=== PATIENT | female | born 1945 | race Caucasian/White ===

== ENCOUNTER 2017-03-25 07:02 | Day surgery (SDC) | payer MEDICARE, OTHER ==
[~2017-03-25 07:02] MED LIST: Lactated Ringers 1,000 ML IV SCH; Lidocaine 1%/Sod Bicarbonate in NS 8.4% 1 ML Syringe PRN; Sodium Chloride 0.9% 10 ML Syringe FLUSH PRN
[2017-03-25] MEDS ORDERED: Propofol 200 MG/20 ML SDV ONE ×3 (07:22→09:13)
[2017-03-25] MEDS ORDERED: fentaNYL 100 MCG/2 ML SDV ONE (07:22)
[2017-03-25] MEDS ORDERED: Lidocaine 1% 4 ML ONE (07:24)
[2017-03-25] MEDS ORDERED: Levalbuterol HCl 0.63 MG/3 ML Neb NEB ONE (07:34)
--- NOTE | 2017-03-25 07:44 | PCM.PREANE ---
Preanesthetic Assessment - Procedure Proposed Procedure: Diagnostic EGD/ Colonoscopy - Anesthesia/Transfusion/Family Hx Anesthesia History: Prior Anesthesia Without Reaction Family History of Anesthesia Reaction: No Transfusion History: No Prior Transfusion(s) - Review of Systems General: No Symptoms Pulmonary: Shortness of Breath (COPD) Cardiovascular: Other (HTN, HLD) Neurological: No Symptoms Other: Reports: None, Anxiety - Physical Assessment NPO Status Date: 03/24/17 NPO Status Time: 20:30 Pulse: 98 O2 Sat by Pulse Oximetry: 94 Respiratory Rate: 20 Blood Pressure: 173/78 Temperature: 36.4 C Height: 1.6 m Weight: 67 kg ASA Class: 3 Mental Status: Alert & Oriented x3 Airway Class: Mallampati = 2 Dentition: Reports: Dentures (upper and lower ) Thyro-Mental Finger Breadths: 3 Mouth Opening Finger Breadths: 3 ROM/Head Extension: Full Lungs: Clear to Auscultation, Normal Respiratory Effort Cardiovascular: Regular Rate, Regular Rhythm - Allergies Allergies/Adverse Reactions: Allergies Allergy/AdvReac Type Severity Reaction Status Date / Time cefaclor Allergy Cannot Verified 03/24/17 16:51 Remember - Blood Blood Available: No Product(s) Available: None - Anesthesia Plan Pre-Op Medication Ordered: Other (albuterol neb) - Acknowledgements Anesthesia Type Planned: MAC Pt an Appropriate Candidate for the Planned Anesthesia: Yes Alternatives and Risks of Anesthesia Discussed w Pt/Guardian: Yes Pt/Guardian Understands and Agrees with Anesthesia Plan: Yes PreAnesthesia Questionnaire Cardiovascular History: Reports: Heart Murmur, High Cholesterol, Hypertension, Other (See Below) Other Cardiovascular History: tachycardia Respiratory History: Reports: COPD Gastrointestinal History: Reports: None Genitourinary History: Reports: None 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 Musculoskeletal History: Reports: Osteoporosis Neurological History: Reports: None Psychiatric History: Reports: None Endocrine/Metabolic History: Reports: None Hematologic History: Reports: Anemia Immunologic History: Reports: None Oncologic (Cancer) History: Reports: None Dermatologic History: Reports: None - Past Surgical History HEENT Surgical History: Reports: Adenoidectomy, Tonsillectomy GI Surgical History: Reports: None Female Surgical History: Reports: Tubal Ligation Endocrine Surgical History: Reports: None Neurological Surgical History: Reports: None - SUBSTANCE USE Smoking Status *Q: Current Every Day Smoker (0.5ppd for 40+ years) Second Hand Smoke Exposure: No Recreational Drug Use History: No - HOME MEDS Home Medications: Home Meds Furosemide [Lasix] 20 mg PO DAILY 03/24/17 [History] Levalbuterol Tartrate [Xopenex Hfa] 1 puff INH TID 03/24/17 [History] Losartan/Hydrochlorothiazide [Losartan-HCTZ 100-12.5 MG] 1 tab PO DAILY [History] Multivitamin [Flintstones] 1 tab PO DAILY 03/24/17 [History] Triamcinolone Acetonide [Kenalog 0.1% Crm] 1 applic TOP DAILY PRN 03/24/17 [ History] atorvaSTATin [Lipitor] 10 mg PO DAILY 03/24/17 [History] - CURRENT (IN HOUSE) MEDS Current Meds: Current Medications Lactated Ringer's (Ringers, Lactated) 1,000 mls @ 125 mls/hr IV ASDIRECTED MATT Stop: 03/25/17 23:00 Levalbuterol HCl (Xopenex) 0.63 mg NEB ONETIME ONE Stop: 03/25/17 07:35 Lidocaine/Sodium Bicarbonate (Buffered Lidocaine 1% In Ns 8.4%) 0.25 ml .XX ONETIME PRN PRN Reason: Prior to IV Start Stop: 03/25/17 18:00 Sodium Chloride (Saline Flush) 10 ml FLUSH ASDIRECTED PRN PRN Reason: Keep Vein Open Stop: 03/25/17 18:00 Discontinued Medications Fentanyl (Sublimaze) Confirm Administered Dose 100 mcg .ROUTE .STK-MED ONE Stop: 03/25/17 07:23 Lidocaine HCl (Xylocaine-Mpf 1%) Confirm Administered Dose 4 mls @ as directed .ROUTE .STK-MED ONE Stop: 03/25/17 07:25 Propofol (Diprivan 20 Ml) Confirm Administered Dose 200 mg .ROUTE .STK-MED ONE Stop: 03/25/17 07:23
[2017-03-25] MEDS ORDERED: Albuterol 0.083% 2.5 MG/3 ML Neb Soln INH ONE (07:45)
--- NOTE | 2017-03-25 08:03 | PCM.HP ---
H&P History of Present Illness - General Date of Service: 03/25/17 Admit Problem/Dx: Heme Positive Stool Anemia Source of Information: Patient History Limitations: Reports: No Limitations - History of Present Illness Initial Comments - Free Text/Narative: 71 year old female here today on referral from Dr. Carter for Heme positive stool and unspecified anemia. She has not seen any blood in her stool. No abdominal pain. She has a history of diverticulosis with diverticulitis. There have been no recent episodes of abdominal pain or change in bowel habits. She denies any family history of colon cancer. She has never had a colonoscopy. She has moderate COPD and is treated with inhalers. SHe does not use oxygen. She has no chest pain with exertion or exercise. She notes chronic dyspnea on exertion that is unchanged. - Related Data Allergies/Adverse Reactions: Allergies Allergy/AdvReac Type Severity Reaction Status Date / Time cefaclor Allergy Cannot Verified 03/24/17 16:51 Remember Home Medications: Home Meds Furosemide [Lasix] 20 mg PO DAILY 03/24/17 [History] Levalbuterol Tartrate [Xopenex Hfa] 1 puff INH TID 03/24/17 [History] Losartan/Hydrochlorothiazide [Losartan-HCTZ 100-12.5 MG] 1 tab PO DAILY [History] Multivitamin [Flintstones] 1 tab PO DAILY 03/24/17 [History] Triamcinolone Acetonide [Kenalog 0.1% Crm] 1 applic TOP DAILY PRN 03/24/17 [ History] atorvaSTATin [Lipitor] 10 mg PO DAILY 03/24/17 [History] Past Medical History Cardiovascular History: Reports: Heart Murmur, High Cholesterol, Hypertension, Other (See Below) Other Cardiovascular History: tachycardia Respiratory History: Reports: COPD Gastrointestinal History: Reports: None Genitourinary History: Reports: None 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 Musculoskeletal History: Reports: Osteoporosis Neurological History: Reports: None Psychiatric History: Reports: None Endocrine/Metabolic History: Reports: None Hematologic History: Reports: Anemia Immunologic History: Reports: None Oncologic (Cancer) History: Reports: None Dermatologic History: Reports: None - Past Surgical History HEENT Surgical History: Reports: Adenoidectomy, Tonsillectomy GI Surgical History: Reports: None Female Surgical History: Reports: Tubal Ligation Endocrine Surgical History: Reports: None Neurological Surgical History: Reports: None Social & Family History - Tobacco Use Smoking Status *Q: Current Every Day Smoker (0.5ppd for 40+ years) Years of Tobacco use: 55 Packs/Tins Daily: 1 Second Hand Smoke Exposure: No - Caffeine Use Caffeine Use: Reports: None - Recreational Drug Use Recreational Drug Use: No Drug Use in Last 12 Months: No H&P Review of Systems - Review of Systems: Review Of Systems: See Below General: Reports: No Symptoms Pulmonary: Reports: Shortness of Breath, Cough Cardiovascular: Reports: No Symptoms Gastrointestinal: Reports: No Symptoms Genitourinary: Reports: No Symptoms Hematologic/Lymphatic: Reports: Anemia Exam - Exam Exam: See Below - Vital Signs Vital Signs: Last Vital Signs Temp 36.4 C 03/25/17 07:51 Pulse 98 03/25/17 07:51 Resp 20 03/25/17 07:51 BP 173/78 H 03/25/17 07:51 Pulse Ox 94 L 03/25/17 07:51 Weight: 67 kg - Exam General: Alert, Oriented Lungs: Normal Respiratory Effort, Decreased Breath Sounds Cardiovascular: Regular Rate, Regular Rhythm GI/Abdominal Exam: Normal Bowel Sounds, Soft, Non-Tender, No Mass Psychiatric: Anxious *Q Meaningful Use (ADM) - VTE *Q VTE Criteria *Q: - Stroke *Q Stroke Criteria *Q: - AMI *Q AMI Criteria *Q: - Problem List (1) Anemia SNOMED Code(s): 776812447 ICD Code: D64.9 - ANEMIA, UNSPECIFIED Status: Acute Current Visit: Yes Qualifiers: Anemia type: unspecified type Qualified Code(s): D64.9 - Anemia, unspecified (2) Diverticulosis of colon SNOMED Code(s): 319416795 ICD Code: K57.30 - DVRTCLOS OF LG INT W/O PERFORATION OR ABSCESS W/O BLEEDING Status: Acute Current Visit: Yes (3) Heme positive stool SNOMED Code(s): 38585192, 608248655 ICD Code: R19.5 - OTHER FECAL ABNORMALITIES Status: Acute Current Visit: Yes Problem List Initiated/Reviewed/Updated: Yes Orders Last 24hrs: Active Orders 24 hr Category Date Time Status Peripheral IV Care [RC] . DIRECTED Care 03/25/17 00:01 Active RT Aerosol Therapy [RC] ASDIRECTED Care 03/25/17 07:35 Active Verify Patient Consent Obtain [RC] ASDIRECTED Care 03/25/17 00:01 Active Lactated Ringers [Ringers, Lactated] 1,000 ml Med 03/25/17 00:01 Active IV ASDIRECTED Lidocaine 1%/Sod Bicarbonate [Buffered Lidocaine 1% in Med 03/25/17 00:01 Active NS 8.4%] 0.25 ml .XX ONETIME PRN Sodium Chloride 0.9% [Saline Flush] Med 03/25/17 00:01 Active 10 ml FLUSH ASDIRECTED PRN Medication Administration Instruction [OM.PC] Routine Oth 03/25/17 00:01 Ordered Peripheral IV Insertion Adult [OM.PC] Routine Oth 03/25/17 00:01 Ordered Medication Orders Lactated Ringer's (Ringers, Lactated) 1,000 mls @ 125 mls/hr IV ASDIRECTED MATT Stop: 03/25/17 23:00 Lidocaine/Sodium Bicarbonate (Buffered Lidocaine 1% In Ns 8.4%) 0.25 ml .XX ONETIME PRN PRN Reason: Prior to IV Start Stop: 03/25/17 18:00 Sodium Chloride (Saline Flush) 10 ml FLUSH ASDIRECTED PRN PRN Reason: Keep Vein Open Stop: 03/25/17 18:00 Assessment/Plan Comment:: Proceed with EGD and colonoscopy for evaluation. DIscussed benefits/risks with patient including perforation, bleeding, anesthesia complications, etc.
[2017-03-25] MEDS ORDERED: Glucagon,Human Recombinant 1 MG Vial ONE (08:59)
--- NOTE | 2017-03-25 09:16 | PCM48HPAN ---
Post Anesthesia Note - EVALUATION WITHIN 48HRS OF ANESTHETIC Vital Signs in Normal Range: Yes Patient Participated in Evaluation: Yes Respiratory Function Stable: Yes Airway Patent: Yes Cardiovascular Function Stable: Yes Hydration Status Stable: Yes Pain Control Satisfactory: Yes Nausea and Vomiting Control Satisfactory: Yes Mental Status Recovered: Yes
--- NOTE | 2017-03-25 09:20 | PCM.OPNOTE ---
- General Post-Op/Procedure Note Date of Surgery/Procedure: 03/25/17 Operative Procedure(s): EGD with cold forceps biopsy. Colonoscopy with cold forceps biopsy Findings: Esophagitis, Gastritis, Duodenitits, Colon polyps x 2, Moderate Diverticulosis Pre Op Diagnosis: Heme Positive Stool, Anemia, Diverticulosis Post-Op Diagnosis: Esophagitis, Gastritis, Duodenitis, Colon Polyps x 2, Moderate Diverticulosis Anesthesia Technique: MAC Primary Surgeon: Jack Kohler EBL in mLs: 5 Complications: None Condition: Good Free Text/Narrative:: After patient gave verbal and written consent she was placed on BP and pulse ox monitoring. She was given IV sedation which she tolerated well. The olympus gastroscope was passed down into the second portion of the duodenum. There was noted duodenitis in the 1st segment of the duodenum. Cold biopsy x 4 was performed with hemostasis noted. The scope was brought back into the stomach and gastritis with some bleeding was noted. Erythema was noted throughout the stomach. The antrum, stomach body were biopsied with cold forceps biopsy with hemostasis noted. The scope was retroflexed, then straightened out and brought back to the GE Junction. This was normal, distal esophagitis was noted. Cold forceps biopsy of the GE junction x 4 was performed with hemostasis noted. The stomach was decompressed of air and removed. The patient was then prepped for colonoscopy. The olympus colonoscope was inserted per rectum and advanced to the cecum with moderate amount of difficulty. Patient had a tortuous colon with small diameter colon. 1 ampule glucagon was given to facilitate passage. The appendiceal orfice and ileocecal valve were imaged documenting cecal intubation. THe prep was moderate. Some residual liquid stool had to be aspirated to achieve mucosal views. Diverticulosis of the ascending and sigmoid colon was moderate. 2 small 4 mm polyps were removed in the sigmoid, hemostasis was noted. The scope was then brought down into rectum, imaged and and scope was removed. No complications. Patient in stable and good condition.
[2017-03-25 09:25] VITALS: BP 125/44
== END 2017-03-25 10:40 | disposition home or self-care (01) ==
LOC: JD.SDS 07:02
PROVIDERS: ATTEND Family Medicine
DX: D12.5 Benign neoplasm of sigmoid colon (principal); K29.80 Duodenitis without bleeding; K20.9 Esophagitis, unspecified; K57.30 Diverticulosis of large intestine without perforation or abscess without bleeding; K25.9 Gastric ulcer, unspecified as acute or chronic, without hemorrhage or perforation; B33.20 Viral carditis, unspecified; I10 Essential (primary) hypertension; E78.00 Pure hypercholesterolemia, unspecified; J44.9 Chronic obstructive pulmonary disease, unspecified; Z79.899 Other long term (current) drug therapy; Z98.890 Other specified postprocedural states; Z98.51 Tubal ligation status; F17.210 Nicotine dependence, cigarettes, uncomplicated
CPT/HCPCS: 43239; 45380; 94664; J1610; J3010; J7120; 00810; 88305; 88342; J2704

== ENCOUNTER 2017-06-16 01:03 | Emergency (ER) | payer MEDICARE, OTHER ==
[2017-06-16] MEDS ORDERED: Sodium Chloride 0.9% 10 ML Syringe FLUSH PRN (01:15)
--- NOTE | 2017-06-16 01:17 | EDM.PDOC ---
ED HPI GENERAL MEDICAL PROBLEM - General Chief Complaint: Neuro Symptoms/Deficits Stated Complaint: [facility] Time Seen by Provider: 06/16/17 01:15 Source of Information: Reports: Patient, EMS, Family History Limitations: Reports: No Limitations - History of Present Illness INITIAL COMMENTS - FREE TEXT/NARRATIVE: The patient presents with possible stroke. The patient's last time know well was 9:30pm [place]. Her said she went to bed at that time. The patient says she went to bed feeling fine. She sleeps in a separate bedroom then her because he snores. She called for him about 12:45 to 1am needing help. She could not move the left side of her body. She also had a hard time getting her words. She tells me that her left arm was not affected. 911 was called. When EMS arrived, the patient was having trouble speaking and she could not move her left leg. That got better and she was able to walk to the cot. When she arrived to us, she said something does not feel right to her left leg. She has some weakness in it and it does not feel right. She also had some numbness to the left leg. She denies a headache, fever, chills, cough , congestion, runny nose, chest pain, shortness of breath, abdominal pain, nausea, or diarrhea. She has no history of a stroke. She does have hypertension that is controlled on medications. She does smoke and shew as recently diagnosed with COPD. Onset: Sudden Duration: Minutes: (45 but last time know well was 9:30pm) Location: Reports: Lower Extremity, Left Quality: Reports: Other (Does not feel right) Improves with: Reports: None Worsens with: Reports: None Context: Reports: Activity (Sleeping) Associated Symptoms: Denies: Chest Pain, Cough, Fever/Chills, Headaches, Nausea/ Vomiting, Shortness of Breath - Related Data Allergies Allergy/AdvReac Type Severity Reaction Status Date / Time cefaclor Allergy Cannot Verified 03/24/17 16:51 Remember Home Meds: Home Meds Furosemide [Lasix] 20 mg PO DAILY 03/24/17 [History] Levalbuterol Tartrate [Xopenex Hfa] 1 puff INH TID 03/24/17 [History] Losartan/Hydrochlorothiazide [Losartan-HCTZ 100-12.5 MG] 1 tab PO DAILY [History] Multivitamin [Flintstones] 1 tab PO DAILY 03/24/17 [History] Triamcinolone Acetonide [Kenalog 0.1% Crm] 1 applic TOP DAILY PRN 03/24/17 [ History] atorvaSTATin [Lipitor] 10 mg PO DAILY 03/24/17 [History] Pantoprazole Sodium [Protonix] 40 mg PO DAILY #90 tablet. 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 Musculoskeletal History: Reports: Osteoporosis Neurological History: Reports: None Psychiatric History: Reports: None Endocrine/Metabolic History: Reports: None Hematologic History: Reports: Anemia Immunologic History: Reports: None Oncologic (Cancer) History: Reports: None Dermatologic History: Reports: None - Past Surgical History HEENT Surgical History: Reports: Adenoidectomy, Tonsillectomy GI Surgical History: Reports: None Female Surgical History: Reports: Tubal Ligation Endocrine Surgical History: Reports: None Neurological Surgical History: Reports: None Social & Family History - Tobacco Use Smoking Status *Q: Current Every Day Smoker (0.5ppd for 40+ years) Years of Tobacco use: 55 Packs/Tins Daily: 1 Second Hand Smoke Exposure: No - Caffeine Use Caffeine Use: Reports: None - Recreational Drug Use Recreational Drug Use: No Drug Use in Last 12 Months: No ED ROS GENERAL - Review of Systems Review Of Systems: See Below Constitutional: Reports: No Symptoms HEENT: Reports: No Symptoms Respiratory: Reports: No Symptoms Cardiovascular: Reports: No Symptoms Endocrine: Reports: No Symptoms GI/Abdominal: Reports: No Symptoms : Reports: No Symptoms Musculoskeletal: Reports: No Symptoms Skin: Reports: No Symptoms Neurological: Reports: Numbness (Left leg), Weakness (Left leg). Denies: Confusion, Headache ED EXAM, NEURO - Physical Exam Exam: See Below Exam Limited By: No Limitations General Appearance: Alert, No Apparent Distress Ears: Normal External Exam Nose: Normal Inspection Head Exam: Atraumatic, Normocephalic Neck: Normal Inspection Respiratory/Chest: No Respiratory Distress, Lungs Clear, Normal Breath Sounds Cardiovascular: Regular Rate, Rhythm, No Edema, No Murmur GI/Abdominal: Soft, Non-Tender, No Organomegaly, No Mass Neurological: Alert, Oriented x 3, Other (Left leg has numbness grossly as compared to the right. She has mild to moderate weakness to her left leg. Her arm) Course - Vital Signs Last Recorded V/S: Last Vital Signs Temp 97.6 F 06/16/17 01:11 Pulse 100 06/16/17 01:11 Resp 25 H 06/16/17 01:11 BP 172/53 H 06/16/17 01:11 Pulse Ox 92 L 06/16/17 01:11 - Orders/Labs/Meds Orders: Active Orders 24 hr Category Date Time Status Cardiac Monitoring [RC] . DIRECTED Care 06/16/17 01:15 Active EKG Documentation Completion [RC] STAT Care 06/16/17 01:15 Active Oxygen Therapy [RC] PRN Care 06/16/17 01:15 Active Peripheral IV Care [RC] . DIRECTED Care 06/16/17 01:15 Active Head wo Cont [CT] Stat Exams 06/16/17 01:16 Taken Tibia Fibula Lt [CR] Stat Exams 06/16/17 01:17 Ordered COMPREHENSIVE METABOLIC PN,CMP [CHEM] Stat Lab 06/16/17 01:33 Received INR,PT,PROTHROMBIN TIME [COAG] Stat Lab 06/16/17 01:33 Received PTT,PARTIAL THROMBOPLSTIN TIME [COAG] Stat Lab 06/16/17 01:33 Received TROPONIN I [CHEM] Stat Lab 06/16/17 01:33 Received Sodium Chloride 0.9% [Saline Flush] Med 06/16/17 01:15 Active 10 ml FLUSH ASDIRECTED PRN Peripheral IV Insertion Adult [OM.PC] Stat Oth 06/16/17 01:15 Ordered Medication Orders Sodium Chloride (Saline Flush) 10 ml FLUSH ASDIRECTED PRN PRN Reason: Keep Vein Open Labs: Laboratory Tests 06/16/17 06/16/17 Range/Units 01:16 01:33 WBC 12.94 H (3.98-10.04) K/mm3 RBC 4.20 (3.98-5.22) M/mm3 Hgb 11.9 (11.2-15.7) gm/L Hct 36.3 (34.1-44.9) % MCV 86.4 (79.4-94.8) fl MCH 28.3 (25.6-32.2) pg MCHC 32.8 (32.2-35.5) g/dl RDW Std Deviation 45.2 (36.4-46.3) fL Plt Count 374 H (182-369) K/mm3 MPV 8.1 L (9.4-12.3) fl Neut % (Auto) 71.9 H (34.0-71.1) % Lymph % (Auto) 14.7 L (19.3-51.7) % [place] % (Auto) 10.0 (4.7-12.5) % Eos % (Auto) 2.8 (0.7-5.8) Baso % (Auto) 0.2 (0.1-1.2) % Neut # (Auto) 9.30 H (1.56-6.13) K/mm3 Lymph # (Auto) 1.90 (1.18-3.74) K/mm3 [place] # (Auto) 1.30 H (0.24-0.36) K/mm3 Eos # (Auto) 0.36 (0.04-0.36) K/mm3 Baso # (Auto) 0.03 (0.01-0.08) K/mm3 POC Glucose 139 H (83-110) mg/dL Meds: Medications Generic Name Dose Route Start Last Admin Trade Name Freq PRN Reason Stop Dose Admin Sodium Chloride 10 ml 06/16/17 01:15 Saline Flush FLUSH ASDIRECTED PRN Keep Vein Open Discontinued Medications Generic Name Dose Route Start Last Admin Trade Name Freq PRN Reason Stop Dose Admin Alteplase, Recombinant Confirm 06/16/17 01:42 Activase Administered 06/16/17 01:43 Dose 100 mg .ROUTE .STK-MED ONE - Re-Assessments/Exams Free Text/Narrative Re-Assessment/Exam: 06/16/17 01:50 A stroke alert was called. I came into the room right away. The patient was alert and orientated X 3. She said her left leg did not feel right. She had mild to moderate weakness to the left leg and numbness. I did a stat CT and there did not appear to be any bleed. I called [facility] in [place] and talked with Dr Nina the neurologist [employer] consultant and he looked at the CT and he did not feel that was a bleed. We discussed her case and how she is still a candidate for TPA. She is about 4 hours out. She was last know well at 9:30pm. He advised me to go ahead and give it. I talked it over with the patient and discussed the risks and benefits. They were in agreement. The patient got the TPA within the 4.5hours. 06/16/17 01:54 [facility] radiologist called and said her CT shows a small patch of abnormal hypodensity involving the right posterior parietal lobe concerning for possible acute infarct. No acute intracranial hemorrhage or mass effect. Her CBC came back and she has a WBC of 12.94 and normal Hgb and platelets. Her blood glucose was 139. The rest of her labs were pending. She will be fling to [place] by [employer]. Departure - Departure Time of Disposition: 02:05 Disposition: DC/Tfer to Acute Hospital 02 Condition: Serious Clinical Impression: Cerebrovascular accident (CVA) Qualifiers: CVA mechanism: unspecified Qualified Code(s): I63.9 - Cerebral infarction, unspecified - Discharge Information Forms: ED Department Discharge - My Orders Last 24 Hours: My Active Orders 06/16/17 01:15 Cardiac Monitoring [RC] . DIRECTED EKG Documentation Completion [RC] STAT Oxygen Therapy [RC] PRN Peripheral IV Care [RC] . DIRECTED Sodium Chloride 0.9% [Saline Flush] 10 ml FLUSH ASDIRECTED PRN Peripheral IV Insertion Adult [OM.PC] Stat 06/16/17 01:16 Head wo Cont [CT] Stat 06/16/17 01:17 Tibia Fibula Lt [CR] Stat 06/16/17 01:33 COMPREHENSIVE METABOLIC PN,CMP [CHEM] Stat INR,PT,PROTHROMBIN TIME [COAG] Stat PTT,PARTIAL THROMBOPLSTIN TIME [COAG] Stat TROPONIN I [CHEM] Stat - Assessment/Plan Last 24 Hours: My Active Orders 06/16/17 01:15 Cardiac Monitoring [RC] . DIRECTED EKG Documentation Completion [RC] STAT Oxygen Therapy [RC] PRN Peripheral IV Care [RC] . DIRECTED Sodium Chloride 0.9% [Saline Flush] 10 ml FLUSH ASDIRECTED PRN Peripheral IV Insertion Adult [OM.PC] Stat 06/16/17 01:16 Head wo Cont [CT] Stat 06/16/17 01:17 Tibia Fibula Lt [CR] Stat 06/16/17 01:33 COMPREHENSIVE METABOLIC PN,CMP [CHEM] Stat INR,PT,PROTHROMBIN TIME [COAG] Stat PTT,PARTIAL THROMBOPLSTIN TIME [COAG] Stat TROPONIN I [CHEM] Stat
[2017-06-16 01:37] VITALS: BP 172/53
--- NOTE | 2017-06-16 06:46 | CT ---
Head CT Technique: Multiple axial sections through the brain were obtained. Intravenous contrast was not utilized. Comparison: No previous intracranial imaging is available. Findings: Ventricles along with basal cisterns and sulci over the convexities are mildly prominent. Diffuse diminished density noted within the periventricular and subcortical white matter compatible with small vessel ischemic demyelination change. Low-density area noted within the posterior right parietal region extending into the cortex possibly due to small infarct, uncertain as to age. No other abnormal parenchymal densities are seen. No evidence of intracranial hemorrhage. No midline shift or mass effect is seen. Bone window settings were reviewed which show no acute calvarial abnormality. Visualized sinuses are clear. Impression: 1. Senescent change as described above. 2. Small infarct within the posterior right parietal region, age is indeterminate. MRI would be needed to further age this finding if clinically needed. 3. No acute intracranial hemorrhage is seen. Diagnostic code #3 Agree with preliminary report issued by [place] [facility] ([facility] preliminary report dictated on 06/16/17, 2:40 AM Central Time)
== END 2017-06-16 02:19 ==
LOC: JD.ED 01:03
DX: I63.9 Cerebral infarction, unspecified (principal); I10 Essential (primary) hypertension; E78.00 Pure hypercholesterolemia, unspecified; J44.9 Chronic obstructive pulmonary disease, unspecified; F17.210 Nicotine dependence, cigarettes, uncomplicated; Z88.1 Allergy status to other antibiotic agents
CPT/HCPCS: 36415; 70450; 80053; 82962; 84484; 85025; 85610; 85730; 93005; 96365; 96376; 99285; J2997; J7050; 93010

== ENCOUNTER 2017-07-04 09:26 | Inpatient (IN) | payer MEDICARE, OTHER ==
--- NOTE | 2017-07-04 09:49 | EDM.PDOC ---
ED HPI GENERAL MEDICAL PROBLEM - General Chief Complaint: Respiratory Problem Stated Complaint: [facility] Time Seen by Provider: 07/04/17 09:49 Source of Information: Reports: Patient, Family (son) History Limitations: Reports: No Limitations - History of Present Illness INITIAL COMMENTS - FREE TEXT/NARRATIVE: 71-year-old female brought to the ED from local [facility] where she entered 3 days ago. Patient suffered a dense stroke with complete left hemiparesis approximate 18 days ago. 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 She underwent bilateral endarterectomy. Her kidneys failed and she required bedside dialysis on at least 3 occasions. Off dialysis for 3 days. She had a central line placed in her left subclavian she had dialysis lines placed in her right femoral artery and vein. She did have a Yates catheter up until leaving the hospital. Subsequently she's become more dyspneic over the last 48 hours particularly noted yesterday. Noted increased edema of the lower extremities and difficulty breathing this morning. O2 sats were in the mid 80s. Denies cough. Patient is not speaking. She was intubated twice and has some concerns about vocal cord damage. Also of course the speech deficit from the stroke. She was speaking to her sons prior however. Patient is been for the most part been bedridden. She is not able to walk due to left- sided paresis. She does have some spontaneous movement in her left hand and arm but it's extremely weak I graded 1 out of 5. She was receiving physiotherapy occupational therapy and speech therapy while in the hospital. Part of the issue seems to be a reluctance on behalf of the patient to eat or drink. She is taking boost possibly because of the taste or the texture. One considers whether or not she has given up on living.? Onset: Gradual Onset Date: 07/02/17 Duration: Hour(s): Location: Reports: Chest, Generalized (Increasing edema and shortness of breath. ) Quality: Reports: Other (Dyspnea) Severity: Moderate Improves with: Reports: None Worsens with: Reports: Movement Context: Reports: Other (Multiple medical illnesses). Denies: Activity, Exercise, Lifting, Sick Contact, Trauma Associated Symptoms: Reports: Loss of Appetite, Malaise, Shortness of Breath, Weakness (Especially the left side.). Denies: Confusion, Chest Pain, Cough, cough w sputum, Diaphoresis, Fever/Chills, Headaches, Nausea/Vomiting, Rash, Seizure, Syncope Treatments [employer]IST: Reports: IV/IO, Other (see below) Other Treatments [employer] SPECIALIST: Lasix - Related Data Allergies Allergy/AdvReac Type Severity Reaction Status Date / Time cefaclor Allergy Cannot Verified 07/04/17 09:38 Remember Home Meds: Home Meds ALPRAZolam [Xanax] 0.25 mg PO TID 07/04/17 [History] Acetaminophen [Acetaminophen Extra Strength] 2 tab PO Q6H PRN 07/04/17 [History] Aspirin 81 mg PO DAILY 07/04/17 [History] Bisacodyl [Dulcolax] 10 mg RECTAL DAILY PRN 07/04/17 [History] Docusate Sodium/Sennosides [Senna Plus] 1 tab PO BID 07/04/17 [History] Docusate Sodium/Sennosides [Senna Plus] 1 tab PO DAILY PRN 07/04/17 [History] Fluticasone/Vilanterol [Breo Ellipta 100-25 MCG Inhalation Kit] 1 puff IH DAILY 07/04/17 [History] Furosemide [Lasix] 20 mg PO DAILY 07/04/17 [History] Ipratropium/Albuterol Sulfate [Iprat-Albut 0.5-3(2.5) mg/3 ml] 3 ml IH QID 07/04 [History] Levalbuterol Tartrate [Xopenex Hfa] 2 puff IH QID 07/04/17 [History] Losartan/Hydrochlorothiazide [Hyzaar 100-12.5 Tablet] 1 tab PO DAILY 07/04/17 [ History] Multivitamin with Minerals [Multiple Vitamin] 1 tab PO DAILY 07/04/17 [History] Nicotine [Nicotine Patch] 1 patch TD DAILY 07/04/17 [History] Pantoprazole [ProTONIX] 40 mg PO DAILY 07/04/17 [History] Ticagrelor [Brilinta] 90 mg PO BID 07/04/17 [History] Triamcinolone Acetonide [Triamcinolone Acetonide 0.1% Crm] 1 applic TRDERM DAILY PRN 07/04/17 [History] atorvaSTATin [Lipitor] 40 mg PO DAILY 07/04/17 [History] Past Medical History Cardiovascular History: Reports: Heart Murmur, High Cholesterol, Hypertension, Other (See Below) Other Cardiovascular History: tachycardia Respiratory History: Reports: COPD Gastrointestinal History: Reports: None Genitourinary History: Reports: Retention, Urinary CREELER History: Reports: None Musculoskeletal History: Reports: Osteoporosis Neurological History: Reports: CVA Psychiatric History: Reports: None Endocrine/Metabolic History: Reports: None Hematologic History: Reports: Anemia Immunologic History: Reports: None Oncologic (Cancer) History: Reports: None Dermatologic History: Reports: None - Past Surgical History HEENT Surgical History: Reports: Adenoidectomy, Tonsillectomy GI Surgical History: Reports: None Female Surgical History: Reports: Tubal Ligation Endocrine Surgical History: Reports: None Neurological Surgical History: Reports: None Social & Family History - Tobacco Use Smoking Status *Q: Former Smoker Tobacco Use Within Last Twelve Months: Cigarettes (Usually smoked at least a pack or more cigarettes per day for the last 55 years. She currently is on a nicotine patch left deltoid 21 mg strength.) Years of Tobacco use: 55 Packs/Tins Daily: 1 Used Tobacco, but Quit: Yes Month Tobacco Last Used: 06/2017 Second Hand Smoke Exposure: No - Caffeine Use Caffeine Use: Reports: None - Recreational Drug Use Recreational Drug Use: No Drug Use in Last 12 Months: No - Living Situation & Occupation Living situation: Reports: , [facility] ([facility]tered [facility] on July 01.) Occupation: Retired ED ROS GENERAL - Review of Systems Review Of Systems: Unable To Obtain (Unable to obtain from the patient as she is nonverbal. History was provided by her 2 sons.) ED EXAM, GENERAL - Physical Exam Exam: See Below Exam Limited By: Physical Impairment (Unable to speak at this time. Left sided hemiparesis.) General Appearance: Moderate Distress (Pallid and warm to palpation.), Other Eye Exam: Bilateral Eye: Normal Inspection (Mild pallor.) Throat/Mouth: Other Head: Atraumatic, Normocephalic (Tongue is extremely dry coated and shriveled up.) Neck: Normal Inspection, Supple, Non-Tender, Full Range of Motion. No: Lymphadenopathy (L), Lymphadenopathy (R) Respiratory/Chest: Respiratory Distress (Mild tachypnea but-hypoxic on room air. ), Decreased Breath Sounds (Decreased breath sounds to the lower 40% of lung renae. Some dullness to percussion in the right lung field suggesting a pleural effusion.). No: Normal Breath Sounds, Rales, Rhonchi, Wheezing Cardiovascular: No Murmur (108/m on my assessment.), No Rub, Tachycardia, Irregularly Irregular (A Ectopic beats periodically appreciated.). No: Normal Peripheral Pulses, No Edema Peripheral Pulses: 1+: Posterior Tibial (L), Posterior Tibial (R), Dorsalis Pedis (L), Dorsalis Pedis (R) GI/Abdominal: Normal Bowel Sounds, Soft, Non-Tender, No Organomegaly, Other ( Urinary bladder is not palpable.) (Female) Exam: Other (Has a Yates catheter in place that was placed this morning at the [facility].) Back Exam: Normal Inspection. No: Full Range of Motion, CVA Tenderness (L), CVA Tenderness (R), Decreased Range of Motion, Muscle Spasm Extremities: Pedal Edema (3+ pitting up edema up to the knees bilaterally. Left leg has a good deal of ecchymotic areas in various degrees of healing from ankle to knee.), Other (There is bandages over her right femoral artery and vein where the dialysis catheters were removed. There is surrounding ecchymoses. Family reports that this area was contaminated by stool as the patient was bedridden and they identified this to have occurred on a couple of occasions.) Neurological: Alert, CN II-XII Intact, Normal Cognition, Other (she does speak in one or 2 word sentences.). No: Normal Gait (She does not walk.), No Motor/ Sensory Deficits Psychiatric: Flat Affect Skin Exam: Warm, Dry, Intact, Pallor (Moderate pallor.) EKG INTERPRETATION EKG Date: 07/04/17 Time: 10:30 Rhythm: Other (Sinus tachycardia at 10 2/m.) Rate (Beats/Min): 102 [place]: Normal P-Wave: Enlarged (Suspect left atrial hypertrophy pattern.) QRS: Other (Left ventricular hypertrophy pattern.) ST-T: Other (Mildly decreased voltage in the limb leads.) QT: Normal EKG Interpretation Comments: Borderline ECG Course - Vital Signs Last Recorded V/S: Last Vital Signs Temp 37.2 C 07/04/17 09:45 Pulse 103 H 07/04/17 09:33 Resp 18 07/04/17 09:33 BP 161/58 H 07/04/17 09:33 Pulse Ox 97 07/04/17 12:54 - Orders/Labs/Meds Orders: Active Orders 24 hr Category Date Time Status EKG Documentation Completion [RC] STAT Care 07/04/17 10:04 Active Yates Catheter Insertion [Insert Urinary Catheter] [OM. Care 07/04/17 10:15 Ordered PC] Q24H Oxygen Therapy [RC] ASDIRECTED Care 07/04/17 10:04 Active Peripheral IV Care [RC] . DIRECTED Care 07/04/17 10:05 Active RT Aerosol Therapy [RC] ASDIRECTED Care 07/04/17 10:19 Active RT Aerosol Therapy [RC] ASDIRECTED Care 07/04/17 12:39 Active Urinary Catheter Assessment [RC] ASDIRECTED Care 07/04/17 10:10 Active CULTURE ANAEROBIC + SMEAR [RM] Stat Lab 07/04/17 12:35 Received CULTURE BLOOD [BC] Stat Lab 07/04/17 10:05 Ordered CULTURE BLOOD [BC] Stat Lab 07/04/17 10:05 Ordered Sodium Chloride 0.9% [Normal Saline] 1,000 ml Med 07/04/17 10:15 Active IV ASDIRECTED Sodium Chloride 0.9% [Saline Flush] Med 07/04/17 10:04 Active 10 ml FLUSH ASDIRECTED PRN Vancomycin [Vancocin] 1 gm Med 07/04/17 13:35 Active Sodium Chloride 0.9% [Normal Saline] 250 ml IV ONETIME Blood Culture x2 Reflex Set [OM.PC] Stat Oth 07/04/17 10:05 Ordered Peripheral IV Insertion Adult [OM.PC] Stat Oth 07/04/17 10:04 Ordered Medication Orders Sodium Chloride (Normal Saline) 1,000 mls @ 100 mls/hr IV ASDIRECTED MATT Last Admin: 07/04/17 10:45 Dose: 100 mls/hr Vancomycin HCl 1 gm/ Sodium (Chloride) 250 mls @ 250 mls/hr IV ONETIME ONE Stop: 07/04/17 14:34 Last Admin: 07/04/17 14:04 Dose: 250 mls/hr Sodium Chloride (Saline Flush) 10 ml FLUSH ASDIRECTED PRN PRN Reason: Keep Vein Open Last Admin: 07/04/17 10:45 Dose: 10 ml Labs: Laboratory Tests 07/04/17 07/04/17 07/04/17 Range/Units 10:35 10:35 10:35 WBC 12.43 H (3.98-10.04) K/mm3 RBC 3.16 L (3.98-5.22) M/mm3 Hgb 9.2 L (11.2-15.7) gm/L Hct 29.3 L (34.1-44.9) % MCV 92.7 (79.4-94.8) fl MCH 29.1 (25.6-32.2) pg MCHC 31.4 L (32.2-35.5) g/dl RDW Std Deviation 55.7 H (36.4-46.3) fL Plt Count 633 H (182-369) K/mm3 MPV 8.4 L (9.4-12.3) fl Neutrophils % (Manual) 73 H (40-60) % Band Neutrophils % 5 (0-10) % Lymphocytes % (Manual) 16 L (20-40) % Atypical Lymphs % 0 % Monocytes % (Manual) 4 (2-10) % Eosinophils % (Manual) 2 (0.7-5.8) % Basophils % (Manual) 0 L (0.1-1.2) Platelet Estimate See note Polychromasia 1+ slight Anisocytosis 1+ slight RBC Morph Comment Not Reportable PT 11.2 (8.0-13.0) SECONDS INR 1.03 Sodium 137 (136-145) mEq/L Potassium 3.7 (3.5-5.1) mEq/L Chloride 100 (98-107) mEq/L Carbon Dioxide 26 (21-32) mEq/L Anion Gap 14.7 (5-15) BUN 21 H (7-18) mg/dL Creatinine 1.3 H (0.55-1.02) mg/dL Est Cr Clr Drug Dosing TNP Estimated GFR (MDRD) 40 (>60) mL/min BUN/Creatinine Ratio 16.2 (14-18) Glucose 130 H (83-115) mg/dL Lactic Acid (0.4-2.0) mmol/L Calcium 9.7 (8.5-10.1) mg/dL Magnesium 1.3 L (1.8-2.4) mg/dl Total Bilirubin 0.7 (0.2-1.0) mg/dL AST 31 (15-37) U/L ALT 48 (14-59) U/L Alkaline Phosphatase 100 (46-116) U/L CK-MB (CK-2) 2.1 (0-3.6) ng/ml Troponin I < 0.017 (0.00-0.056) ng/mL C-Reactive Protein 7.0 H* (<1.0) mg/dL NT-Pro-B Natriuret Pep 928 H (0-125) pg/mL Total Protein 7.3 (6.4-8.2) g/dl Albumin 2.7 L (3.4-5.0) g/dl Globulin 4.6 gm/dL Albumin/Globulin Ratio 0.6 L (1-2) Urine Color (Yellow) Urine Appearance (Clear) Urine pH (5.0-8.0) Ur Specific [place] (1.005-1.030) Urine Protein (Negative) Urine Glucose (UA) (Negative) Urine Ketones (Negative) Urine Occult Blood (Negative) Urine Nitrite (Negative) Urine Bilirubin (Negative) Urine Urobilinogen (0.2-1.0) Ur Leukocyte Esterase (Negative) Urine RBC (0-5) /hpf Urine WBC (0-5) /hpf Ur Epithelial Cells (0-5) /hpf Urine Bacteria (FEW) /hpf Urine Mucus (FEW) /hpf 07/04/17 07/04/17 Range/Units 10:50 11:19 WBC (3.98-10.04) K/mm3 RBC (3.98-5.22) M/mm3 Hgb (11.2-15.7) gm/L Hct (34.1-44.9) % MCV (79.4-94.8) fl MCH (25.6-32.2) pg MCHC (32.2-35.5) g/dl RDW Std Deviation (36.4-46.3) fL Plt Count (182-369) K/mm3 MPV (9.4-12.3) fl Neutrophils % (Manual) (40-60) % Band Neutrophils % (0-10) % Lymphocytes % (Manual) (20-40) % Atypical Lymphs % % Monocytes % (Manual) (2-10) % Eosinophils % (Manual) (0.7-5.8) % Basophils % (Manual) (0.1-1.2) Platelet Estimate Polychromasia Anisocytosis RBC Morph Comment PT (8.0-13.0) SECONDS INR Sodium (136-145) mEq/L Potassium (3.5-5.1) mEq/L Chloride (98-107) mEq/L Carbon Dioxide (21-32) mEq/L Anion Gap (5-15) BUN (7-18) mg/dL Creatinine (0.55-1.02) mg/dL Est Cr Clr Drug Dosing Estimated GFR (MDRD) (>60) mL/min BUN/Creatinine Ratio (14-18) Glucose (83-115) mg/dL Lactic Acid 0.7 (0.4-2.0) mmol/L Calcium (8.5-10.1) mg/dL Magnesium (1.8-2.4) mg/dl Total Bilirubin (0.2-1.0) mg/dL AST (15-37) U/L ALT (14-59) U/L Alkaline Phosphatase (46-116) U/L CK-MB (CK-2) (0-3.6) ng/ml Troponin I (0.00-0.056) ng/mL C-Reactive Protein (<1.0) mg/dL NT-Pro-B Natriuret Pep (0-125) pg/mL Total Protein (6.4-8.2) g/dl Albumin (3.4-5.0) g/dl Globulin gm/dL Albumin/Globulin Ratio (1-2) Urine Color Straw (Yellow) Urine Appearance Clear (Clear) Urine pH 7.0 (5.0-8.0) Ur Specific [place] 1.020 (1.005-1.030) Urine Protein Negative (Negative) Urine Glucose (UA) Negative (Negative) Urine Ketones Negative (Negative) Urine Occult Blood Trace-intact H (Negative) Urine Nitrite Negative (Negative) Urine Bilirubin Negative (Negative) Urine Urobilinogen 0.2 (0.2-1.0) Ur Leukocyte Esterase Negative (Negative) Urine RBC 5-10 H (0-5) /hpf Urine WBC Not seen (0-5) /hpf Ur Epithelial Cells 0-5 (0-5) /hpf Urine Bacteria Not seen (FEW) /hpf Urine Mucus Not seen (FEW) /hpf Meds: Medications Generic Name Dose Route Start Last Admin Trade Name Freq PRN Reason Stop Dose Admin Sodium Chloride 1,000 mls @ 100 mls/hr 07/04/17 10:15 07/04/17 10:45 Normal Saline IV 100 mls/hr ASDIRECTED MATT Administration Vancomycin HCl 1 gm/ Sodium 250 mls @ 250 mls/hr 07/04/17 13:35 07/04/17 14: 04 Chloride IV 07/04/17 14:34 250 mls/hr ONETIME ONE Administration Sodium Chloride 10 ml 07/04/17 10:04 07/04/17 10:45 Saline Flush FLUSH 10 ml ASDIRECTED PRN Administration Keep Vein Open Discontinued Medications Generic Name Dose Route Start Last Admin Trade Name Freq PRN Reason Stop Dose Admin Albuterol/Ipratropium 3 ml 07/04/17 10:18 07/04/17 10:49 Duoneb 3.0-0.5 Mg/3 Ml NEB 07/04/17 10:19 3 ml ONETIME ONE Administration Albuterol/Ipratropium 3 ml 07/04/17 12:38 07/04/17 12:53 Duoneb 3.0-0.5 Mg/3 Ml NEB 07/04/17 12:39 3 ml ONETIME ONE Administration Furosemide 40 mg 07/04/17 10:19 07/04/17 10:45 Lasix IVPUSH 07/04/17 10:20 40 mg NOW ONE Administration Levofloxacin/Dextrose 750 mg/ 150 mls @ 100 mls/hr 07/04/17 12:01 07/04/17 12 :09 Premix IV 07/04/17 13:30 100 mls/hr ONETIME ONE Administration - Radiology Interpretation Free Text/Narrative:: 71-year-old female who spent 17 days in hospital in [facility] after suffering a dense left-sided hemiparesis. She did have bilateral endarterectomies well in hospital. She did go into renal failure and required dialysis at the bedside on at least 3 occasions. Last dialysis was 3 days before discharge which was July 28. She was [facility] on July [facility] to [facility] local [facility] [place]. Over the weekend she has retained a good deal of fluid particularly in her lower extremities are become much more dyspneic at rest. This suggests that she is developing worsening congestive failure. Renal failure may be part of this. She is refused to eat or drink much. Tongue is very dry and coated. Appears to have a low-grade fever. Temperature will be done. Plan complete septic workup will be carried out. We'll give her Lasix 40 mg IV. A Yates catheter was placed this morning at the [facility] and be collected connected to a urometer. - Re-Assessments/Exams Free Text/Narrative Re-Assessment/Exam: 07/04/17 11:03 rectal temperature was reported at 99. Chest x-ray done portably shows normal cardiac silhouette. There is diffuse vascular congestion congestion particularly affecting the lower lobes is slight blunting of both costovertebral angles worse on the right as compared to the left. There is no significant pleural effusion bilaterally. 07/04/17 12:00 Labs are back. White count was 12.43 with a left shift of 73% neutrophils and 5% band cells. Hemoglobin is low at 9.2 with a hematocrit of 29.3. MCV is normal at 92.7. 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 PT is 11.2 with an INR 1.03. Sodium 137. Potassium 3.7. Chloride 100. Bicarbonate 26. And a gap is normal at 14.7. BUNs 21 and creatinine is 1.3. EGFR is 40. Glucose is 1:30 magnesium is 1.3 which is low. Liver function normal CK-MB fraction 2.1 .Troponin I is less than 0.017 C- reactive protein is elevated at 7.0 suggesting underlying bacterial infection BNP is pending. Lactic acid was is 0.7. Urinalysis shows trace of occult blood 5 -10 RBCs negative leukocyte esterase and no wbc's identified. Therefore urine does not appear to be source of infection. She has had multiple lines in place with 2 central lines and catheters in both femoral artery and vein on the right side. We will start her on Levaquin 750 mg IV at this time with concern for possible graft negative sepsis from wound contamination right groin.. Of note considered Rocephin but she has a well-defined allergy to cefaclor. Will likely require other medication to cover for potential MRSA infection. I will discuss this with hospitalist. Awaiting the BNP at this time. 07/04/17 12:23 BNP came back at 928 with normal being up to 125 in our lab. This correlates with this x-ray of the chest. We had a good look at the wound in her right groin. There is no signs of active infection. There are several small Steri-Strips present at the site of femoral artery puncture. There is questionable whether there was any real purulent material in this area. Cultures were obtained but I suspect they are skin organisms only. Patient is asking for another DuoNeb treatment as it seemed to help quite a bit up or get up some secretions. She is very hoarse because of being intubated for so long. 07/04/17 13:34 patient meets criteria for inpatient admission. I did speak with Dr. Tobias, crowd controller hospitalist and he is accepted care. She will be admitted to [facility] surgery on telemetry. He suggest that we start her on vancomycin 1 g IV to cover for MRSA and I will start this medication in the department. Departure - Departure Time of Disposition: 13:35 Disposition: Admitted As Inpatient 64 Condition: Poor Clinical Impression: Febrile illness, acute, Hemiparesis affecting left side as late effect of cerebrovascular accident Congestive heart failure Qualifiers: Congestive heart failure type: unspecified congestive heart failure type Congestive heart failure chronicity: acute on chronic Qualified Code(s): I50.9 - Heart failure, unspecified - Discharge Information - My Orders Last 24 Hours: My Active Orders 07/04/17 10:04 EKG Documentation Completion [RC] STAT Oxygen Therapy [RC] ASDIRECTED Sodium Chloride 0.9% [Saline Flush] 10 ml FLUSH ASDIRECTED PRN Peripheral IV Insertion Adult [OM.PC] Stat 07/04/17 10:05 Peripheral IV Care [RC] . DIRECTED CULTURE BLOOD [BC] Stat CULTURE BLOOD [BC] Stat Blood Culture x2 Reflex Set [OM.PC] Stat 07/04/17 10:10 Urinary Catheter Assessment [RC] ASDIRECTED 07/04/17 10:15 Yates Catheter Insertion [Insert Urinary Catheter] [OM.PC] Q24H Sodium Chloride 0.9% [Normal Saline] 1,000 ml IV ASDIRECTED 07/04/17 10:19 RT Aerosol Therapy [RC] ASDIRECTED 07/04/17 12:35 CULTURE ANAEROBIC + SMEAR [RM] Stat 07/04/17 12:39 RT Aerosol Therapy [RC] ASDIRECTED 07/04/17 13:35 Vancomycin [Vancocin] 1 gm Sodium Chloride 0.9% [Normal Saline] 250 ml IV ONETIME - Assessment/Plan Last 24 Hours: My Active Orders 07/04/17 10:04 EKG Documentation Completion [RC] STAT Oxygen Therapy [RC] ASDIRECTED Sodium Chloride 0.9% [Saline Flush] 10 ml FLUSH ASDIRECTED PRN Peripheral IV Insertion Adult [OM.PC] Stat 07/04/17 10:05 Peripheral IV Care [RC] . DIRECTED CULTURE BLOOD [BC] Stat CULTURE BLOOD [BC] Stat Blood Culture x2 Reflex Set [OM.PC] Stat 07/04/17 10:10 Urinary Catheter Assessment [RC] ASDIRECTED 07/04/17 10:15 Yates Catheter Insertion [Insert Urinary Catheter] [OM.PC] Q24H Sodium Chloride 0.9% [Normal Saline] 1,000 ml IV ASDIRECTED 07/04/17 10:19 RT Aerosol Therapy [RC] ASDIRECTED 07/04/17 12:35 CULTURE ANAEROBIC + SMEAR [RM] Stat 07/04/17 12:39 RT Aerosol Therapy [RC] ASDIRECTED 07/04/17 13:35 Vancomycin [Vancocin] 1 gm Sodium Chloride 0.9% [Normal Saline] 250 ml IV ONETIME
[2017-07-04] MEDS ORDERED: Sodium Chloride 0.9% 10 ML Syringe FLUSH PRN (10:04)
[2017-07-04] MEDS ORDERED: Sodium Chloride 0.9% 1,000 ML IV SCH (10:15)
[2017-07-04] MEDS ORDERED: Albuterol/Ipratropium 3.0-0.5 MG/3 ML Neb Soln NEB ONE ×3 (10:18→17:21)
[2017-07-04] MEDS ORDERED: Furosemide 40 MG/4 ML VIAL IVPUSH ONE (10:19)
--- NOTE | 2017-07-04 11:09 | CR ---
Chest: Portable view of the chest is obtained. Comparison: No previous study. Heart size and mediastinum are within normal limits for portable technique. Lung markings are slightly increased which are most likely chronic but difficult to exclude mild pulmonary vascular congestion. Lungs are hyperinflated compatible with emphysematous change. Bony structures are osteopenic. Impression: 1. Probable emphysematous change. 2. Other findings which are likely incidental as described above. Diagnostic code #3
[2017-07-04] MEDS ORDERED: Levofloxacin/Dextrose 5%-Water 750 MG in Premix Bag 1 BAG IV ONE (12:01)
--- NOTE | 2017-07-04 15:50 | PCM.HP ---
H&P History of Present Illness - General Date of Service: 07/04/17 Admit Problem/Dx: Admission Diagnosis/Problem Admission Diagnosis/Problem CHF, Congestive heart failure Source of Information: Patient, Family, Old Records, Provider, RN, RN Notes Reviewed History Limitations: Reports: Other (She does have some mild dificulty with communication due to recent stroke and recent intubation. ) - History of Present Illness Initial Comments - Free Text/Narative: Sheila Dickerson is a 71 yo female who presented to our ED today from a local snf with shortness of breath via ambulance. She was in her ED approximately 18 days ago after suffering a dense stroke with complete left hemiparesis. 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 She underwent bilateral endarterectomy. While recovering her kidneys failed and she required bedside dialysis at least 3 separate occasions. She's now been off dialysis for 3 days. She had previously had a central line placed in her left subclavian and a dialysis line placed right from oral artery and vein. She also had a Chase catheter in place up until 3 days prior. In the meantime she has become more dyspneic over the past 48 hours, this was particularly bad yesterday. She noted increased edema of the lower extremities and difficulty breathing this morning. O2 sats are found to be in the mid 80s. Denies a cough. It is noted by the ED provider that she was intubated twice and there were some concerns over a cord damage. She also has a speech deficit due to the stroke. She's been for the most part bed ridden and is unable to walk due to left-sided paresis. She does have very minimal spontaneous movement of her left arm and hand. She did receive physical therapy, occupational therapy, and speech therapy while in the hospital. It is noted by the ED provider that there appears to be some reluctance on the patient's part to eat or drink. In the ED vital signs were obtained. Her temperature is 37.2 Celsius. Pulse is 103 and tachycardic. Respirations 18. Blood pressure is elevated at 161/ 58. Pulse ox 97%. EKG was obtained in the ED and interpreted by the ED provider as a sinus tachycardia rate of 102 bpm. Normal axis with enlarged P waves. Left ventricular hypertrophy is noted as well as mildly decreased voltage in limb leads. It is a borderline EKG. Labs are obtained: 30 mL elevated at 12.43. Hemoglobin low at 9.2. Hematocrit low at 29.3. She is normocytic. Fluids are very high at 633,000. Neutrophils are elevated at 73% there's 5% band neutrophils noted PT is normal at 11.2. INR 1.03. Sodium was good at 137. Potassium 3.7. Chloride 100. Carbon dioxide 26. Anion gap was good at 14.7. BUN is slightly high at 21. Creatinine is high at 1.3. EGFR is 40. Glucose is 1:30. Lactic acid 0.7. Calcium 9.7. Magnesium is low at 1.3. Total bilirubin 0.7. Liver enzymes looked good with AST at 31 ALT at 48 and alkaline phosphatase at 100. CK-MB is 2.1. Troponin less than 0.017. CRP is elevated at 7.0. BNP is elevated at 928. Protein is 7.3 albumin is low at 2.7. UA is negative, however trace occult blood is noted, likely from catheterization prior to arrival at the snf. It is reported she is refusing to eat or drink very much. Tongue is dry and coated. Rectal temperature was obtained and found to be 99F portal chest x-ray was obtained and is interpreted by Dr. Barron as "1. Probable emphysematous change. 2. Other findings which are likely incidental as described above." Bony structures are noted to be osteopenic. There was some concern from family that the area with a dialysis catheter was placed was contaminated with stool on multiple occasions. Levaquin 750 mg IV was given in the ED. She does have a noted allergy to cefaclor and thus Rocephin was not given. 1 g IV they Comycin was given to cover MRSA prior to her being brought to the medical floor. Blood cultures were obtained. Wound cultures from her right groin were also obtained in the ED however the provider notes that this did not appear to be infected. She was given multiple DuoNeb treatments which appear to help. She was also given 40 mg of Lasix. She subsequently admitted to the medical floor on telemetry. She carries a history of heart murmur, HLD, HTN, tachycardia, COPD, urinary retention, osteoporosis, CVA with left-sided hemiparesis, and anemia. She is a former pack or more cigarettes smoker for 55 years. She is currently on nicotine patch 21 mg strength. She did quit last month at the beginning of her CVA episode. Code status: Full Code. Her PCP is Dr. Carter at [facility] in [place]. - Related Data Allergies/Adverse Reactions: Allergies Allergy/AdvReac Type Severity Reaction Status Date / Time cefaclor Allergy Cannot Verified 07/04/17 09:38 Remember Home Medications: Home Meds ALPRAZolam [Xanax] 0.25 mg PO TID 07/04/17 [History] Acetaminophen [Acetaminophen Extra Strength] 2 tab PO Q6H PRN 07/04/17 [History] Aspirin 81 mg PO DAILY 07/04/17 [History] Bisacodyl [Dulcolax] 10 mg RECTAL DAILY PRN 07/04/17 [History] Docusate Sodium/Sennosides [Senna Plus] 1 tab PO BID 07/04/17 [History] Docusate Sodium/Sennosides [Senna Plus] 1 tab PO DAILY PRN 07/04/17 [History] Fluticasone/Vilanterol [Breo Ellipta 100-25 MCG Inhalation Kit] 1 puff IH DAILY 07/04/17 [History] Furosemide [Lasix] 20 mg PO DAILY 07/04/17 [History] Ipratropium/Albuterol Sulfate [Iprat-Albut 0.5-3(2.5) mg/3 ml] 3 ml IH QID 07/04 [History] Levalbuterol Tartrate [Xopenex Hfa] 2 puff INH QID PRN 07/04/17 [History] Losartan/Hydrochlorothiazide [Hyzaar 100-12.5 Tablet] 1 tab PO DAILY 07/04/17 [ History] Multivitamin with Minerals [Multiple Vitamin] 1 tab PO DAILY 07/04/17 [History] Nicotine [Nicotine Patch] 1 patch TD DAILY 07/04/17 [History] Pantoprazole [ProTONIX] 40 mg PO DAILY 07/04/17 [History] Ticagrelor [Brilinta] 90 mg PO BID 07/04/17 [History] Triamcinolone Acetonide [Triamcinolone Acetonide 0.1% Crm] 1 applic TRDERM DAILY PRN 07/04/17 [History] atorvaSTATin [Lipitor] 40 mg PO DAILY 07/04/17 [History] Past Medical History Cardiovascular History: Reports: Heart Murmur, High Cholesterol, Hypertension, Other (See Below) Other Cardiovascular History: tachycardia Respiratory History: Reports: COPD Gastrointestinal History: Reports: None Genitourinary History: Reports: Retention, Urinary 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 History: Reports: None Musculoskeletal History: Reports: Osteoporosis Neurological History: Reports: CVA Psychiatric History: Reports: None Endocrine/Metabolic History: Reports: None Hematologic History: Reports: Anemia Immunologic History: Reports: None Oncologic (Cancer) History: Reports: None Dermatologic History: Reports: None - Past Surgical History HEENT Surgical History: Reports: Adenoidectomy, Tonsillectomy GI Surgical History: Reports: None Female Surgical History: Reports: Tubal Ligation Endocrine Surgical History: Reports: None Neurological Surgical History: Reports: None Social & Family History - Tobacco Use Smoking Status *Q: Former Smoker Years of Tobacco use: 55 Packs/Tins Daily: 1 Used Tobacco, but Quit: Yes Month Tobacco Last Used: 06/2017 Second Hand Smoke Exposure: No - Caffeine Use Caffeine Use: Reports: None - Recreational Drug Use Recreational Drug Use: No Drug Use in Last 12 Months: No - Living Situation & Occupation Living situation: Reports: , Extended Care Facility (Entered snf on July 01.) Occupation: Retired H&P Review of Systems - Review of Systems: Review Of Systems: See Below General: Reports: Fever, Chills, Malaise, Weakness, Decreased Appetite HEENT: Reports: No Symptoms. Denies: Ear Pain, Eye Pain, Glasses, Headaches, Post Nasal Drip, Sore Throat, Vertigo Pulmonary: Reports: Cough, Sputum. Denies: Shortness of Breath, Wheezing, Pleuritic Chest Pain Cardiovascular: Reports: Edema. Denies: Chest Pain, Palpitations, Dyspnea on Exertion, Lightheadedness Gastrointestinal: Reports: No Symptoms. Denies: Abdominal Pain, Black Stool, Constipation, Diarrhea, Nausea, Vomiting Genitourinary: Reports: No Symptoms. Denies: Dysuria, Frequency, Burning, Pain , Urgency Musculoskeletal: Reports: No Symptoms, Other (Left sided weakness due to recent stroke ) Skin: Reports: No Symptoms Psychiatric: Reports: Depression, Anxiety. Denies: Confusion Neurological: Reports: Pre-Existing Deficit (left sided weakness due to recent stroke ), Trouble Speaking, Difficulty Walking, Weakness, Change in Speech, Gait Disturbance. Denies: Confusion, Dizziness, Headache, Numbness, Seizure, Tingling Hematologic/Lymphatic: Reports: Anemia (Hx/o). Denies: Easy Bleeding, Easy Bruising Immunologic: Reports: No Symptoms Exam - Exam Exam: See Below - Vital Signs Vital Signs: Last Vital Signs Temp 99.0 F 07/04/17 09:45 Pulse 103 H 07/04/17 09:33 Resp 18 07/04/17 09:33 BP 161/58 H 07/04/17 09:33 Pulse Ox 97 07/04/17 12:54 - Exam Quality Assessment: Supplemental Oxygen, Urinary Catheter, DVT Prophylaxis General: Alert, Cooperative, Other (repeating questions multiple times.). No: Mild Distress HEENT: Conjunctiva Clear, EACs Clear, EOMI, Hearing Intact, Mucosa Moist & White Water , Nares Patent, Normal Nasal Septum, Posterior Pharynx Clear, Other (tongue is dry ), PERRLA Neck: Supple, Trachea Midline. No: JVD, Thyromegaly Lungs: Decreased Breath Sounds, Stridor. No: Crackles, Rales, Rhonchi, Rub, Wheezing Cardiovascular: Irregular Rhythm, Tachycardia GI/Abdominal Exam: Normal Bowel Sounds, Soft, Non-Tender, No Organomegaly, No Distention, No Abnormal Bruit, No Mass, Pelvis Stable (Female) Exam: Other (Chase catheter in place with straw color output. ) Rectal (Female) Exam: Deferred Back Exam: Normal Inspection, Decreased Range of Motion. No: CVA Tenderness (L) , CVA Tenderness (R) Extremities: Non-Tender, Pedal Edema (3+ up to knees bilaterally. ), Other ( Left leg ecchymosis - states this is from fall prior to stroke. Bandage over left groin femoral artery/vein region due to prior dialysis catheter. No drainage, erythema, or warmth noted.) Peripheral Pulses: 1+: Radial (L), Radial (R), Posterior Tibial (L), Posterior Tibial (R), Dorsalis Pedis (L), Dorsalis Pedis (R) Skin: Warm, Dry, Intact Neurological: Cranial Nerves Intact (Grossly ), Abnormal Gait (she does not walk ). No: Strength Equal Bilateral (left sided weakness - baseline since stroke ) , Normal Speech (some difficulty with speach - reported since stroke. ) Neuro Extensive - Mental Status: Alert, Normal Mood/Affect, Normal Cognition Neuro Extensive - Motor, Sensory, Reflexes: CN II-XII Intact (grossly ), Abnormal Gait, Other (left sided weakness -at baseline ). No: Facial palsy (L) , Facial Palsy (R) Psychiatric: Alert, Anxious - Patient Data Result Diagrams: 07/04/17 10:35 07/04/17 10:35 *Q Meaningful Use (ADM) - VTE *Q VTE Criteria *Q: - Stroke *Q Stroke Criteria *Q: - AMI *Q AMI Criteria *Q: - Problem List (1) Congestive heart failure SNOMED Code(s): 98488349 ICD Code: I50.9 - HEART FAILURE, UNSPECIFIED Status: Acute Priority: High Current Visit: Yes Qualifiers: Congestive heart failure type: unspecified congestive heart failure type Congestive heart failure chronicity: acute on chronic Qualified Code(s): I50.9 - Heart failure, unspecified (2) Febrile illness, acute SNOMED Code(s): 939433829 ICD Code: R50.9 - FEVER, UNSPECIFIED Status: Acute Current Visit: Yes (3) Hemiparesis affecting left side as late effect of cerebrovascular accident SNOMED Code(s): 686766233 ICD Code: I69.354 - HEMIPLGA FOLLOWING CEREBRAL INFRC AFFECTING LEFT NONDOM SIDE Status: Chronic Priority: Low Current Visit: Yes (4) Anemia SNOMED Code(s): 326168778 ICD Code: D64.9 - ANEMIA, UNSPECIFIED Status: Chronic Priority: Low Current Visit: Yes Qualifiers: Anemia type: unspecified type Qualified Code(s): D64.9 - Anemia, unspecified (5) Anxiety SNOMED Code(s): 74312596 ICD Code: F41.9 - ANXIETY DISORDER, UNSPECIFIED Status: Chronic Priority : Medium Current Visit: Yes (6) Tachycardia SNOMED Code(s): 7197158 ICD Code: R00.0 - TACHYCARDIA, UNSPECIFIED Status: Chronic Priority: Low Current Visit: Yes (7) HLD (hyperlipidemia) SNOMED Code(s): 57481148 ICD Code: E78.5 - HYPERLIPIDEMIA, UNSPECIFIED Status: Chronic Priority: Low Current Visit: No Qualifiers: Hyperlipidemia type: unspecified Qualified Code(s): E78.5 - Hyperlipidemia , unspecified (8) HTN (hypertension) SNOMED Code(s): 39843697 ICD Code: I10 - ESSENTIAL (PRIMARY) HYPERTENSION Status: Chronic Priority : Low Current Visit: No Qualifiers: Hypertension type: unspecified Qualified Code(s): I10 - Essential (primary ) hypertension (9) COPD (chronic obstructive pulmonary disease) SNOMED Code(s): 74644182 ICD Code: J44.9 - CHRONIC OBSTRUCTIVE PULMONARY DISEASE, UNSPECIFIED Status : Chronic Priority: Low Current Visit: No (10) History of CVA with residual deficit SNOMED Code(s): 695369351 ICD Code: I69.30 - UNSPECIFIED SEQUELAE OF CEREBRAL INFARCTION Status: Chronic Priority: Low Current Visit: Yes (11) Hypomagnesemia SNOMED Code(s): 706577253 ICD Code: E83.42 - HYPOMAGNESEMIA Status: Acute Priority: High Current Visit: Yes (12) Failure to thrive in adult SNOMED Code(s): 198150618 ICD Code: R62.7 - ADULT FAILURE TO THRIVE Status: Acute Priority: High Current Visit: Yes (13) Thrombocytosis SNOMED Code(s): 9858352 ICD Code: D47.3 - ESSENTIAL (HEMORRHAGIC) THROMBOCYTHEMIA Status: Acute Priority: Low Current Visit: Yes Problem List Initiated/Reviewed/Updated: Yes Orders Last 24hrs: Medication Orders Sodium Chloride (Normal Saline) 1,000 mls @ 100 mls/hr IV ASDIRECTED MATT Last Admin: 07/04/17 10:45 Dose: 100 mls/hr Sodium Chloride (Saline Flush) 10 ml FLUSH ASDIRECTED PRN PRN Reason: Keep Vein Open Last Admin: 07/04/17 10:45 Dose: 10 ml Assessment/Plan Comment:: I/P: Acute: CHF exacerbation -Acute on chronic -Increased swelling in legs (3+) - Normally just feet but it has been getting progressively worse and is now up to knees -Was started on 20 mg Lasix daily after discharge for CVA -Family reports pt. was overloaded on fluid while in hospital and had to be aggressively diuresed -Echo was recently obtained at [facility] - attempt to obtain -BNP 928 -Took normal 20 mg of lasix today, was given 40 mg more in ambulance and 40 mg in ED. -Chase placed at snf today due to retention - good output now -Diuresis using caution as patient reportedly went into renal failure in [place] and was placed on bedside Dialysis. -Low sodium diet -Fluid restriction Acute febrile illness -Low grade fever in ED and on floor -UA negative (trace occult blood, RBC 5-10, likely from chase placement) -WBC 12.43 -Neutrophils 73% -Band neutrophils 5% -Lactic acid 0.7 -CRP 7.0 -CXR on 07/04/[address] Barron -1. Probable emphysematous change -2. Other findings which are likely incidental as described above -Pt. had some stridor, was recently intubated twice in ED; CT soft tissue neck obtained 07/04/17 - Incidental findings with nothing acute noted -Nebulizers as ordered -Influenza A&B ordered -Strep ordered -Mycoplasma pneumonia ordered - negative -Can consider respiratory panel -Tylenol as needed for fever -Continue to monitor Anxiety -On xanax 0.25 mg TID, started by PCP -Chemo consult ordered -Ativan PRN as ordered Hypomagnesemia -Mg 1.3 -2 gm IV supplementation ordered x2 -Continue to monitor Failure to thrive as an adult -Family reports pt. returned from [place] and was placed in [facility] on -Family reports pt. has been primarily sedentary prior to stroke and rapidly deteriorating -There are concerns over patients nutritional status from family and medical providers -Albumin 2.7 -Anion gap 14.7 -Pured diet per SNF notes -Nursing reports no difficulty in drinking liquids. Normal liquid thickness per SNF notes. -Swallow evaluation -Dietary consult Anemia -Hgb 9.2 -Hct 29.3 -Unknown baseline but has documented anemia prior -Consider workup, will await prior hospital notes Thrombocytosis -Platelets 633,000 -1+ polychromasia -1+ Anisocytosis -Consider further workup, will await prior hospital notes Renal insufficiency -Unsure of baseline - awaiting records from [facility] -Family reports pt. went into complete renal failure after CT contrast in [place] and was on Bedside dialysis -BUN 21 -Creatinine 1.3 -eGFR 40 -Fluids with caution as worsening CHF -Continue to monitor Chronic: Anemia - as above Hx/o CVA with left sided deficit - swallow study ordered, stable Tachycardia - stable HLD HTN - Home medications and PRN as ordered COPD - Home medications as ordered Osteoperosis Plan: Admit to medical floor on telemetry CM/SW for discharge planning PT/OT Other orders as indicated above Routine AM labs GI prophylaxis - Home protonix DVT/PE prophylaxis - SCDs
[2017-07-04] MEDS ORDERED: Albuterol/Ipratropium 3.0-0.5 MG/3 ML Neb Soln ONE (17:19)
[2017-07-04] MEDS ORDERED: Bisacodyl 10 MG Supp RECTAL PRN (17:29)
[2017-07-04] MEDS ORDERED: Triamcinolone Acetonide 0.1% Crm 15 GM Tube TOP PRN (17:29)
[2017-07-04] MEDS ORDERED: Ondansetron 4 MG Tab.DIS PO PRN (17:35)
[2017-07-04] MEDS ORDERED: Ondansetron 4 MG/2 ML SDV IV PRN (17:35)
[2017-07-04] MEDS ORDERED: Acetaminophen/HYDROcodone 325-5 MG Tab PO PRN (17:35)
[2017-07-04] MEDS ORDERED: Temazepam 7.5 MG Cap PO PRN (17:35)
[2017-07-04] MEDS ORDERED: LORazepam 2 MG/ML MDV IVPUSH PRN (17:45)
[2017-07-04] MEDS ORDERED: Non-Formulary Medication 1 Each (Levalbuterol Tartrate [Xopenex Hfa] 2 PUFF) INH PRN (18:38)
--- NOTE | 2017-07-04 19:12 | CT ---
CT neck Technique: Multiple axial sections through the neck were obtained. Intravenous contrast was not utilized. This limits details of the exam. Findings: Slight parenchymal density is noted within the right upper lung most likely due to scarring. Calcified granuloma is seen within the left upper lung. Parotid and submandibular salivary glands show no discrete abnormality. Atherosclerotic calcification is seen diffusely within the carotid arteries. Visualized sinuses are clear. Prevertebral soft tissues are normal. Epiglottis is normal. No subglottic abnormality is appreciated. No adenopathy or mass is seen within the neck. Bone window settings were reviewed which show mild degenerative change scattered within the cervical spine. Impression: 1. Findings which are felt to be incidental as noted above. Nothing acute is seen. Nothing is identified to explain the patient's stridor. Diagnostic code #2
[2017-07-04] MEDS: Magnesium Sulfate/Water 2 GM in Premix Bag 1 BAG IV SCH ×2 (19:50→22:26)
[2017-07-04] MEDS ORDERED: hydrALAZINE 10 MG Tab PO PRN (20:03)
[2017-07-04] MEDS ORDERED: Metoprolol Tartrate 5 MG/5 ML SDV IVPUSH PRN (20:03)
[2017-07-04] MEDS: Albuterol/Ipratropium 3.0-0.5 MG/3 ML Neb Soln NEB SCH (20:25)
[2017-07-04] MEDS: Non-Formulary Medication 1 Each (Ticagrelor 90 MG) PO SCH (20:29)
[2017-07-04] MEDS: ALPRAZolam 0.25 MG Tab PO SCH (20:32)
[2017-07-04] MEDS ORDERED: Albuterol/Ipratropium 3.0-0.5 MG/3 ML Neb Soln NEB SCH (21:00)
[2017-07-04] MEDS ORDERED: Non-Formulary Medication 1 Each (Levalbuterol Tartrate [Xopenex Hfa] 2 PUFF) IH SCH (21:00)
[2017-07-04] MEDS ORDERED: Phenol 1.4% Oral Spray 20 ML Bottle MUCMEM PRN (22:22)
[2017-07-05] MEDS: Sodium Chloride 0.9% 1,000 ML IV SCH (05:02)
[2017-07-05] MEDS: Albuterol/Ipratropium 3.0-0.5 MG/3 ML Neb Soln NEB SCH ×4 (05:24→20:41)
[2017-07-05] MEDS: Pantoprazole 40 MG Tab.CR PO SCH (07:42)
[2017-07-05] MEDS ORDERED: LEVALBUTEROL TARTRATE IH SCH (09:00)
[2017-07-05] MEDS ORDERED: Furosemide 40 MG/4 ML VIAL IVPUSH SCH (09:00)
[2017-07-05] MEDS ORDERED: Pantoprazole 40 MG Tab.CR PO SCH (09:00)
[2017-07-05] MEDS ORDERED: Non-Formulary Medication 1 Each (Fluticasone/Vilanterol 1 PUFF) IH SCH (09:00)
[2017-07-05] MEDS ORDERED: LEVALBUTEROL TARTRATE INH SCH (09:00)
[2017-07-05] MEDS ORDERED: LEVALBUTEROL TARTRATE INH PRN (09:15)
[2017-07-05] MEDS: FLUTICASONE INH SCH (09:16)
[2017-07-05] MEDS: VILANTEROL INH SCH (09:16)
[2017-07-05] MEDS: Rosuvastatin 10 MG Tab PO SCH (09:30)
[2017-07-05] MEDS: ALPRAZolam 0.25 MG Tab PO SCH ×3 (09:30→21:17)
[2017-07-05] MEDS: Aspirin 81 MG Tab.Chew PO SCH (09:30)
[2017-07-05] MEDS: Nicotine 7 MG/24 Hr Patch TRDERM SCH (09:31)
[2017-07-05] MEDS: Non-Formulary Medication 1 Each (Ticagrelor 90 MG) PO SCH ×2 (09:57→21:17)
--- NOTE | 2017-07-05 11:25 | PCM.PN ---
- General Info Date of Service: 07/05/17 Subjective Update: sob is getting better doesn't look anxious Functional Status: Reports: Pain Controlled - Patient Data Vitals - Most Recent: Last Vital Signs Temp 99.1 F 07/05/17 07:30 Pulse 98 07/05/17 07:31 Resp 22 H 07/05/17 07:30 BP 148/44 H 07/05/17 07:30 Pulse Ox 91 L 07/05/17 09:17 Weight - Most Recent: 156 lb 6.4 oz I&O - Last 24 Hours: Intake & Output 07/04/17 07/05/17 07/05/17 22:59 06:59 14:59 Intake Total 100 747 Output Total 120 1250 Balance -20 -503 Lab Results Last 24 Hours: Laboratory Results - last 24 hr 07/04/17 07/04/17 07/05/17 Range/Units 17:47 20:12 07:22 WBC 9.97 (3.98-10.04) K/mm3 RBC 3.04 L (3.98-5.22) M/mm3 Hgb 9.0 L (11.2-15.7) gm/L Hct 28.5 L (34.1-44.9) % MCV 93.8 (79.4-94.8) fl MCH 29.6 (25.6-32.2) pg MCHC 31.6 L (32.2-35.5) g/dl RDW Std Deviation 56.8 H (36.4-46.3) fL Plt Count 548 H (182-369) K/mm3 MPV 8.5 L (9.4-12.3) fl Neut % (Auto) 78.9 H (34.0-71.1) % Lymph % (Auto) 8.5 L (19.3-51.7) % [place] % (Auto) 8.1 (4.7-12.5) % Eos % (Auto) 2.6 (0.7-5.8) Baso % (Auto) 0.3 (0.1-1.2) % Neut # (Auto) 7.86 H (1.56-6.13) K/mm3 Lymph # (Auto) 0.85 L (1.18-3.74) K/mm3 [place] # (Auto) 0.81 H (0.24-0.36) K/mm3 Eos # (Auto) 0.26 (0.04-0.36) K/mm3 Baso # (Auto) 0.03 (0.01-0.08) K/mm3 Manual Slide Review Abnormal smear Sodium (136-145) mEq/L Potassium (3.5-5.1) mEq/L Chloride (98-107) mEq/L Carbon Dioxide (21-32) mEq/L Anion Gap (5-15) BUN (7-18) mg/dL Creatinine (0.55-1.02) mg/dL Est Cr Clr Drug Dosing mL/min Estimated GFR (MDRD) (>60) mL/min BUN/Creatinine Ratio (14-18) Glucose (83-115) mg/dL Calcium (8.5-10.1) mg/dL Magnesium (1.8-2.4) mg/dl C-Reactive Protein (<1.0) mg/dL NT-Pro-B Natriuret Pep (0-125) pg/mL Mycoplasma pneumon IgM Negative (NEGATIVE) MRSA (PCR) Negative 07/05/17 Range/Units 07:22 WBC (3.98-10.04) K/mm3 RBC (3.98-5.22) M/mm3 Hgb (11.2-15.7) gm/L Hct (34.1-44.9) % MCV (79.4-94.8) fl MCH (25.6-32.2) pg MCHC (32.2-35.5) g/dl RDW Std Deviation (36.4-46.3) fL Plt Count (182-369) K/mm3 MPV (9.4-12.3) fl Neut % (Auto) (34.0-71.1) % Lymph % (Auto) (19.3-51.7) % [place] % (Auto) (4.7-12.5) % Eos % (Auto) (0.7-5.8) Baso % (Auto) (0.1-1.2) % Neut # (Auto) (1.56-6.13) K/mm3 Lymph # (Auto) (1.18-3.74) K/mm3 [place] # (Auto) (0.24-0.36) K/mm3 Eos # (Auto) (0.04-0.36) K/mm3 Baso # (Auto) (0.01-0.08) K/mm3 Manual Slide Review Sodium 139 (136-145) mEq/L Potassium 3.8 (3.5-5.1) mEq/L Chloride 103 (98-107) mEq/L Carbon Dioxide 25 (21-32) mEq/L Anion Gap 14.8 (5-15) BUN 21 H (7-18) mg/dL Creatinine 1.6 H (0.55-1.02) mg/dL Est Cr Clr Drug Dosing 25.90 mL/min Estimated GFR (MDRD) 32 (>60) mL/min BUN/Creatinine Ratio 13.1 L (14-18) Glucose 124 H (83-115) mg/dL Calcium 9.2 (8.5-10.1) mg/dL Magnesium 2.4 (1.8-2.4) mg/dl C-Reactive Protein 6.9 H* (<1.0) mg/dL NT-Pro-B Natriuret Pep 475 H (0-125) pg/mL Mycoplasma pneumon IgM (NEGATIVE) MRSA (PCR) [place] Results Last 24 Hours: Microbiology 07/04/17 20:12 Influenza Type A Antigen Screen - Final Nasopharyngeal Swab - Nare, Unspecified NEGATIVE INFLUENZA A VIRUS AG Influenza Type B Antigen Screen - Final NEGATIVE INFLUENZA B VIRUS AG Med Orders - Current: Current Medications Acetaminophen (Tylenol) 650 mg PO Q4H PRN PRN Reason: Pain (Mild 1-3)/fever Hydrocodone Bitart/Acetaminophen ([place] 325-5 Mg) 1 tab PO Q4H PRN PRN Reason: Pain (moderate 4-6) Albuterol/Ipratropium (Duoneb 3.0-0.5 Mg/3 Ml) 3 ml NEB QIDRT [facility] Last Admin: 07/05/17 09:15 Dose: 3 ml Alprazolam (Xanax) 0.25 mg PO TID [facility] Last Admin: 07/05/17 09:30 Dose: 0.25 mg Aspirin (Aspirin) 81 mg PO DAILY [facility] Last Admin: 07/05/17 09:30 Dose: 81 mg Bisacodyl (Dulcolax) 10 mg RECTAL DAILY PRN PRN Reason: Constipation Furosemide (Lasix) 20 mg IVPUSH BID [facility] Hydralazine HCl (Apresoline) 10 mg PO Q6H PRN PRN Reason: Hypertension Vancomycin HCl 1 gm/ Sodium (Chloride) 250 mls @ 250 mls/hr IV Q24H [facility] Sodium Chloride (Normal Saline) 1,000 mls @ 50 mls/hr IV ASDIRECTED [facility] Last Admin: 07/05/17 05:02 Dose: 50 mls/hr Levalbuterol HCl (Xopenex) 1.25 mg NEB Q6HRRT PRN PRN Reason: Shortness of Breath Lorazepam (Ativan) 0.5 mg IVPUSH Q6H PRN PRN Reason: Anxiety Metoprolol Tartrate (Lopressor) 5 mg IVPUSH Q4H PRN PRN Reason: Tachycardia Miscellaneous Information (Remove Patch) 1 ea TRDERM DAILY [facility] Nicotine (Habitrol) 7 mg TRDERM DAILY [facility] Last Admin: 07/05/17 09:31 Dose: 7 mg Non-Formulary Medication (Ticagrelor) 90 mg PO BID [facility] Last Admin: 07/05/17 09:57 Dose: Not Given Ondansetron HCl (Zofran Odt) 4 mg PO Q6H PRN PRN Reason: nausea, able to take PO Ondansetron HCl (Zofran) 4 mg IV Q6H PRN PRN Reason: Nausea/Vomiting Pantoprazole Sodium (Protonix) 40 mg PO DAILY@0700 [facility] Last Admin: 07/05/17 07:42 Dose: 40 mg Fluticasone/Vilanterol [Breo Ellipta] 1 Puff 0 each INH DAILY [facility] Last Admin: 07/05/17 09:16 Dose: 1 each Levalbuterol Tartrate [Xopenex Hfa] 2 Puff 0 each INH QID PRN PRN Reason: shortness of breath Phenol/Menthol (Chloraseptic) 0 ml MUCMEM Q4HR PRN PRN Reason: Sore Throat Rosuvastatin Calcium (Crestor) 10 mg PO DAILY [facility] Last Admin: 07/05/17 09:30 Dose: 10 mg Senna/Docusate Sodium (Senna Plus) 1 tab PO BID [facility] Last Admin: 07/05/17 09:30 Dose: 1 tab Senna/Docusate Sodium (Senna Plus) 1 tab PO DAILY PRN PRN Reason: Constipation Sodium Chloride (Saline Flush) 10 ml FLUSH ASDIRECTED PRN PRN Reason: Keep Vein Open Last Admin: 07/04/17 10:45 Dose: 10 ml Temazepam (Restoril) 7.5 mg PO BEDTIME PRN PRN Reason: Sleep Triamcinolone Acetonide (Triamcinolone Acetonide 0.1% Crm) 0 gm TOP DAILY PRN PRN Reason: Rash Vancomycin HCl (Pharmacy To Dose - Vancomycin) 1 dose .XX ASDIRECTED [facility] Discontinued Medications Albuterol/Ipratropium (Duoneb 3.0-0.5 Mg/3 Ml) 3 ml NEB ONETIME ONE Stop: 07/04/17 10:19 Last Admin: 07/04/17 10:49 Dose: 3 ml Albuterol/Ipratropium (Duoneb 3.0-0.5 Mg/3 Ml) 3 ml NEB ONETIME ONE Stop: 07/04/17 12:39 Last Admin: 07/04/17 12:53 Dose: 3 ml Albuterol/Ipratropium (Duoneb 3.0-0.5 Mg/3 Ml) 3 ml NEB ONETIME ONE Stop: 07/04/17 17:22 Last Admin: 07/04/17 17:27 Dose: 3 ml Albuterol/Ipratropium (Duoneb 3.0-0.5 Mg/3 Ml) Confirm Administered Dose 3 ml .ROUTE .STK-MED ONE Stop: 07/04/17 17:20 Last Admin: 07/04/17 17:27 Dose: Not Given Albuterol/Ipratropium (Duoneb 3.0-0.5 Mg/3 Ml) 3 ml NEB QID [facility] Furosemide (Lasix) 40 mg IVPUSH NOW ONE Stop: 07/04/17 10:20 Last Admin: 07/04/17 10:45 Dose: 40 mg Furosemide (Lasix) 40 mg IVPUSH BID [facility] Last Admin: 07/05/17 09:32 Dose: 40 mg Sodium Chloride (Normal Saline) 1,000 mls @ 100 mls/hr IV ASDIRECTED [facility] Last Admin: 07/04/17 10:45 Dose: 100 mls/hr Levofloxacin/Dextrose 750 mg/ (Premix) 150 mls @ 100 mls/hr IV ONETIME ONE Stop: 07/04/17 13:30 Last Admin: 12/04/17 12:09 Dose: 100 mls/hr Vancomycin HCl 1 gm/ Sodium (Chloride) 250 mls @ 250 mls/hr IV ONETIME ONE Stop: 07/04/17 14:34 Last Admin: 07/04/17 14:04 Dose: 250 mls/hr Magnesium Sulfate 2 gm/ Premix 50 mls @ 25 mls/hr IV Q1H MATT Stop: 07/04/17 19:44 Last Admin: 07/04/17 22:26 Dose: 25 mls/hr Non-Formulary Medication (Levalbuterol Tartrate [Xopenex Hfa]) 2 puff IH QID MATT Non-Formulary Medication (Fluticasone/Vilanterol) 1 puff IH DAILY MATT Non-Formulary Medication (Levalbuterol Tartrate [Xopenex Hfa]) 2 puff INH QID PRN PRN Reason: sob Levalbuterol Tartrate [Xopenex Hfa] 2 Puff 0 puff IH QID MATT Pantoprazole Sodium (Protonix) 40 mg PO DAILY MATT Levalbuterol Tartrate [Xopenex Hfa] 2 Puff 0 each INH QID MATT Last Admin: 07/05/17 09:58 Dose: Not Given - Exam General: Alert, Oriented HEENT: Pupils Equal, Pupils Reactive, EOMI, Mucous Membr. Moist/[place] Neck: Supple Lungs: Crackles Cardiovascular: Regular Rate, Regular Rhythm GI/Abdominal Exam: Normal Bowel Sounds, Soft, Non-Tender, No Organomegaly, No Distention, No Abnormal Bruit, No Mass, Pelvis Stable Extremities: Normal Inspection, Normal Range of Motion, Non-Tender, No Pedal Edema, Normal Capillary Refill Skin: Warm, Dry, Intact Wound/Incisions: Healing Well - Problem List Review Problem List Initiated/Reviewed/Updated: Yes - My Orders Last 24 Hours: My Active Orders 07/05/17 09:02 Echo Comp wo Cont [US] Routine 07/05/17 11:12 Furosemide [Lasix] 20 mg IVPUSH BID 07/05/17 14:00 Vancomycin [Vancocin] 1 gm Sodium Chloride 0.9% [Normal Saline] 250 ml IV Q24H 07/05/17 Lunch National Dysphagia Diet [DIET] 07/06/17 09:00 Remove Patch 1 ea TRDERM DAILY - Plan Plan:: I/P: Acute: CHF exacerbation -Acute on chronic -Increased swelling in legs (3+) - Normally just feet but it has been getting progressively worse and is now up to knees -Was started on 20 mg Lasix daily after discharge for CVA -Family reports pt. was overloaded on fluid while in hospital and had to be aggressively diuresed -Echo was recently obtained at [facility] in [place] - attempt to obtain -BNP 928 -Took normal 20 mg of lasix today, was given 40 mg more in ambulance and 40 mg in ED. -Chase placed at long-term today due to retention - good output now -Diuresis using caution as patient reportedly went into renal failure in [place] and was placed on bedside Dialysis. -Low sodium diet -Fluid restriction -06/05 her Cr went up slightly will decrease her lasix to 20 iv bid -Echo pending, waiting for old records Acute febrile illness -Low grade fever in ED and on floor -UA negative (trace occult blood, RBC 5-10, likely from chase placement) -WBC 12.43 -->resolved 06/05 -Neutrophils 73% -Band neutrophils 5% -Lactic acid 0.7 -CRP 7.0 -CXR on 07/04/[address] Barron -1. Probable emphysematous change -2. Other findings which are likely incidental as described above -Pt. had some stridor, was recently intubated twice in ED; CT soft tissue neck obtained 07/04/17 - Incidental findings with nothing acute noted -Nebulizers as ordered -Influenza A&B ordered -Strep ordered -Mycoplasma pneumonia ordered - negative -Can consider respiratory panel -Tylenol as needed for fever -Continue to monitor -currently on empiric vancomycin Anxiety -On xanax 0.25 mg TID, started by PCP -Chemo consult ordered, no further testing now -Ativan PRN as ordered Hypomagnesemia -Mg 1.3 -2 gm IV supplementation ordered x2 -Continue to monitor Failure to thrive as an adult -Family reports pt. returned from [place] and was placed in [facility] on -Family reports pt. has been primarily sedentary prior to stroke and rapidly deteriorating -There are concerns over patients nutritional status from family and medical providers -Albumin 2.7 -Anion gap 14.7 -Pured diet per SNF notes -Nursing reports no difficulty in drinking liquids. Normal liquid thickness per SNF notes. -Swallow evaluation -Dietary consult Thrombocytosis -Platelets 633,000 -1+ polychromasia -1+ Anisocytosis -Consider further workup, will await prior hospital notes Renal insufficiency, most likely CKD3 -Unsure of baseline - awaiting records from [facility] -Family reports pt. went into complete renal failure after CT contrast in [place] and was on Bedside dialysis -BUN 21 -Creatinine 1.3 -eGFR 40 -Fluids with caution as worsening CHF -Continue to monitor Chronic: Anemia Hx/o CVA with left sided deficit - swallow study ordered, stable HLD HTN - Home medications and PRN as ordered COPD - Home medications as ordered Osteoperosis HOSPITAL STAY MORE THAN 96H 2/2 ACUTE CHF
[2017-07-05] MEDS: Levalbuterol HCl 1.25 MG/3 ML Neb NEB PRN (11:34)
--- NOTE | 2017-07-05 11:55 | CONS ---
CONSULTING PHYSICIAN: Nik Mclain MD DATE OF CONSULTATION: 07/05/2017 IDENTIFICATION: The patient is a 71-year-old female who is admitted to the inpatient Med/Surg Unit at [facility] in [place], [place]. She is seen for psychiatric evaluation. CHIEF COMPLAINT: "I need to make sure I have enough moisturizer." HISTORY OF PRESENT ILLNESS: The patient is a 71-year-old female who is status post a stroke with left-sided hemiparesis from mid June of 2017. She was admitted from a local fci on 07/04/2017 secondary to complications with COPD and weakness. She is being assessed today for anxiety and depression. On interview, the patient is denying that she is depressed. She states "the biggest issue is getting humidified." She states that the 3 things that she needs are "comfort breathing and humidifier" and states that if the routines from the fci that she was receiving can be replicated on the inpatient medical unit, she anticipates that she will feel better. She is reporting anxiety, but states that again the anxiety is mostly derived from the fact that she is short of breath and she feels dried out. She states "I can sleep at night" and again reports that her discomfort is mainly during the daytime hours. She is denying depression. She reports no suicidal or homicidal ideation or any acute delusional or psychotic symptoms. PSYCHIATRIC MEDICATIONS: At presentation, Xanax 0.25 mg t.i.d. ALLERGIES: Cefaclor. PAST MEDICAL HISTORY: 1. Status post stroke, 06/16/2017, with left-sided hemiparesis. 2. History of severe COPD. REVIEW OF SYSTEMS: Aside from neuro and pulmonary, all other major organ systems are negative at this point in time for acute difficulties or complications. FAMILY PSYCHIATRIC AND CD HISTORY: None reported. PAST PSYCHIATRIC AND CD HISTORY: The patient reports a history of anxiety. Denies depression. States that she has taken Xanax in the past for the anxiety. SOCIAL HISTORY: The patient was born and raised in [place]. She and her did move away to [facility] for many years because her was employed at [employer]. They moved back to [place], living in [place], [place] since 1981. The patient has been only once. 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 She is [employer] in terms of her horace formation. MENTAL STATUS EXAMINATION: The patient is a 71-year-old white female who appears short of breath. The patient is cognitively oriented x2 to person and place, not today, but she does know the month and the year. There is no abnormal motor movements or tics observed. Gait and station are not observed. This patient is lying in bed during the interview. Her mood is anxious. Affect is consistent with stated mood and cooperative overall for the purposes of the inpatient consult. There is no behavioral or stated evidence of acute suicidal or homicidal ideation or acute delusional symptoms. Thought processes are significant for perseveration and rumination. There are no acute manic symptoms or loose associations evident. Judgment and insight appear unimpaired at this point in time. Motivation for help appears good. VITAL SIGNS: 142/40, 97, 20, and 99.1 degrees. IMPRESSION: [place] I: 1. Anxiety disorder, not otherwise specified, F41.9. 2. Rule out psychosis, not otherwise specified, F29. 3. Rule out major depressive disorder. [place] II: None. [place] III: 1. Status post stroke with left-sided hemiparesis. 2. Chronic obstructive pulmonary disease. [place] IV: Severe. [place]: 55. PLAN: 1. Would recommend primary inpatient medical treatment team, obtain information from the patient's fci regarding her cares and breathing treatments, and see if these cares and breathing treatments can be replicated on the medical unit by staff in Respiratory therapy to help the patient with her shortness of breath and dryness. 2. We will observe whether the cares that they can be replicated from fci to the unit will help relieve the patient's reported anxiety and we will hold off on any type of psychiatric intervention at this point with the hope that this will be the case as increasing the patient's Xanax at this point in time could further complicate her respiratory status and starting her on antipsychotic whether traditional or atypical status post stroke would be advisable to avoid if possible given the recency of the adverse neurologic events. 3. If the patient does fail to respond to the cares put in place in terms of having reduction of anxiety, we will also go back with primary inpatient medical treatment team and assess options for increasing the patient's current benzodiazepine therapy and/or initiate an atypical or typical antipsychotic medication at low dose. 4. Other medications as dosed and prescribed by the patient's primary inpatient medical treatment team. 5. We will continue to follow up with the patient on an as-needed basis while she remains on the inpatient medical unit. 6. We will follow up with the patient sooner if any complications in the interim. 7. Crisis plan is in place. VALDEZ /[id number]
[2017-07-05] MEDS: Acetaminophen 325 MG Tab PO PRN ×2 (13:51→21:56)
[2017-07-05] MEDS: Furosemide 20 MG/2 ML VIAL IVPUSH SCH (23:45)
[2017-07-06] MEDS: Sodium Chloride 0.9% 1,000 ML IV SCH (04:10)
[2017-07-06] MEDS: Albuterol/Ipratropium 3.0-0.5 MG/3 ML Neb Soln NEB SCH ×4 (05:40→20:21)
[2017-07-06] MEDS: Pantoprazole 40 MG Tab.CR PO SCH (06:57)
--- NOTE | 2017-07-06 09:09 | PCM.PN ---
- General Info Date of Service: 07/06/17 Subjective Update: c/o sore throat but sob resolved just feeling fatigued and asking for her Breakfast - Review of Systems General: Reports: No Symptoms HEENT: Reports: No Symptoms Pulmonary: Reports: No Symptoms Cardiovascular: Reports: No Symptoms Gastrointestinal: Reports: No Symptoms Genitourinary: Reports: No Symptoms Musculoskeletal: Reports: No Symptoms Skin: Reports: No Symptoms Neurological: Reports: No Symptoms Psychiatric: Reports: No Symptoms - Patient Data Vitals - Most Recent: Last Vital Signs Temp 98.2 F 07/06/17 04:14 Pulse 91 07/06/17 04:14 Resp 20 07/06/17 04:14 BP 134/46 L 07/06/17 04:14 Pulse Ox 94 L 07/06/17 05:40 Weight - Most Recent: 156 lb 3.2 oz I&O - Last 24 Hours: Intake & Output 07/05/17 07/06/17 07/06/17 22:59 06:59 14:59 Intake Total 1077 578 Output Total 1200 650 Balance -123 -72 Lab Results Last 24 Hours: Laboratory Results - last 24 hr 07/06/17 07/06/17 Range/Units 05:50 05:50 WBC 6.73 (3.98-10.04) K/mm3 RBC 2.59 L (3.98-5.22) M/mm3 Hgb 7.5 L (11.2-15.7) gm/L Hct 24.7 L (34.1-44.9) % MCV 95.4 H (79.4-94.8) fl MCH 29.0 (25.6-32.2) pg MCHC 30.4 L (32.2-35.5) g/dl RDW Std Deviation 58.0 H (36.4-46.3) fL Plt Count 517 H (182-369) K/mm3 MPV 8.5 L (9.4-12.3) fl Neut % (Auto) 65.8 (34.0-71.1) % Lymph % (Auto) 16.2 L (19.3-51.7) % [place] % (Auto) 11.6 (4.7-12.5) % Eos % (Auto) 4.5 (0.7-5.8) Baso % (Auto) 0.4 (0.1-1.2) % Neut # (Auto) 4.43 (1.56-6.13) K/mm3 Lymph # (Auto) 1.09 L (1.18-3.74) K/mm3 [place] # (Auto) 0.78 H (0.24-0.36) K/mm3 Eos # (Auto) 0.30 (0.04-0.36) K/mm3 Baso # (Auto) 0.03 (0.01-0.08) K/mm3 Manual Slide Review Abnormal smear Sodium 140 (136-145) mEq/L Potassium 3.8 (3.5-5.1) mEq/L Chloride 105 (98-107) mEq/L Carbon Dioxide 26 (21-32) mEq/L Anion Gap 12.8 (5-15) BUN 22 H (7-18) mg/dL Creatinine 1.5 H (0.55-1.02) mg/dL Est Cr Clr Drug Dosing 27.63 mL/min Estimated GFR (MDRD) 34 (>60) mL/min BUN/Creatinine Ratio 14.7 (14-18) Glucose 98 (83-115) mg/dL Calcium 8.9 (8.5-10.1) mg/dL Magnesium 1.7 L (1.8-2.4) mg/dl C-Reactive Protein 6.1 H* (<1.0) mg/dL Med Orders - Current: Current Medications Acetaminophen (Tylenol) 650 mg PO Q4H PRN PRN Reason: Pain (Mild 1-3)/fever Last Admin: 07/05/17 21:56 Dose: 650 mg Hydrocodone Bitart/Acetaminophen ([place] 325-5 Mg) 1 tab PO Q4H PRN PRN Reason: Pain (moderate 4-6) Albuterol/Ipratropium (Duoneb 3.0-0.5 Mg/3 Ml) 3 ml NEB QIDRT [facility] Last Admin: 07/06/17 05:40 Dose: 3 ml Alprazolam (Xanax) 0.25 mg PO TID [facility] Last Admin: 07/05/17 21:17 Dose: 0.25 mg Aspirin (Aspirin) 81 mg PO DAILY [facility] Last Admin: 07/05/17 09:30 Dose: 81 mg Bisacodyl (Dulcolax) 10 mg RECTAL DAILY PRN PRN Reason: Constipation Furosemide (Lasix) 20 mg IVPUSH BID [facility] Last Admin: 07/05/17 23:45 Dose: 20 mg Hydralazine HCl (Apresoline) 10 mg PO Q6H PRN PRN Reason: Hypertension Vancomycin HCl 1 gm/ Sodium (Chloride) 250 mls @ 250 mls/hr IV Q24H [facility] Last Admin: 07/05/17 13:54 Dose: 250 mls/hr Sodium Chloride (Normal Saline) 1,000 mls @ 50 mls/hr IV ASDIRECTED [facility] Last Admin: 07/06/17 04:10 Dose: 50 mls/hr Levalbuterol HCl (Xopenex) 1.25 mg NEB Q6HRRT PRN PRN Reason: Shortness of Breath Last Admin: 07/05/17 11:34 Dose: 1.25 mg Lorazepam (Ativan) 0.5 mg IVPUSH Q6H PRN PRN Reason: Anxiety Metoprolol Tartrate (Lopressor) 5 mg IVPUSH Q4H PRN PRN Reason: Tachycardia Miscellaneous Information (Remove Patch) 1 ea TRDERM DAILY [facility] Nicotine (Habitrol) 7 mg TRDERM DAILY [facility] Last Admin: 07/05/17 09:31 Dose: 7 mg Non-Formulary Medication (Ticagrelor) 90 mg PO BID [facility] Last Admin: 07/05/17 21:17 Dose: Not Given Ondansetron HCl (Zofran Odt) 4 mg PO Q6H PRN PRN Reason: nausea, able to take PO Ondansetron HCl (Zofran) 4 mg IV Q6H PRN PRN Reason: Nausea/Vomiting Pantoprazole Sodium (Protonix) 40 mg PO DAILY@0700 [facility] Last Admin: 07/06/17 06:57 Dose: 40 mg Fluticasone/Vilanterol [Breo Ellipta] 1 Puff 0 each INH DAILY [facility] Last Admin: 07/05/17 09:16 Dose: 1 each Levalbuterol Tartrate [Xopenex Hfa] 2 Puff 0 each INH QID PRN PRN Reason: shortness of breath Phenol/Menthol (Chloraseptic) 0 ml MUCMEM Q4HR PRN PRN Reason: Sore Throat Rosuvastatin Calcium (Crestor) 10 mg PO DAILY [facility] Last Admin: 07/05/17 09:30 Dose: 10 mg Senna/Docusate Sodium (Senna Plus) 1 tab PO BID [facility] Last Admin: 07/05/17 21:17 Dose: 1 tab Senna/Docusate Sodium (Senna Plus) 1 tab PO DAILY PRN PRN Reason: Constipation Sodium Chloride (Saline Flush) 10 ml FLUSH ASDIRECTED PRN PRN Reason: Keep Vein Open Last Admin: 07/04/17 10:45 Dose: 10 ml Temazepam (Restoril) 7.5 mg PO BEDTIME PRN PRN Reason: Sleep Triamcinolone Acetonide (Triamcinolone Acetonide 0.1% Crm) 0 gm TOP DAILY PRN PRN Reason: Rash Vancomycin HCl (Pharmacy To Dose - Vancomycin) 1 dose .XX ASDIRECTED [facility] Discontinued Medications Albuterol/Ipratropium (Duoneb 3.0-0.5 Mg/3 Ml) 3 ml NEB ONETIME ONE Stop: 07/04/17 10:19 Last Admin: 07/04/17 10:49 Dose: 3 ml Albuterol/Ipratropium (Duoneb 3.0-0.5 Mg/3 Ml) 3 ml NEB ONETIME ONE Stop: 07/04/17 12:39 Last Admin: 07/04/17 12:53 Dose: 3 ml Albuterol/Ipratropium (Duoneb 3.0-0.5 Mg/3 Ml) 3 ml NEB ONETIME ONE Stop: 07/04/17 17:22 Last Admin: 07/04/17 17:27 Dose: 3 ml Albuterol/Ipratropium (Duoneb 3.0-0.5 Mg/3 Ml) Confirm Administered Dose 3 ml .ROUTE .STK-MED ONE Stop: 07/04/17 17:20 Last Admin: 07/04/17 17:27 Dose: Not Given Albuterol/Ipratropium (Duoneb 3.0-0.5 Mg/3 Ml) 3 ml NEB QID [facility] Furosemide (Lasix) 40 mg IVPUSH NOW ONE Stop: 07/04/17 10:20 Last Admin: 07/04/17 10:45 Dose: 40 mg Furosemide (Lasix) 40 mg IVPUSH BID [facility] Last Admin: 07/05/17 09:32 Dose: 40 mg Sodium Chloride (Normal Saline) 1,000 mls @ 100 mls/hr IV ASDIRECTED [facility] Last Admin: 07/04/17 10:45 Dose: 100 mls/hr Levofloxacin/Dextrose 750 mg/ (Premix) 150 mls @ 100 mls/hr IV ONETIME ONE Stop: 07/04/17 13:30 Last Admin: 07/04/17 12:09 Dose: 100 mls/hr Vancomycin HCl 1 gm/ Sodium (Chloride) 250 mls @ 250 mls/hr IV ONETIME ONE Stop: 07/04/17 14:34 Last Admin: 07/04/17 14:04 Dose: 250 mls/hr Magnesium Sulfate 2 gm/ Premix 50 mls @ 25 mls/hr IV Q1H [facility] Stop: 07/04/17 19:44 Last Admin: 07/04/17 22:26 Dose: 25 mls/hr Non-Formulary Medication (Levalbuterol Tartrate [Xopenex Hfa]) 2 puff IH QID [facility] Non-Formulary Medication (Fluticasone/Vilanterol) 1 puff IH DAILY [facility] Non-Formulary Medication (Levalbuterol Tartrate [Xopenex Hfa]) 2 puff INH QID PRN PRN Reason: sob Levalbuterol Tartrate [Xopenex Hfa] 2 Puff 0 puff IH QID [facility] Pantoprazole Sodium (Protonix) 40 mg PO DAILY [facility] Levalbuterol Tartrate [Xopenex Hfa] 2 Puff 0 each INH QID [facility] Last Admin: 07/05/17 09:58 Dose: Not Given - Exam General: Alert, Oriented HEENT: Pupils Equal, Pupils Reactive, EOMI, Mucous Membr. Moist/[place] Neck: Supple Lungs: Crackles Cardiovascular: Regular Rate, Regular Rhythm GI/Abdominal Exam: Normal Bowel Sounds, Soft, Non-Tender, No Organomegaly, No Distention, No Abnormal Bruit, No Mass, Pelvis Stable Extremities: Normal Inspection, Normal Range of Motion, Non-Tender, No Pedal Edema, Normal Capillary Refill Skin: Warm, Dry, Intact Psy/Mental Status: Alert, Normal Affect, Normal Mood - Problem List Review Problem List Initiated/Reviewed/Updated: Yes - My Orders Last 24 Hours: My Active Orders 07/05/17 11:12 Furosemide [Lasix] 20 mg IVPUSH BID 07/05/17 14:00 Vancomycin [Vancocin] 1 gm Sodium Chloride 0.9% [Normal Saline] 250 ml IV Q24H 07/05/17 Lunch National Dysphagia Diet [DIET] 07/06/17 09:00 Remove Patch 1 ea TRDERM DAILY - Plan Plan:: I/P: Acute: CHF exacerbation HFpEF -Acute on chronic -Increased swelling in legs (3+) - Normally just feet but it has been getting progressively worse and is now up to knees -Was started on 20 mg Lasix daily after discharge for CVA -Family reports pt. was overloaded on fluid while in hospital and had to be aggressively diuresed -Echo was recently obtained at [place] in [place] - attempt to obtain -BNP 928 -Took normal 20 mg of lasix today, was given 40 mg more in ambulance and 40 mg in ED. -[facility] due to [facility] - good output now -Diuresis using caution as patient reportedly went into renal failure in [place] and was placed on bedside Dialysis. -Low sodium diet -Fluid restriction -06/05 her Cr went up slightly will decrease her lasix to 20 iv bid -Echo pending, waiting for old records -->both showed EF 60% with no diastolic dysfunction Acute on chronic anemia 2/2 chronic disease -will transfuse 1 unit of RBC Acute febrile illness, most likely 2/2 wound infection in right groin, slight drainage -Low grade fever in ED and on floor -UA negative -WBC 12.43 -->resolved 06/05 -Neutrophils 73% -Lactic acid 0.7 -CRP 7.0 -CXR on 07/04/[address] Barron -1. Probable emphysematous change -2. Other findings which are likely incidental as described above -Pt. had some stridor, was recently intubated twice in ED; CT soft tissue neck obtained 07/04/17 - Incidental findings with nothing acute noted -Nebulizers as ordered -Influenza A&B ordered -->neg -Strep ordered -Mycoplasma pneumonia ordered - negative -Can consider respiratory panel -Tylenol as needed for fever -Continue to monitor -currently on empiric vancomycin -wound culture is pending Anxiety -On xanax 0.25 mg TID, started by PCP -Chemo consult ordered, no further testing now -Ativan PRN as ordered Hypomagnesemia -replace Failure to thrive as an adult -Family reports pt. returned from [place] and was placed in [facility] on -Family reports pt. has been primarily sedentary prior to stroke and rapidly deteriorating -There are concerns over patients nutritional status from family and medical providers -Albumin 2.7 -Anion gap 14.7 -Pured diet per SNF notes -Nursing reports no difficulty in drinking liquids. Normal liquid thickness per SNF notes. -Swallow evaluation -Dietary consult Thrombocytosis -Platelets 633,000 -1+ polychromasia -1+ Anisocytosis -Consider further workup, will await prior hospital notes Renal insufficiency, most likely CKD3 -Unsure of baseline - awaiting records from [facility] -Family reports pt. went into complete renal failure after CT contrast in [place] and was on Bedside dialysis -BUN 21 -Creatinine baseline 1.3-1.5 -eGFR 40 -Fluids with caution as worsening CHF -Continue to monitor Chronic: Anemia Hx/o CVA with left sided deficit - swallow study ordered, stable s/p B/L carotids stent s/p Fem-pop thrombelectomy right groin HLD HTN - Home medications and PRN as ordered COPD - Home medications as ordered Osteoperosis [facility]PITAL STAY MORE THAN 96H 2/2 ACUTE CHF/anemia and wound infection
[2017-07-06] MEDS ORDERED: Magnesium Sulfate/Water 2 GM in Premix Bag 1 BAG IV ONE (09:10)
[2017-07-06] MEDS: Furosemide 20 MG/2 ML VIAL IVPUSH SCH ×2 (10:15→21:35)
[2017-07-06] MEDS: Rosuvastatin 10 MG Tab PO SCH (10:16)
[2017-07-06] MEDS: ALPRAZolam 0.25 MG Tab PO SCH ×3 (10:16→21:45)
[2017-07-06] MEDS: Nicotine 7 MG/24 Hr Patch TRDERM SCH (10:16)
[2017-07-06] MEDS: Aspirin 81 MG Tab.Chew PO SCH (10:16)
[2017-07-06] MEDS: Non-Formulary Medication 1 Each (Ticagrelor 90 MG) PO SCH (10:28)
[2017-07-06] MEDS: VILANTEROL INH SCH (10:41)
[2017-07-06] MEDS: FLUTICASONE INH SCH (10:41)
[2017-07-06] MEDS ORDERED: Furosemide 20 MG/2 ML VIAL IVPUSH ONE (12:00)
[2017-07-06] MEDS ORDERED: Sodium Chloride 0.9% 250 ML IV SCH (12:15)
[2017-07-06] MEDS ORDERED: Enoxaparin 80 MG/0.8 ML Syringe SUBCUT SCH (21:00)
[2017-07-06] MEDS: Nystatin Topical Powder 15 GM Bottle TOP SCH (21:38)
[2017-07-06] MEDS: Enoxaparin 80 MG/0.8 ML Syringe SUBCUT SCH (21:44)
[2017-07-07] MEDS ORDERED: Furosemide 20 MG/2 ML VIAL IVPUSH SCH (06:00)
[2017-07-07] MEDS: Albuterol/Ipratropium 3.0-0.5 MG/3 ML Neb Soln NEB SCH ×4 (06:35→20:04)
[2017-07-07] MEDS: Pantoprazole 40 MG Tab.CR PO SCH (06:49)
[2017-07-07] MEDS: Aspirin 81 MG Tab.Chew PO SCH (08:28)
[2017-07-07] MEDS: Nicotine 7 MG/24 Hr Patch TRDERM SCH (08:28)
[2017-07-07] MEDS: ALPRAZolam 0.25 MG Tab PO SCH ×3 (08:28→22:09)
[2017-07-07] MEDS: Rosuvastatin 10 MG Tab PO SCH (08:28)
[2017-07-07] MEDS: Nystatin Topical Powder 15 GM Bottle TOP SCH ×3 (08:35→22:09)
[2017-07-07] MEDS: VILANTEROL INH SCH (09:53)
[2017-07-07] MEDS: FLUTICASONE INH SCH (09:53)
[2017-07-07] MEDS: Fluconazole 100 MG Tab PO SCH (10:13)
--- NOTE | 2017-07-07 13:27 | PCM.PN ---
- General Info Date of Service: 07/07/17 Functional Status: Reports: Pain Controlled - Review of Systems General: Reports: No Symptoms HEENT: Reports: No Symptoms Pulmonary: Reports: No Symptoms Cardiovascular: Reports: No Symptoms Gastrointestinal: Reports: No Symptoms Genitourinary: Reports: No Symptoms Musculoskeletal: Reports: No Symptoms Skin: Reports: No Symptoms Neurological: Reports: No Symptoms Psychiatric: Reports: No Symptoms - Patient Data Vitals - Most Recent: Last Vital Signs Temp 98.1 F 07/07/17 11:29 Pulse 86 07/07/17 11:29 Resp 16 07/07/17 11:29 BP 134/44 L 07/07/17 11:31 Pulse Ox 96 07/07/17 11:29 Weight - Most Recent: 156 lb 9.6 oz I&O - Last 24 Hours: Intake & Output 07/06/17 07/07/17 07/07/17 22:59 06:59 14:59 Intake Total 1180 100 Output Total 1450 Balance -270 100 Lab Results Last 24 Hours: Laboratory Results - last 24 hr 07/06/17 07/07/17 07/07/17 Range/Units 05:50 05:12 05:12 WBC 6.58 (3.98-10.04) K/mm3 RBC 3.31 L (3.98-5.22) M/mm3 Hgb 9.7 L (11.2-15.7) gm/L Hct 30.6 L (34.1-44.9) % MCV 92.4 (79.4-94.8) fl MCH 29.3 (25.6-32.2) pg MCHC 31.7 L (32.2-35.5) g/dl RDW Std Deviation 54.0 H (36.4-46.3) fL Plt Count 465 H (182-369) K/mm3 MPV 8.5 L (9.4-12.3) fl Neut % (Auto) 60.8 (34.0-71.1) % Lymph % (Auto) 20.8 (19.3-51.7) % [place] % (Auto) 10.8 (4.7-12.5) % Eos % (Auto) 5.9 H (0.7-5.8) Baso % (Auto) 0.8 (0.1-1.2) % Neut # (Auto) 4.00 (1.56-6.13) K/mm3 Lymph # (Auto) 1.37 (1.18-3.74) K/mm3 [place] # (Auto) 0.71 H (0.24-0.36) K/mm3 Eos # (Auto) 0.39 H (0.04-0.36) K/mm3 Baso # (Auto) 0.05 (0.01-0.08) K/mm3 Manual Slide Review Abnormal smear Sodium 139 (136-145) mEq/L Potassium 3.7 (3.5-5.1) mEq/L Chloride 103 (98-107) mEq/L Carbon Dioxide 27 (21-32) mEq/L Anion Gap 12.7 (5-15) BUN 23 H (7-18) mg/dL Creatinine 1.4 H (0.55-1.02) mg/dL Est Cr Clr Drug Dosing 29.60 mL/min Estimated GFR (MDRD) 37 (>60) mL/min BUN/Creatinine Ratio 16.4 (14-18) Glucose 103 (83-115) mg/dL Calcium 9.0 (8.5-10.1) mg/dL Magnesium 1.8 (1.8-2.4) mg/dl C-Reactive Protein 4.2 H* (<1.0) mg/dL Crossmatch See Detail Med Orders - Current: Current Medications Acetaminophen (Tylenol) 650 mg PO Q4H PRN PRN Reason: Pain (Mild 1-3)/fever Last Admin: 07/05/17 21:56 Dose: 650 mg Hydrocodone Bitart/Acetaminophen ([place] 325-5 Mg) 1 tab PO Q4H PRN PRN Reason: Pain (moderate 4-6) Albuterol/Ipratropium (Duoneb 3.0-0.5 Mg/3 Ml) 3 ml NEB QIDRT [facility] Last Admin: 07/07/17 09:48 Dose: 3 ml Alprazolam (Xanax) 0.25 mg PO TID [facility] Last Admin: 07/07/17 08:28 Dose: 0.25 mg Aspirin (Aspirin) 81 mg PO DAILY [facility] Last Admin: 07/07/17 08:28 Dose: 81 mg Bisacodyl (Dulcolax) 10 mg RECTAL DAILY PRN PRN Reason: Constipation Enoxaparin Sodium (Lovenox) 80 mg SUBCUT Q24H [facility] Last Admin: 07/06/17 21:44 Dose: 80 mg Fluconazole (Diflucan) 100 mg PO DAILY [facility] Last Admin: 07/07/17 10:13 Dose: 100 mg Furosemide (Lasix) 20 mg PO BIDDIURETIC [facility] Hydralazine HCl (Apresoline) 10 mg PO Q6H PRN PRN Reason: Hypertension Hydrochlorothiazide (Hydrochlorothiazide) 12.5 mg PO DAILY [facility] Vancomycin HCl 1 gm/ Sodium (Chloride) 250 mls @ 250 mls/hr IV Q24H [facility] Last Admin: 07/06/17 16:25 Dose: 250 mls/hr Levalbuterol HCl (Xopenex) 1.25 mg NEB Q6HRRT PRN PRN Reason: Shortness of Breath Last Admin: 07/05/17 11:34 Dose: 1.25 mg Lorazepam (Ativan) 0.5 mg IVPUSH Q6H PRN PRN Reason: Anxiety Losartan Potassium (Cozaar) 100 mg PO DAILY [facility] Metoprolol Tartrate (Lopressor) 5 mg IVPUSH Q4H PRN PRN Reason: Tachycardia Miscellaneous Information (Remove Patch) 1 ea TRDERM DAILY [facility] Last Admin: 07/07/17 10:13 Dose: Not Given Nicotine (Habitrol) 7 mg TRDERM DAILY [facility] Last Admin: 07/07/17 08:28 Dose: 7 mg Nystatin (Nystop) 1 gm TOP TID [facility] Last Admin: 07/07/17 08:35 Dose: 15 applic Ondansetron HCl (Zofran Odt) 4 mg PO Q6H PRN PRN Reason: nausea, able to take PO Ondansetron HCl (Zofran) 4 mg IV Q6H PRN PRN Reason: Nausea/Vomiting Pantoprazole Sodium (Protonix) 40 mg PO DAILY@0700 [facility] Last Admin: 07/07/17 06:49 Dose: 40 mg Fluticasone/Vilanterol [Breo Ellipta] 1 Puff 0 each INH DAILY [facility] Last Admin: 07/07/17 09:53 Dose: 1 each Levalbuterol Tartrate [Xopenex Hfa] 2 Puff 0 each INH QID PRN PRN Reason: shortness of breath Phenol/Menthol (Chloraseptic) 0 ml MUCMEM Q4HR PRN PRN Reason: Sore Throat Rosuvastatin Calcium (Crestor) 10 mg PO DAILY [facility] Last Admin: 07/07/17 08:28 Dose: 10 mg Senna/Docusate Sodium (Senna Plus) 1 tab PO BID [facility] Last Admin: 07/07/17 08:44 Dose: Not Given Senna/Docusate Sodium (Senna Plus) 1 tab PO DAILY PRN PRN Reason: Constipation Sodium Chloride (Saline Flush) 10 ml FLUSH ASDIRECTED PRN PRN Reason: Keep Vein Open Last Admin: 07/04/17 10:45 Dose: 10 ml Temazepam (Restoril) 7.5 mg PO BEDTIME PRN PRN Reason: Sleep Triamcinolone Acetonide (Triamcinolone Acetonide 0.1% Crm) 0 gm TOP DAILY PRN PRN Reason: Rash Vancomycin HCl (Pharmacy To Dose - Vancomycin) 1 dose .XX ASDIRECTED [facility] Discontinued Medications Albuterol/Ipratropium (Duoneb 3.0-0.5 Mg/3 Ml) 3 ml NEB ONETIME ONE Stop: 07/04/17 10:19 Last Admin: 07/04/17 10:49 Dose: 3 ml Albuterol/Ipratropium (Duoneb 3.0-0.5 Mg/3 Ml) 3 ml NEB ONETIME ONE Stop: 07/04/17 12:39 Last Admin: 07/04/17 12:53 Dose: 3 ml Albuterol/Ipratropium (Duoneb 3.0-0.5 Mg/3 Ml) 3 ml NEB ONETIME ONE Stop: 07/04/17 17:22 Last Admin: 07/04/17 17:27 Dose: 3 ml Albuterol/Ipratropium (Duoneb 3.0-0.5 Mg/3 Ml) Confirm Administered Dose 3 ml .ROUTE .STK-MED ONE Stop: 07/04/17 17:20 Last Admin: 07/04/17 17:27 Dose: Not Given Albuterol/Ipratropium (Duoneb 3.0-0.5 Mg/3 Ml) 3 ml NEB QID [facility] Enoxaparin Sodium (Lovenox) 80 mg SUBCUT DAILY [facility] Last Admin: 07/06/17 22:11 Dose: Not Given Furosemide (Lasix) 40 mg IVPUSH NOW ONE Stop: 07/04/17 10:20 Last Admin: 07/04/17 10:45 Dose: 40 mg Furosemide (Lasix) 40 mg IVPUSH BID [facility] Last Admin: 07/05/17 09:32 Dose: 40 mg Furosemide (Lasix) 20 mg IVPUSH BID [facility] Last Admin: 07/06/17 21:35 Dose: Not Given Furosemide (Lasix) 20 mg IVPUSH ONETIME ONE Stop: 07/06/17 12:01 Last Admin: 07/06/17 16:25 Dose: 20 mg Furosemide (Lasix) 20 mg IVPUSH BIDDIURETIC [facility] Last Admin: 07/07/17 06:49 Dose: 20 mg Sodium Chloride (Normal Saline) 1,000 mls @ 100 mls/hr IV ASDIRECTED [facility] Last Admin: 07/04/17 10:45 Dose: 100 mls/hr Levofloxacin/Dextrose 750 mg/ (Premix) 150 mls @ 100 mls/hr IV ONETIME ONE Stop: 07/04/17 13:30 Last Admin: 07/04/17 12:09 Dose: 100 mls/hr Vancomycin HCl 1 gm/ Sodium (Chloride) 250 mls @ 250 mls/hr IV ONETIME ONE Stop: 07/04/17 14:34 Last Admin: 07/04/17 14:04 Dose: 250 mls/hr Magnesium Sulfate 2 gm/ Premix 50 mls @ 25 mls/hr IV Q1H [facility] Stop: 07/04/17 19:44 Last Admin: 07/04/17 22:26 Dose: 25 mls/hr Sodium Chloride (Normal Saline) 1,000 mls @ 50 mls/hr IV ASDIRECTED [facility] Last Admin: 07/06/17 04:10 Dose: 50 mls/hr Magnesium Sulfate 2 gm/ Premix 50 mls @ 25 mls/hr IV ONETIME ONE Stop: 07/06/17 11:09 Last Admin: 07/06/17 10:15 Dose: 25 mls/hr Sodium Chloride (Normal Saline) 250 mls @ 100 mls/hr IV ASDIRECTED [facility] Stop: 07/06/17 14:44 Last Admin: 07/06/17 13:13 Dose: 100 mls/hr Non-Formulary Medication (Levalbuterol Tartrate [Xopenex Hfa]) 2 puff IH QID [facility] Non-Formulary Medication (Ticagrelor) 90 mg PO BID [facility] Last Admin: 07/06/17 10:28 Dose: Not Given Non-Formulary Medication (Fluticasone/Vilanterol) 1 puff IH DAILY [facility] Non-Formulary Medication (Levalbuterol Tartrate [Xopenex Hfa]) 2 puff INH QID PRN PRN Reason: sob Levalbuterol Tartrate [Xopenex Hfa] 2 Puff 0 puff IH QID [facility] Pantoprazole Sodium (Protonix) 40 mg PO DAILY [facility] Levalbuterol Tartrate [Xopenex Hfa] 2 Puff 0 each INH QID [facility] Last Admin: 07/05/17 09:58 Dose: Not Given - Exam General: Alert, Oriented HEENT: Pupils Equal, Pupils Reactive, EOMI, Mucous Membr. Moist/[place] Neck: Supple Lungs: Clear to Auscultation, Normal Respiratory Effort Cardiovascular: Regular Rate, Regular Rhythm GI/Abdominal Exam: Normal Bowel Sounds, Soft, Non-Tender, No Organomegaly, No Distention, No Abnormal Bruit, No Mass, Pelvis Stable Extremities: Normal Inspection, Normal Range of Motion, Non-Tender, No Pedal Edema, Normal Capillary Refill Skin: Other (right groin wound drainge ) - Problem List Review Problem List Initiated/Reviewed/Updated: Yes - My Orders Last 24 Hours: My Active Orders 07/07/17 02:00 Communication Order [RC] Q6HR 07/07/17 09:00 Fluconazole [Diflucan] 100 mg PO DAILY 07/07/17 14:00 Furosemide [Lasix] 20 mg PO BIDDIURETIC 07/07/17 Lunch National Dysphagia Diet [DIET] 07/08/17 09:00 Hydrochlorothiazide 12.5 mg PO DAILY Losartan [Cozaar] 100 mg PO DAILY - Plan Plan:: I/P: Acute: CHF exacerbation HFpEF -Acute on chronic -Increased swelling in legs (3+) - Normally just feet but it has been getting progressively worse and is now up to knees -Was started on 20 mg Lasix daily after discharge for CVA -Family reports pt. was overloaded on fluid while in hospital and had to be aggressively diuresed -Echo was recently obtained at [facility] - attempt to obtain -BNP 928 -[facility] to [facility] - good output now -Diuresis using caution as patient reportedly went into renal failure in [place] and was placed on bedside Dialysis. -Low sodium diet -remove Fluid restriction -07/05 her Cr went up slightly will decrease her lasix to 20 iv bid , 07/07 change to jared bID -Echo pending, waiting for old records -->both showed EF 60% with no diastolic dysfunction Acute on chronic anemia 2/2 chronic disease -will transfuse 1 unit of RBC 07/06 Acute febrile illness, most likely 2/2 wound infection in right groin, slight drainage -Low grade fever in ED and on floor -UA negative -WBC 12.43 -->resolved 06/05 -Neutrophils 73% -Lactic acid 0.7 -CRP 7.0 -CXR on 07/04/[address] Barron -1. Probable emphysematous change -2. Other findings which are likely incidental as described above -Pt. had some stridor, was recently intubated twice in ED; CT soft tissue neck obtained 07/04/17 - Incidental findings with nothing acute noted -Nebulizers as ordered -Influenza A&B ordered -->neg -Strep ordered -Mycoplasma pneumonia ordered - negative -Can consider respiratory panel -Tylenol as needed for fever -Continue to monitor -currently on empiric vancomycin -wound culture is pending , showed niranjan, will add diflucan Anxiety -On xanax 0.25 mg TID, started by PCP -Chemo consult ordered, no further testing now -Ativan PRN as ordered Hypomagnesemia -replace Failure to thrive as an adult -Family reports pt. returned from [place] and was placed in [facility] on -Family reports pt. has been primarily sedentary prior to stroke and rapidly deteriorating -There are concerns over patients nutritional status from family and medical providers -Albumin 2.7 -Anion gap 14.7 -Pured diet per SNF notes -Nursing reports no difficulty in drinking liquids. Normal liquid thickness per SNF notes. -Swallow evaluation -Dietary consult Thrombocytosis -Platelets 633,000 -1+ polychromasia -1+ Anisocytosis -Consider further workup, will await prior hospital notes Renal insufficiency, most likely CKD3 -Unsure of baseline - awaiting records from [facility] -Family reports pt. went into complete renal failure after CT contrast in [place] and was on Bedside dialysis -BUN 21 -Creatinine baseline 1.3-1.5 -eGFR 40 -Fluids with caution as worsening CHF -Continue to monitor Chronic: Anemia Hx/o CVA with left sided deficit - swallow study ordered, stable s/p B/L carotids stent s/p Fem-pop thrombelectomy right groin HLD HTN - Home medications and PRN as ordered COPD - Home medications as ordered Osteoperosis dispo: SNF on am [facility]OS[facility] STAY MORE THAN 96H 2/2 ACUTE CHF/anemia and wound infection
[2017-07-07] MEDS: Furosemide 20 MG Tab PO SCH (14:33)
[2017-07-07] MEDS: Enoxaparin 80 MG/0.8 ML Syringe SUBCUT SCH (22:12)
[2017-07-08] MEDS: Albuterol/Ipratropium 3.0-0.5 MG/3 ML Neb Soln NEB SCH ×4 (05:37→20:46)
[2017-07-08] MEDS: Pantoprazole 40 MG Tab.CR PO SCH (06:09)
[2017-07-08] MEDS: Furosemide 20 MG Tab PO SCH ×2 (06:09→15:22)
[2017-07-08] MEDS: FLUTICASONE INH SCH (08:20)
[2017-07-08] MEDS: VILANTEROL INH SCH (08:20)
[2017-07-08] MEDS: Levalbuterol HCl 1.25 MG/3 ML Neb NEB PRN (08:20)
[2017-07-08] MEDS: Losartan 100 MG Tab PO SCH (08:39)
[2017-07-08] MEDS: Hydrochlorothiazide 12.5 MG Cap PO SCH (08:39)
[2017-07-08] MEDS: Rosuvastatin 10 MG Tab PO SCH (08:39)
[2017-07-08] MEDS: Amoxicillin/Clavulanate K 875-125 MG Tab PO SCH ×2 (08:39→20:06)
[2017-07-08] MEDS: Nicotine 7 MG/24 Hr Patch TRDERM SCH (08:40)
[2017-07-08] MEDS: Aspirin 81 MG Tab.Chew PO SCH (08:40)
[2017-07-08] MEDS: ALPRAZolam 0.25 MG Tab PO SCH ×3 (08:40→20:06)
[2017-07-08] MEDS: Nystatin Topical Powder 15 GM Bottle TOP SCH ×3 (08:40→20:06)
[2017-07-08] MEDS: Fluconazole 100 MG Tab PO SCH (08:40)
--- NOTE | 2017-07-08 09:09 | PCM.DCSUM1 ---
Discharge Summary - Hospital Course HPI Initial Comments: Sheila Dickerson is a 71 yo female who presented to our ED today from a local correction with shortness of breath via ambulance. She was in her ED approximately 18 days ago after suffering a dense stroke with complete left hemiparesis. 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 She underwent bilateral endarterectomy. While recovering her kidneys failed and she required bedside dialysis at least 3 separate occasions. She's now been off dialysis for 3 days. She had previously had a central line placed in her left subclavian and a dialysis line placed right from oral artery and vein. She also had a Yates catheter in place up until 3 days prior. In the meantime she has become more dyspneic over the past 48 hours, this was particularly bad yesterday. She noted increased edema of the lower extremities and difficulty breathing this morning. O2 sats are found to be in the mid 80s. Denies a cough. It is noted by the ED provider that she was intubated twice and there were some concerns over a cord damage. She also has a speech deficit due to the stroke. She's been for the most part bed ridden and is unable to walk due to left-sided paresis. She does have very minimal spontaneous movement of her left arm and hand. She did receive physical therapy, occupational therapy, and speech therapy while in the hospital. It is noted by the ED provider that there appears to be some reluctance on the patient's part to eat or drink. In the ED vital signs were obtained. Her temperature is 37.2 Celsius. Pulse is 103 and tachycardic. Respirations 18. Blood pressure is elevated at 161/ 58. Pulse ox 97%. EKG was obtained in the ED and interpreted by the ED provider as a sinus tachycardia rate of 102 bpm. Normal axis with enlarged P waves. Left ventricular hypertrophy is noted as well as mildly decreased voltage in limb leads. It is a borderline EKG. Labs are obtained: 30 mL elevated at 12.43. Hemoglobin low at 9.2. Hematocrit low at 29.3. She is normocytic. Fluids are very high at 633,000. Neutrophils are elevated at 73% there's 5% band neutrophils noted PT is normal at 11.2. INR 1.03. Sodium was good at 137. Potassium 3.7. Chloride 100. Carbon dioxide 26. Anion gap was good at 14.7. BUN is slightly high at 21. Creatinine is high at 1.3. EGFR is 40. Glucose is 1:30. Lactic acid 0.7. Calcium 9.7. Magnesium is low at 1.3. Total bilirubin 0.7. Liver enzymes looked good with AST at 31 ALT at 48 and alkaline phosphatase at 100. CK-MB is 2.1. Troponin less than 0.017. CRP is elevated at 7.0. BNP is elevated at 928. Protein is 7.3 albumin is low at 2.7. UA is negative, however trace occult blood is noted, likely from catheterization prior to arrival at the correction. It is reported she is refusing to eat or drink very much. Tongue is dry and coated. Rectal temperature was obtained and found to be 99F portal chest x-ray was obtained and is interpreted by Dr. Barron as "1. Probable emphysematous change. 2. Other findings which are likely incidental as described above." Bony structures are noted to be osteopenic. There was some concern from family that the area with a dialysis catheter was placed was contaminated with stool on multiple occasions. Levaquin 750 mg IV was given in the ED. She does have a noted allergy to cefaclor and thus Rocephin was not given. 1 g IV they Comycin was given to cover MRSA prior to her being brought to the medical floor. Blood cultures were obtained. Wound cultures from her right groin were also obtained in the ED however the provider notes that this did not appear to be infected. She was given multiple DuoNeb treatments which appear to help. She was also given 40 mg of Lasix. She subsequently admitted to the medical floor on telemetry. She carries a history of heart murmur, HLD, HTN, tachycardia, COPD, urinary retention, osteoporosis, CVA with left-sided hemiparesis, and anemia. She is a former pack or more cigarettes smoker for 55 years. She is currently on nicotine patch 21 mg strength. She did quit last month at the beginning of her CVA episode. Code status: Full Code. Her PCP is Dr. Carter at [facility] in [place]. - Discharge Data Discharge Date: 07/08/17 Discharge Disposition: DC/Tfer to SNF 03 Condition: Good - Discharge Diagnosis/Problem(s) (1) Congestive heart failure SNOMED Code(s): 98195015 ICD Code: I50.9 - HEART FAILURE, UNSPECIFIED Status: Acute Priority: High Current Visit: Yes Qualifiers: Congestive heart failure type: unspecified congestive heart failure type Congestive heart failure chronicity: acute on chronic Qualified Code(s): I50.9 - Heart failure, unspecified (2) Febrile illness, acute SNOMED Code(s): 908362212 ICD Code: R50.9 - FEVER, UNSPECIFIED Status: Acute Current Visit: Yes (3) Hypomagnesemia SNOMED Code(s): 557281660 ICD Code: E83.42 - HYPOMAGNESEMIA Status: Acute Priority: High Current Visit: Yes (4) Hemiparesis affecting left side as late effect of cerebrovascular accident SNOMED Code(s): 847843746 ICD Code: I69.354 - HEMIPLGA FOLLOWING CEREBRAL INFRC AFFECTING LEFT NONDOM SIDE Status: Chronic Priority: Low Current Visit: Yes - Patient Summary/Data Consults: Consultations 07/04/17 17:35 Consult to Case Management [CONS] Routine Consult to Novelties Sales Representative [CONS] Routine Consult to Physician [CONS] Routine Consult to [employer] [CONS] Routine OT Evaluation and Treatment [CONS] Routine PT Evaluation and Treatment [CONS] Routine Respiratory Care Assess and Treatment [CONS] Routine PROCESSING LEAD Evaluation and Treatment [CONS] Routine Hospital Course: Acute: CHF exacerbation HFpEF -Acute on chronic -Increased swelling in legs (3+) - Normally just feet but it has been getting progressively worse and is now up to knees -Was started on 20 mg Lasix daily after discharge for CVA -Family reports pt. was overloaded on fluid while in hospital and had to be aggressively diuresed -Echo was recently obtained at [facility] - attempt to obtain -BNP 928 -Yates placed at correction today due to retention - good output now -Diuresis using caution as patient reportedly went into renal failure in [place] and was placed on bedside Dialysis. -Low sodium diet -remove Fluid restriction -07/05 her Cr went up slightly will decrease her lasix to 20 iv bid , 07/07 change to oral BID -Echo pending, waiting for old records -->both showed EF 60% with no diastolic dysfunction Acute on chronic anemia 2/2 chronic disease -will transfuse 1 unit of RBC 07/06 Acute febrile illness, most likely 2/2 wound infection in right groin, slight drainage -Low grade fever in ED and on floor -UA negative -WBC 12.43 -->resolved 06/05 -Neutrophils 73% -Lactic acid 0.7 -CRP 7.0 -CXR on 07/04/[address] Barron -1. Probable emphysematous change -2. Other findings which are likely incidental as described above -Pt. had some stridor, was recently intubated twice in ED; CT soft tissue neck obtained 07/04/17 - Incidental findings with nothing acute noted -Nebulizers as ordered -Influenza A&B ordered -->neg -Strep ordered -Mycoplasma pneumonia ordered - negative -Can consider respiratory panel -Tylenol as needed for fever -Continue to monitor -IN HOSPITAL ON empiric vancomycin -wound culture is pending , showed niranjan, will add diflucan, also showed Enterococcus fecalis pt benigno will be DC on oral augmentin total treatment for 10 days and diflucan for 3 days Anxiety -On xanax 0.25 mg TID, started by PCP -Chemo consult ordered, no further testing now -Ativan PRN as ordered Hypomagnesemia -replace Failure to thrive as an adult -Family reports pt. returned from [place] and was placed in [facility] on -Family reports pt. has been primarily sedentary prior to stroke and rapidly deteriorating -There are concerns over patients nutritional status from family and medical providers -Albumin 2.7 -Anion gap 14.7 -Pured diet per SNF notes -Nursing reports no difficulty in drinking liquids. Normal liquid thickness per SNF notes. -Swallow evaluation -Dietary consult Thrombocytosis -Platelets 633,000 -1+ polychromasia -1+ Anisocytosis -Consider further workup, will await prior hospital notes Renal insufficiency, most likely CKD3 -Unsure of baseline - awaiting records from [facility] -Family reports pt. went into complete renal failure after CT contrast in [place] and was on Bedside dialysis -BUN 21 -Creatinine baseline 1.3-1.5 -eGFR 40 -Fluids with caution as worsening CHF -Continue to monitor Chronic: Anemia Hx/o CVA with left sided deficit - swallow study ordered, stable s/p B/L carotids stent s/p Fem-pop thrombelectomy right groin HLD HTN - Home medications and PRN as ordered COPD - Home medications as ordered Osteoperosis dispo: SNF - Patient Instructions Diet: Heart Healthy Diet Activity: As Tolerated Wound/Incision Care: Keep Operative Site/Wound Site Clean and Dry Notify Provider of: Fever - Discharge Plan Prescriptions/Med Rec: Amoxicillin/Clavulanate K [Augmentin 875 MG/125 MG] 1 tab PO Q12HR 6 Days #12 tablet Fluconazole [Diflucan] 100 mg PO DAILY 2 Days #2 tablet Home Medications: Home Meds ALPRAZolam [Xanax] 0.25 mg PO TID 07/04/17 [History] Acetaminophen [Acetaminophen Extra Strength] 2 tab PO Q6H PRN 07/04/17 [History] Aspirin 81 mg PO DAILY 07/04/17 [History] Bisacodyl [Dulcolax] 10 mg RECTAL DAILY PRN 07/04/17 [History] Docusate Sodium/Sennosides [Senna Plus] 1 tab PO BID 07/04/17 [History] Docusate Sodium/Sennosides [Senna Plus] 1 tab PO DAILY PRN 07/04/17 [History] Fluticasone/Vilanterol [Breo Ellipta 100-25 MCG Inhalation Kit] 1 puff IH DAILY 07/04/17 [History] Ipratropium/Albuterol Sulfate [Iprat-Albut 0.5-3(2.5) mg/3 ml] 3 ml IH QID 07/04 [History] Levalbuterol Tartrate [Xopenex Hfa] 2 puff INH QID PRN 07/04/17 [History] Losartan/Hydrochlorothiazide [Hyzaar 100-12.5 Tablet] 1 tab PO DAILY 07/04/17 [ History] Multivitamin with Minerals [Multiple Vitamin] 1 tab PO DAILY 07/04/17 [History] Nicotine [Nicotine Patch] 1 patch TD DAILY 07/04/17 [History] Pantoprazole [ProTONIX] 40 mg PO DAILY 07/04/17 [History] Ticagrelor [Brilinta] 90 mg PO BID 07/04/17 [History] Triamcinolone Acetonide [Triamcinolone Acetonide 0.1% Crm] 1 applic TRDERM DAILY PRN 07/04/17 [History] atorvaSTATin [Lipitor] 40 mg PO DAILY 07/04/17 [History] Amoxicillin/Clavulanate K [Augmentin 875 MG/125 MG] 1 tab PO Q12HR 6 Days #12 tablet 07/08/17 [Rx] Fluconazole [Diflucan] 100 mg PO DAILY 2 Days #2 tablet 07/08/17 [Rx] Furosemide [Lasix] 20 mg PO BIDDIURETIC tablet 07/08/17 [Rx] Patient's Own Medication [Ptom] 0 each INH QID PRN each 07/08/17 [Rx] Patient Handouts: Smoking Hazards, Stroke Prevention, Sldf-li-[id number], Chronic Obstructive Pulmonary Disease, Obli-pt-Pfhd, Wound Infection, Qgzw-ul-[id number], Smoking Cessation, Tips for Success, Heart Failure, [id number] Forms: ED Department Discharge Referrals: Que Carter MD [Primary Care Provider] - - Discharge Summary/Plan Comment DC Time >30 min.: Yes - Patient Data Vitals - Most Recent: Last Vital Signs Temp 98.4 F 07/08/17 08:35 Pulse 89 07/08/17 08:35 Resp 20 07/08/17 08:35 BP 127/96 H 07/08/17 08:39 Pulse Ox 93 L 07/08/17 08:35 Weight - Most Recent: 157 lb 9.6 oz I&O - Last 24 hours: Intake & Output 07/07/17 07/08/17 07/08/17 22:59 06:59 14:59 Intake Total 990 300 Output Total 500 550 Balance 490 -250 Lab Results - Last 24 hrs: Laboratory Results - last 24 hr 07/08/17 07/08/17 Range/Units 06:12 06:12 WBC 6.41 (3.98-10.04) K/mm3 RBC 3.33 L (3.98-5.22) M/mm3 Hgb 9.8 L (11.2-15.7) gm/L Hct 31.0 L (34.1-44.9) % MCV 93.1 (79.4-94.8) fl MCH 29.4 (25.6-32.2) pg MCHC 31.6 L (32.2-35.5) g/dl RDW Std Deviation 53.5 H (36.4-46.3) fL Plt Count 436 H (182-369) K/mm3 MPV 8.2 L (9.4-12.3) fl Neut % (Auto) 62.4 (34.0-71.1) % Lymph % (Auto) 19.8 (19.3-51.7) % [place] % (Auto) 10.6 (4.7-12.5) % Eos % (Auto) 5.8 (0.7-5.8) Baso % (Auto) 0.6 (0.1-1.2) % Neut # (Auto) 4.00 (1.56-6.13) K/mm3 Lymph # (Auto) 1.27 (1.18-3.74) K/mm3 [place] # (Auto) 0.68 H (0.24-0.36) K/mm3 Eos # (Auto) 0.37 H (0.04-0.36) K/mm3 Baso # (Auto) 0.04 (0.01-0.08) K/mm3 Sodium 138 (136-145) mEq/L Potassium 4.0 (3.5-5.1) mEq/L Chloride 102 (98-107) mEq/L Carbon Dioxide 27 (21-32) mEq/L Anion Gap 13.0 (5-15) BUN 20 H (7-18) mg/dL Creatinine 1.4 H (0.55-1.02) mg/dL Est Cr Clr Drug Dosing 29.60 mL/min Estimated GFR (MDRD) 37 (>60) mL/min BUN/Creatinine Ratio 14.3 (14-18) Glucose 109 (83-115) mg/dL Calcium 9.1 (8.5-10.1) mg/dL Magnesium 1.5 L (1.8-2.4) mg/dl C-Reactive Protein 3.2 H* (<1.0) mg/dL Med Orders - Current: Current Medications Acetaminophen (Tylenol) 650 mg PO Q4H PRN PRN Reason: Pain (Mild 1-3)/fever Last Admin: 07/05/17 21:56 Dose: 650 mg Hydrocodone Bitart/Acetaminophen (Gay 325-5 Mg) 1 tab PO Q4H PRN PRN Reason: Pain (moderate 4-6) Albuterol/Ipratropium (Duoneb 3.0-0.5 Mg/3 Ml) 3 ml NEB QIDRT [facility] Last Admin: 07/08/17 05:37 Dose: 3 ml Alprazolam (Xanax) 0.25 mg PO TID [facility] Last Admin: 07/08/17 08:40 Dose: 0.25 mg Amoxicillin/Clavulanate Potassium (Augmentin 875 Mg/125 Mg) 1 tab PO Q12HR [facility] Last Admin: 07/08/17 08:39 Dose: 1 tab Aspirin (Aspirin) 81 mg PO DAILY [facility] Last Admin: 07/08/17 08:40 Dose: 81 mg Bisacodyl (Dulcolax) 10 mg RECTAL DAILY PRN PRN Reason: Constipation Enoxaparin Sodium (Lovenox) 80 mg SUBCUT Q24H [facility] Last Admin: 07/07/17 22:12 Dose: 80 mg Fluconazole (Diflucan) 100 mg PO DAILY [facility] Last Admin: 07/08/17 08:40 Dose: 100 mg Furosemide (Lasix) 20 mg PO BIDDIURETIC [facility] Last Admin: 07/08/17 06:09 Dose: 20 mg Hydralazine HCl (Apresoline) 10 mg PO Q6H PRN PRN Reason: Hypertension Hydrochlorothiazide (Hydrochlorothiazide) 12.5 mg PO DAILY [facility] Last Admin: 07/08/17 08:39 Dose: 12.5 mg Levalbuterol HCl (Xopenex) 1.25 mg NEB Q6HRRT PRN PRN Reason: Shortness of Breath Last Admin: 07/08/17 08:20 Dose: 1.25 mg Lorazepam (Ativan) 0.5 mg IVPUSH Q6H PRN PRN Reason: Anxiety Losartan Potassium (Cozaar) 100 mg PO DAILY [facility] Last Admin: 07/08/17 08:39 Dose: 100 mg Metoprolol Tartrate (Lopressor) 5 mg IVPUSH Q4H PRN PRN Reason: Tachycardia Miscellaneous Information (Remove Patch) 1 ea TRDERM DAILY [facility] Last Admin: 07/08/17 08:41 Dose: 1 ea Nicotine (Habitrol) 7 mg TRDERM DAILY [facility] Last Admin: 07/08/17 08:40 Dose: 7 mg Nystatin (Nystop) 1 gm TOP TID [facility] Last Admin: 07/08/17 08:40 Dose: 1 applic Ondansetron HCl (Zofran Odt) 4 mg PO Q6H PRN PRN Reason: nausea, able to take PO Ondansetron HCl (Zofran) 4 mg IV Q6H PRN PRN Reason: Nausea/Vomiting Pantoprazole Sodium (Protonix) 40 mg PO DAILY@0700 [facility] Last Admin: 07/08/17 06:09 Dose: 40 mg Fluticasone/Vilanterol [Breo Ellipta] 1 Puff 0 each INH DAILY [facility] Last Admin: 07/08/17 08:20 Dose: 1 each Levalbuterol Tartrate [Xopenex Hfa] 2 Puff 0 each INH QID PRN PRN Reason: shortness of breath Phenol/Menthol (Chloraseptic) 0 ml MUCMEM Q4HR PRN PRN Reason: Sore Throat Rosuvastatin Calcium (Crestor) 10 mg PO DAILY [facility] Last Admin: 07/08/17 08:39 Dose: 10 mg Senna/Docusate Sodium (Senna Plus) 1 tab PO BID [facility] Last Admin: 07/08/17 08:41 Dose: Not Given Senna/Docusate Sodium (Senna Plus) 1 tab PO DAILY PRN PRN Reason: Constipation Sodium Chloride (Saline Flush) 10 ml FLUSH ASDIRECTED PRN PRN Reason: Keep Vein Open Last Admin: 07/04/17 10:45 Dose: 10 ml Temazepam (Restoril) 7.5 mg PO BEDTIME PRN PRN Reason: Sleep Triamcinolone Acetonide (Triamcinolone Acetonide 0.1% Crm) 0 gm TOP DAILY PRN PRN Reason: Rash Discontinued Medications Albuterol/Ipratropium (Duoneb 3.0-0.5 Mg/3 Ml) 3 ml NEB ONETIME ONE Stop: 07/04/17 10:19 Last Admin: 07/04/17 10:49 Dose: 3 ml Albuterol/Ipratropium (Duoneb 3.0-0.5 Mg/3 Ml) 3 ml NEB ONETIME ONE Stop: 07/04/17 12:39 Last Admin: 07/04/17 12:53 Dose: 3 ml Albuterol/Ipratropium (Duoneb 3.0-0.5 Mg/3 Ml) 3 ml NEB ONETIME ONE Stop: 07/04/17 17:22 Last Admin: 07/04/17 17:27 Dose: 3 ml Albuterol/Ipratropium (Duoneb 3.0-0.5 Mg/3 Ml) Confirm Administered Dose 3 ml .ROUTE .STK-MED ONE Stop: 07/04/17 17:20 Last Admin: 07/04/17 17:27 Dose: Not Given Albuterol/Ipratropium (Duoneb 3.0-0.5 Mg/3 Ml) 3 ml NEB QID [facility] Enoxaparin Sodium (Lovenox) 80 mg SUBCUT DAILY [facility] Last Admin: 07/06/17 22:11 Dose: Not Given Furosemide (Lasix) 40 mg IVPUSH NOW ONE Stop: 07/04/17 10:20 Last Admin: 07/04/17 10:45 Dose: 40 mg Furosemide (Lasix) 40 mg IVPUSH BID [facility] Last Admin: 07/05/17 09:32 Dose: 40 mg Furosemide (Lasix) 20 mg IVPUSH BID [facility] Last Admin: 07/06/17 21:35 Dose: Not Given Furosemide (Lasix) 20 mg IVPUSH ONETIME ONE Stop: 07/06/17 12:01 Last Admin: 07/06/17 16:25 Dose: 20 mg Furosemide (Lasix) 20 mg IVPUSH BIDDIURETIC [facility] Last Admin: 07/07/17 06:49 Dose: 20 mg Sodium Chloride (Normal Saline) 1,000 mls @ 100 mls/hr IV ASDIRECTED [facility] Last Admin: 07/04/17 10:45 Dose: 100 mls/hr Levofloxacin/Dextrose 750 mg/ (Premix) 150 mls @ 100 mls/hr IV ONETIME ONE Stop: 07/04/17 13:30 Last Admin: 07/04/17 12:09 Dose: 100 mls/hr Vancomycin HCl 1 gm/ Sodium (Chloride) 250 mls @ 250 mls/hr IV ONETIME ONE Stop: 07/04/17 14:34 Last Admin: 07/04/17 14:04 Dose: 250 mls/hr Magnesium Sulfate 2 gm/ Premix 50 mls @ 25 mls/hr IV Q1H [facility] Stop: 07/04/17 19:44 Last Admin: 07/04/17 22:26 Dose: 25 mls/hr Vancomycin HCl 1 gm/ Sodium (Chloride) 250 mls @ 250 mls/hr IV Q24H [facility] Last Admin: 07/07/17 15:14 Dose: 250 mls/hr Sodium Chloride (Normal Saline) 1,000 mls @ 50 mls/hr IV ASDIRECTED [facility] Last Admin: 07/06/17 04:10 Dose: 50 mls/hr Magnesium Sulfate 2 gm/ Premix 50 mls @ 25 mls/hr IV ONETIME ONE Stop: 07/06/17 11:09 Last Admin: 07/06/17 10:15 Dose: 25 mls/hr Sodium Chloride (Normal Saline) 250 mls @ 100 mls/hr IV ASDIRECTED [facility] Stop: 07/06/17 14:44 Last Admin: 07/06/17 13:13 Dose: 100 mls/hr Non-Formulary Medication (Levalbuterol Tartrate [Xopenex Hfa]) 2 puff IH QID [facility] Non-Formulary Medication (Ticagrelor) 90 mg PO BID [facility] Last Admin: 07/06/17 10:28 Dose: Not Given Non-Formulary Medication (Fluticasone/Vilanterol) 1 puff IH DAILY [facility] Non-Formulary Medication (Levalbuterol Tartrate [Xopenex Hfa]) 2 puff INH QID PRN PRN Reason: sob Levalbuterol Tartrate [Xopenex Hfa] 2 Puff 0 puff IH QID [facility] Pantoprazole Sodium (Protonix) 40 mg PO DAILY [facility] Levalbuterol Tartrate [Xopenex Hfa] 2 Puff 0 each INH QID [facility] Last Admin: 07/05/17 09:58 Dose: Not Given Vancomycin HCl (Pharmacy To Dose - Vancomycin) 1 dose .XX ASDIRECTED [facility] *Q Meaningful Use (DIS) - VTE *Q VTE Criteria *Q: - Stroke *Q Stroke Criteria *Q: - AMI *Q AMI Criteria *Q:
[2017-07-08] MEDS ORDERED: Magnesium Oxide 400 MG Tab PO ONE (14:00)
[2017-07-08] MEDS: Enoxaparin 80 MG/0.8 ML Syringe SUBCUT SCH (22:38)
[2017-07-09] MEDS: Albuterol/Ipratropium 3.0-0.5 MG/3 ML Neb Soln NEB SCH ×4 (06:17→21:00)
[2017-07-09] MEDS: Pantoprazole 40 MG Tab.CR PO SCH (06:25)
[2017-07-09] MEDS: Furosemide 20 MG Tab PO SCH ×2 (06:25→13:33)
--- NOTE | 2017-07-09 08:20 | PCM.PN ---
- General Info Date of Service: 07/08/17 Functional Status: Reports: Pain Controlled - Review of Systems General: Reports: No Symptoms HEENT: Reports: No Symptoms Pulmonary: Reports: No Symptoms Cardiovascular: Reports: No Symptoms Gastrointestinal: Reports: No Symptoms Genitourinary: Reports: No Symptoms Musculoskeletal: Reports: No Symptoms Skin: Reports: No Symptoms Neurological: Reports: No Symptoms Psychiatric: Reports: No Symptoms - Patient Data Vitals - Most Recent: Last Vital Signs Temp 98.4 F 07/09/17 01:32 Pulse 81 07/09/17 01:32 Resp 12 07/09/17 01:32 BP 115/46 L 07/09/17 01:32 Pulse Ox 92 L 07/09/17 06:18 Weight - Most Recent: 157 lb 9.6 oz I&O - Last 24 Hours: Intake & Output 07/08/17 07/09/17 07/09/17 22:59 06:59 14:59 Intake Total 1220 Output Total 900 Balance 320 Med Orders - Current: Current Medications Acetaminophen (Tylenol) 650 mg PO Q4H PRN PRN Reason: Pain (Mild 1-3)/fever Last Admin: 07/05/17 21:56 Dose: 650 mg Hydrocodone Bitart/Acetaminophen ([place] 325-5 Mg) 1 tab PO Q4H PRN PRN Reason: Pain (moderate 4-6) Albuterol/Ipratropium (Duoneb 3.0-0.5 Mg/3 Ml) 3 ml NEB QIDRT [facility] Last Admin: 07/09/17 06:17 Dose: 3 ml Alprazolam (Xanax) 0.25 mg PO TID [facility] Last Admin: 07/08/17 20:06 Dose: 0.25 mg Amoxicillin/Clavulanate Potassium (Augmentin 875 Mg/125 Mg) 1 tab PO Q12HR [facility] Last Admin: 07/08/17 20:06 Dose: 1 tab Aspirin (Aspirin) 81 mg PO DAILY [facility] Last Admin: 07/08/17 08:40 Dose: 81 mg Bisacodyl (Dulcolax) 10 mg RECTAL DAILY PRN PRN Reason: Constipation Enoxaparin Sodium (Lovenox) 80 mg SUBCUT Q24H [facility] Last Admin: 07/08/17 22:38 Dose: 80 mg Fluconazole (Diflucan) 100 mg PO DAILY [facility] Last Admin: 07/08/17 08:40 Dose: 100 mg Furosemide (Lasix) 20 mg PO BIDDIURETIC [facility] Last Admin: 07/09/17 06:25 Dose: 20 mg Hydralazine HCl (Apresoline) 10 mg PO Q6H PRN PRN Reason: Hypertension Hydrochlorothiazide (Hydrochlorothiazide) 12.5 mg PO DAILY [facility] Last Admin: 07/08/17 08:39 Dose: 12.5 mg Levalbuterol HCl (Xopenex) 1.25 mg NEB Q6HRRT PRN PRN Reason: Shortness of Breath Last Admin: 07/08/17 08:20 Dose: 1.25 mg Lorazepam (Ativan) 0.5 mg IVPUSH Q6H PRN PRN Reason: Anxiety Losartan Potassium (Cozaar) 100 mg PO DAILY [facility] Last Admin: 07/08/17 08:39 Dose: 100 mg Metoprolol Tartrate (Lopressor) 5 mg IVPUSH Q4H PRN PRN Reason: Tachycardia Miscellaneous Information (Remove Patch) 1 ea TRDERM DAILY [facility] Last Admin: 07/08/17 08:41 Dose: 1 ea Nicotine (Habitrol) 7 mg TRDERM DAILY [facility] Last Admin: 07/08/17 08:40 Dose: 7 mg Nystatin (Nystop) 1 gm TOP TID [facility] Last Admin: 07/08/17 20:06 Dose: 1 applic Ondansetron HCl (Zofran Odt) 4 mg PO Q6H PRN PRN Reason: nausea, able to take PO Ondansetron HCl (Zofran) 4 mg IV Q6H PRN PRN Reason: Nausea/Vomiting Pantoprazole Sodium (Protonix) 40 mg PO DAILY@0700 [facility] Last Admin: 07/09/17 06:25 Dose: 40 mg Fluticasone/Vilanterol [Breo Ellipta] 1 Puff 0 each INH DAILY [facility] Last Admin: 07/08/17 08:20 Dose: 1 each Levalbuterol Tartrate [Xopenex Hfa] 2 Puff 0 each INH QID PRN PRN Reason: shortness of breath Phenol/Menthol (Chloraseptic) 0 ml MUCMEM Q4HR PRN PRN Reason: Sore Throat Rosuvastatin Calcium (Crestor) 10 mg PO DAILY [facility] Last Admin: 07/08/17 08:39 Dose: 10 mg Senna/Docusate Sodium (Senna Plus) 1 tab PO BID [facility] Last Admin: 07/08/17 20:07 Dose: Not Given Senna/Docusate Sodium (Senna Plus) 1 tab PO DAILY PRN PRN Reason: Constipation Sodium Chloride (Saline Flush) 10 ml FLUSH ASDIRECTED PRN PRN Reason: Keep Vein Open Last Admin: 07/04/17 10:45 Dose: 10 ml Temazepam (Restoril) 7.5 mg PO BEDTIME PRN PRN Reason: Sleep Triamcinolone Acetonide (Triamcinolone Acetonide 0.1% Crm) 0 gm TOP DAILY PRN PRN Reason: Rash Discontinued Medications Albuterol/Ipratropium (Duoneb 3.0-0.5 Mg/3 Ml) 3 ml NEB ONETIME ONE Stop: 07/04/17 10:19 Last Admin: 07/04/17 10:49 Dose: 3 ml Albuterol/Ipratropium (Duoneb 3.0-0.5 Mg/3 Ml) 3 ml NEB ONETIME ONE Stop: 07/04/17 12:39 Last Admin: 07/04/17 12:53 Dose: 3 ml Albuterol/Ipratropium (Duoneb 3.0-0.5 Mg/3 Ml) 3 ml NEB ONETIME ONE Stop: 07/04/17 17:22 Last Admin: 07/04/17 17:27 Dose: 3 ml Albuterol/Ipratropium (Duoneb 3.0-0.5 Mg/3 Ml) Confirm Administered Dose 3 ml .ROUTE .STK-MED ONE Stop: 07/04/17 17:20 Last Admin: 07/04/17 17:27 Dose: Not Given Albuterol/Ipratropium (Duoneb 3.0-0.5 Mg/3 Ml) 3 ml NEB QID [facility] Enoxaparin Sodium (Lovenox) 80 mg SUBCUT DAILY [facility] Last Admin: 07/06/17 22:11 Dose: Not Given Furosemide (Lasix) 40 mg IVPUSH NOW ONE Stop: 07/04/17 10:20 Last Admin: 07/04/17 10:45 Dose: 40 mg Furosemide (Lasix) 40 mg IVPUSH BID [facility] Last Admin: 07/05/17 09:32 Dose: 40 mg Furosemide (Lasix) 20 mg IVPUSH BID [facility] Last Admin: 07/06/17 21:35 Dose: Not Given Furosemide (Lasix) 20 mg IVPUSH ONETIME ONE Stop: 07/06/17 12:01 Last Admin: 07/06/17 16:25 Dose: 20 mg Furosemide (Lasix) 20 mg IVPUSH BIDDIURETIC [facility] Last Admin: 07/07/17 06:49 Dose: 20 mg Sodium Chloride (Normal Saline) 1,000 mls @ 100 mls/hr IV ASDIRECTED [facility] Last Admin: 07/04/17 10:45 Dose: 100 mls/hr Levofloxacin/Dextrose 750 mg/ (Premix) 150 mls @ 100 mls/hr IV ONETIME ONE Stop: 07/04/17 13:30 Last Admin: 07/04/17 12:09 Dose: 100 mls/hr Vancomycin HCl 1 gm/ Sodium (Chloride) 250 mls @ 250 mls/hr IV ONETIME ONE Stop: 07/04/17 14:34 Last Admin: 07/04/17 14:04 Dose: 250 mls/hr Magnesium Sulfate 2 gm/ Premix 50 mls @ 25 mls/hr IV Q1H [facility] Stop: 07/04/17 19:44 Last Admin: 07/04/17 22:26 Dose: 25 mls/hr Vancomycin HCl 1 gm/ Sodium (Chloride) 250 mls @ 250 mls/hr IV Q24H [facility] Last Admin: 07/07/17 15:14 Dose: 250 mls/hr Sodium Chloride (Normal Saline) 1,000 mls @ 50 mls/hr IV ASDIRECTED [facility] Last Admin: 07/06/17 04:10 Dose: 50 mls/hr Magnesium Sulfate 2 gm/ Premix 50 mls @ 25 mls/hr IV ONETIME ONE Stop: 07/06/17 11:09 Last Admin: 07/06/17 10:15 Dose: 25 mls/hr Sodium Chloride (Normal Saline) 250 mls @ 100 mls/hr IV ASDIRECTED [facility] Stop: 07/06/17 14:44 Last Admin: 07/06/17 13:13 Dose: 100 mls/hr Magnesium Oxide (Magnesium Oxide) 400 mg PO ONETIME ONE Stop: 07/08/17 14:01 Last Admin: 07/08/17 15:21 Dose: 400 mg Non-Formulary Medication (Levalbuterol Tartrate [Xopenex Hfa]) 2 puff IH QID [facility] Non-Formulary Medication (Ticagrelor) 90 mg PO BID [facility] Last Admin: 07/06/17 10:28 Dose: Not Given Non-Formulary Medication (Fluticasone/Vilanterol) 1 puff IH DAILY [facility] Non-Formulary Medication (Levalbuterol Tartrate [Xopenex Hfa]) 2 puff INH QID PRN PRN Reason: sob Levalbuterol Tartrate [Xopenex Hfa] 2 Puff 0 puff IH QID [facility] Pantoprazole Sodium (Protonix) 40 mg PO DAILY [facility] Levalbuterol Tartrate [Xopenex Hfa] 2 Puff 0 each INH QID [facility] Last Admin: 07/05/17 09:58 Dose: Not Given Vancomycin HCl (Pharmacy To Dose - Vancomycin) 1 dose .XX ASDIRECTED [facility] - Exam General: Alert, Oriented HEENT: Pupils Equal, Pupils Reactive, EOMI, Mucous Membr. Moist/[place] Neck: Supple Lungs: Crackles (fine b/l) Cardiovascular: Regular Rate, Regular Rhythm GI/Abdominal Exam: Normal Bowel Sounds, Soft, Non-Tender, No Organomegaly, No Distention, No Abnormal Bruit, No Mass, Pelvis Stable Extremities: Normal Inspection, Normal Range of Motion, Non-Tender, No Pedal Edema, Normal Capillary Refill Skin: Warm, Dry, Intact - Problem List & Annotations (1) Congestive heart failure SNOMED Code(s): 30249791 Code(s): I50.9 - HEART FAILURE, UNSPECIFIED Status: Acute Priority: High Current Visit: Yes Qualifiers: Congestive heart failure type: unspecified congestive heart failure type Congestive heart failure chronicity: acute on chronic Qualified Code(s): I50.9 - Heart failure, unspecified (2) Febrile illness, acute SNOMED Code(s): 152184744 Code(s): R50.9 - FEVER, UNSPECIFIED Status: Acute Current Visit: Yes (3) Hypomagnesemia SNOMED Code(s): 633703617 Code(s): E83.42 - HYPOMAGNESEMIA Status: Acute Priority: High Current Visit: Yes (4) Hemiparesis affecting left side as late effect of cerebrovascular accident SNOMED Code(s): 107327456 Code(s): I69.354 - HEMIPLGA FOLLOWING CEREBRAL INFRC AFFECTING LEFT NONDOM SIDE Status: Chronic Priority: Low Current Visit: Yes - Problem List Review Problem List Initiated/Reviewed/Updated: Yes - My Orders Last 24 Hours: My Active Orders 07/08/17 09:00 Amoxicillin/Clavulanate K [Augmentin 875 MG/125 MG] 1 tab PO Q12HR Hydrochlorothiazide 12.5 mg PO DAILY Losartan [Cozaar] 100 mg PO DAILY 07/08/17 09:02 Ready for Discharge [RC] PER UNIT ROUTINE - Plan Plan:: I/P: Acute: CHF exacerbation HFpEF -Acute on chronic -Increased swelling in legs (3+) - Normally just feet but it has been getting progressively worse and is now up to knees -Was started on 20 mg Lasix daily after discharge for CVA -Family reports pt. was overloaded on fluid while in hospital and had to be aggressively diuresed -Echo was recently obtained at [place] in [place] - attempt to obtain -BNP 928 -[facility] to [facility] - good output now -Diuresis using caution as patient reportedly went into renal failure in [place] and was placed on bedside Dialysis. -Low sodium diet -remove Fluid restriction -07/05 her Cr went up slightly will decrease her lasix to 20 iv bid , 07/07 change to oral BID -Echo pending, waiting for old records -->both showed EF 60% with no diastolic dysfunction Acute on chronic anemia 2/2 chronic disease -will transfuse 1 unit of RBC 07/06 Acute febrile illness, most likely 2/2 wound infection in right groin, slight drainage -Low grade fever in ED and on floor -UA negative -WBC 12.43 -->resolved 06/05 -Neutrophils 73% -Lactic acid 0.7 -CRP 7.0 -CXR on 07/04/[address] Barron -1. Probable emphysematous change -2. Other findings which are likely incidental as described above -Pt. had some stridor, was recently intubated twice in ED; CT soft tissue neck obtained 07/04/17 - Incidental findings with nothing acute noted -Nebulizers as ordered -Influenza A&B ordered -->neg -Strep ordered -Mycoplasma pneumonia ordered - negative -Can consider respiratory panel -Tylenol as needed for fever -Continue to monitor -currently on empiric vancomycin -wound culture is pending , showed niranjan/E.F. will cover her with diflucan and augmentin Anxiety -On xanax 0.25 mg TID, started by PCP -Chemo consult ordered, no further testing now -Ativan PRN as ordered Hypomagnesemia -replace Failure to thrive as an adult -Family reports pt. returned from [place] and was placed in [facility] on -Family reports pt. has been primarily sedentary prior to stroke and rapidly deteriorating -There are concerns over patients nutritional status from family and medical providers -Albumin 2.7 -Anion gap 14.7 -Pured diet per SNF notes -Nursing reports no difficulty in drinking liquids. Normal liquid thickness per SNF notes. -Swallow evaluation -Dietary consult Thrombocytosis -Platelets 633,000 -1+ polychromasia -1+ Anisocytosis -Consider further workup, will await prior hospital notes Renal insufficiency, most likely CKD3 -Unsure of baseline - awaiting records from [facility] -Family reports pt. went into complete renal failure after CT contrast in [place] and was on Bedside dialysis -BUN 21 -Creatinine baseline 1.3-1.5 -eGFR 40 -Fluids with caution as worsening CHF -Continue to monitor Chronic: Anemia Hx/o CVA with left sided deficit - swallow study ordered, stable s/p B/L carotids stent s/p Fem-pop thrombelectomy right groin HLD HTN - Home medications and PRN as ordered COPD - Home medications as ordered Osteoperosis dispo: pt been DC but no bed available till tuesday or tuesday HOSPITAL STAY MORE THAN 96H 2/2 ACUTE CHF/anemia and wound infection
[2017-07-09] MEDS: VILANTEROL INH SCH (08:57)
[2017-07-09] MEDS: FLUTICASONE INH SCH (08:57)
[2017-07-09] MEDS: Losartan 100 MG Tab PO SCH (09:54)
[2017-07-09] MEDS: Fluconazole 100 MG Tab PO SCH (09:54)
[2017-07-09] MEDS: ALPRAZolam 0.25 MG Tab PO SCH ×3 (09:54→20:17)
[2017-07-09] MEDS: Amoxicillin/Clavulanate K 875-125 MG Tab PO SCH ×2 (09:54→20:16)
[2017-07-09] MEDS: Aspirin 81 MG Tab.Chew PO SCH (09:54)
[2017-07-09] MEDS: Hydrochlorothiazide 12.5 MG Cap PO SCH (09:54)
[2017-07-09] MEDS: Rosuvastatin 10 MG Tab PO SCH (09:55)
[2017-07-09] MEDS: Nicotine 7 MG/24 Hr Patch TRDERM SCH (09:55)
[2017-07-09] MEDS: Nystatin Topical Powder 15 GM Bottle TOP SCH ×3 (09:58→20:17)
[2017-07-09] MEDS ORDERED: Magnesium Sulfate/Water 4 GM in Premix Bag 1 BAG IV ONE (12:45)
[2017-07-09] MEDS: Magnesium Sulfate/Water 2 GM in Premix Bag 1 BAG IV SCH ×2 (13:32→15:25)
[2017-07-09] MEDS: Enoxaparin 80 MG/0.8 ML Syringe SUBCUT SCH (21:46)
[2017-07-10] MEDS: Acetaminophen 325 MG Tab PO PRN (05:10)
[2017-07-10] MEDS: Furosemide 20 MG Tab PO SCH ×2 (05:10→13:21)
[2017-07-10] MEDS: Pantoprazole 40 MG Tab.CR PO SCH (06:27)
[2017-07-10] MEDS: Albuterol/Ipratropium 3.0-0.5 MG/3 ML Neb Soln NEB SCH ×4 (06:29→21:04)
[2017-07-10] MEDS: Amoxicillin/Clavulanate K 875-125 MG Tab PO SCH ×2 (09:14→20:18)
[2017-07-10] MEDS: Losartan 100 MG Tab PO SCH (09:14)
[2017-07-10] MEDS: Nicotine 7 MG/24 Hr Patch TRDERM SCH (09:14)
[2017-07-10] MEDS: Hydrochlorothiazide 12.5 MG Cap PO SCH (09:15)
[2017-07-10] MEDS: ALPRAZolam 0.25 MG Tab PO SCH ×4 (09:15→20:18)
[2017-07-10] MEDS: Fluconazole 100 MG Tab PO SCH (09:15)
[2017-07-10] MEDS: Rosuvastatin 10 MG Tab PO SCH (09:15)
[2017-07-10] MEDS: Aspirin 81 MG Tab.Chew PO SCH (09:15)
[2017-07-10] MEDS: Nystatin Topical Powder 15 GM Bottle TOP SCH ×4 (09:17→20:18)
[2017-07-10] MEDS: FLUTICASONE INH SCH (09:42)
[2017-07-10] MEDS: VILANTEROL INH SCH (09:42)
--- NOTE | 2017-07-10 13:54 | PCM.PN ---
- General Info Date of Service: 07/10/17 Functional Status: Reports: Tolerating Diet - Review of Systems General: Reports: No Symptoms HEENT: Reports: No Symptoms Pulmonary: Reports: No Symptoms Cardiovascular: Reports: No Symptoms Gastrointestinal: Reports: No Symptoms Genitourinary: Reports: No Symptoms Musculoskeletal: Reports: No Symptoms Skin: Reports: No Symptoms Neurological: Reports: No Symptoms Psychiatric: Reports: No Symptoms - Patient Data Vitals - Most Recent: Last Vital Signs Temp 36.4 C 07/10/17 09:10 Pulse 85 07/10/17 09:10 Resp 16 07/10/17 09:10 BP 127/69 07/10/17 09:10 Pulse Ox 92 L 07/10/17 09:43 Weight - Most Recent: 71.894 kg I&O - Last 24 Hours: Intake & Output 07/09/17 07/10/17 07/10/17 22:59 06:59 14:59 Intake Total 1380 1000 180 Output Total 1000 750 Balance 380 250 180 Med Orders - Current: Current Medications Acetaminophen (Tylenol) 650 mg PO Q4H PRN PRN Reason: Pain (Mild 1-3)/fever Last Admin: 07/10/17 05:10 Dose: 650 mg Hydrocodone Bitart/Acetaminophen ([place] 325-5 Mg) 1 tab PO Q4H PRN PRN Reason: Pain (moderate 4-6) Albuterol/Ipratropium (Duoneb 3.0-0.5 Mg/3 Ml) 3 ml NEB QIDRT [facility] Last Admin: 07/10/17 09:41 Dose: 3 ml Alprazolam (Xanax) 0.25 mg PO TID [facility] Last Admin: 07/10/17 13:22 Dose: 0.25 mg Amoxicillin/Clavulanate Potassium (Augmentin 875 Mg/125 Mg) 1 tab PO Q12HR [facility] Last Admin: 07/10/17 09:14 Dose: 1 tab Aspirin (Aspirin) 81 mg PO DAILY [facility] Last Admin: 07/10/17 09:15 Dose: 81 mg Bisacodyl (Dulcolax) 10 mg RECTAL DAILY PRN PRN Reason: Constipation Enoxaparin Sodium (Lovenox) 80 mg SUBCUT Q24H [facility] Last Admin: 07/09/17 21:46 Dose: 80 mg Fluconazole (Diflucan) 100 mg PO DAILY [facility] Last Admin: 07/10/17 09:15 Dose: 100 mg Furosemide (Lasix) 20 mg PO BIDDIURETIC [facility] Last Admin: 07/10/17 13:21 Dose: 20 mg Hydralazine HCl (Apresoline) 10 mg PO Q6H PRN PRN Reason: Hypertension Hydrochlorothiazide (Hydrochlorothiazide) 12.5 mg PO DAILY [facility] Last Admin: 07/10/17 09:15 Dose: 12.5 mg Levalbuterol HCl (Xopenex) 1.25 mg NEB Q6HRRT PRN PRN Reason: Shortness of Breath Last Admin: 07/08/17 08:20 Dose: 1.25 mg Lorazepam (Ativan) 0.5 mg IVPUSH Q6H PRN PRN Reason: Anxiety Losartan Potassium (Cozaar) 100 mg PO DAILY [facility] Last Admin: 07/10/17 09:14 Dose: 100 mg Metoprolol Tartrate (Lopressor) 5 mg IVPUSH Q4H PRN PRN Reason: Tachycardia Miscellaneous Information (Remove Patch) 1 ea TRDERM DAILY [facility] Last Admin: 07/10/17 09:16 Dose: 1 ea Nicotine (Habitrol) 7 mg TRDERM DAILY [facility] Last Admin: 07/10/17 09:14 Dose: 7 mg Nystatin (Nystop) 1 gm TOP TID [facility] Last Admin: 07/10/17 13:22 Dose: 1 applic Ondansetron HCl (Zofran Odt) 4 mg PO Q6H PRN PRN Reason: nausea, able to take PO Ondansetron HCl (Zofran) 4 mg IV Q6H PRN PRN Reason: Nausea/Vomiting Pantoprazole Sodium (Protonix) 40 mg PO DAILY@0700 [facility] Last Admin: 07/10/17 06:27 Dose: 40 mg Fluticasone/Vilanterol [Breo Ellipta] 1 Puff 0 each INH DAILY [facility] Last Admin: 07/10/17 09:42 Dose: 1 each Levalbuterol Tartrate [Xopenex Hfa] 2 Puff 0 each INH QID PRN PRN Reason: shortness of breath Phenol/Menthol (Chloraseptic) 0 ml MUCMEM Q4HR PRN PRN Reason: Sore Throat Rosuvastatin Calcium (Crestor) 10 mg PO DAILY [facility] Last Admin: 07/10/17 09:15 Dose: 10 mg Senna/Docusate Sodium (Senna Plus) 1 tab PO BID [facility] Last Admin: 07/10/17 09:16 Dose: Not Given Senna/Docusate Sodium (Senna Plus) 1 tab PO DAILY PRN PRN Reason: Constipation Sodium Chloride (Saline Flush) 10 ml FLUSH ASDIRECTED PRN PRN Reason: Keep Vein Open Last Admin: 07/04/17 10:45 Dose: 10 ml Temazepam (Restoril) 7.5 mg PO BEDTIME PRN PRN Reason: Sleep Triamcinolone Acetonide (Triamcinolone Acetonide 0.1% Crm) 0 gm TOP DAILY PRN PRN Reason: Rash Discontinued Medications Albuterol/Ipratropium (Duoneb 3.0-0.5 Mg/3 Ml) 3 ml NEB ONETIME ONE Stop: 07/04/17 10:19 Last Admin: 07/04/17 10:49 Dose: 3 ml Albuterol/Ipratropium (Duoneb 3.0-0.5 Mg/3 Ml) 3 ml NEB ONETIME ONE Stop: 07/04/17 12:39 Last Admin: 07/04/17 12:53 Dose: 3 ml Albuterol/Ipratropium (Duoneb 3.0-0.5 Mg/3 Ml) 3 ml NEB ONETIME ONE Stop: 07/04/17 17:22 Last Admin: 07/04/17 17:27 Dose: 3 ml Albuterol/Ipratropium (Duoneb 3.0-0.5 Mg/3 Ml) Confirm Administered Dose 3 ml .ROUTE .STK-MED ONE Stop: 07/04/17 17:20 Last Admin: 07/04/17 17:27 Dose: Not Given Albuterol/Ipratropium (Duoneb 3.0-0.5 Mg/3 Ml) 3 ml NEB QID [facility] Enoxaparin Sodium (Lovenox) 80 mg SUBCUT DAILY [facility] Last Admin: 07/06/17 22:11 Dose: Not Given Furosemide (Lasix) 40 mg IVPUSH NOW ONE Stop: 07/04/17 10:20 Last Admin: 07/04/17 10:45 Dose: 40 mg Furosemide (Lasix) 40 mg IVPUSH BID [facility] Last Admin: 07/05/17 09:32 Dose: 40 mg Furosemide (Lasix) 20 mg IVPUSH BID [facility] Last Admin: 07/06/17 21:35 Dose: Not Given Furosemide (Lasix) 20 mg IVPUSH ONETIME ONE Stop: 07/06/17 12:01 Last Admin: 07/06/17 16:25 Dose: 20 mg Furosemide (Lasix) 20 mg IVPUSH BIDDIURETIC [facility] Last Admin: 07/07/17 06:49 Dose: 20 mg Sodium Chloride (Normal Saline) 1,000 mls @ 100 mls/hr IV ASDIRECTED [facility] Last Admin: 07/04/17 10:45 Dose: 100 mls/hr Levofloxacin/Dextrose 750 mg/ (Premix) 150 mls @ 100 mls/hr IV ONETIME ONE Stop: 07/04/17 13:30 Last Admin: 07/04/17 12:09 Dose: 100 mls/hr Vancomycin HCl 1 gm/ Sodium (Chloride) 250 mls @ 250 mls/hr IV ONETIME ONE Stop: 07/04/17 14:34 Last Admin: 07/04/17 14:04 Dose: 250 mls/hr Magnesium Sulfate 2 gm/ Premix 50 mls @ 25 mls/hr IV Q1H [facility] Stop: 07/04/17 19:44 Last Admin: 07/04/17 22:26 Dose: 25 mls/hr Vancomycin HCl 1 gm/ Sodium (Chloride) 250 mls @ 250 mls/hr IV Q24H [facility] Last Admin: 07/07/17 15:14 Dose: 250 mls/hr Sodium Chloride (Normal Saline) 1,000 mls @ 50 mls/hr IV ASDIRECTED [facility] Last Admin: 07/06/17 04:10 Dose: 50 mls/hr Magnesium Sulfate 2 gm/ Premix 50 mls @ 25 mls/hr IV ONETIME ONE Stop: 07/06/17 11:09 Last Admin: 07/06/17 10:15 Dose: 25 mls/hr Sodium Chloride (Normal Saline) 250 mls @ 100 mls/hr IV ASDIRECTED [facility] Stop: 07/06/17 14:44 Last Admin: 07/06/17 13:13 Dose: 100 mls/hr Magnesium Sulfate 4 gm/ Premix 100 mls @ 50 mls/hr IV ONETIME ONE Stop: 07/09/17 14:44 Last Admin: 07/09/17 13:34 Dose: Not Given Magnesium Sulfate 2 gm/ Premix 50 mls @ 50 mls/hr IV Q1H [facility] Stop: 07/09/17 14:59 Last Admin: 07/09/17 15:25 Dose: 50 mls/hr Magnesium Oxide (Magnesium Oxide) 400 mg PO ONETIME ONE Stop: 07/08/17 14:01 Last Admin: 07/08/17 15:21 Dose: 400 mg Non-Formulary Medication (Levalbuterol Tartrate [Xopenex Hfa]) 2 puff IH QID [facility] Non-Formulary Medication (Ticagrelor) 90 mg PO BID [facility] Last Admin: 07/06/17 10:28 Dose: Not Given Non-Formulary Medication (Fluticasone/Vilanterol) 1 puff IH DAILY [facility] Non-Formulary Medication (Levalbuterol Tartrate [Xopenex Hfa]) 2 puff INH QID PRN PRN Reason: sob Levalbuterol Tartrate [Xopenex Hfa] 2 Puff 0 puff IH QID [facility] Pantoprazole Sodium (Protonix) 40 mg PO DAILY [facility] Levalbuterol Tartrate [Xopenex Hfa] 2 Puff 0 each INH QID [facility] Last Admin: 07/05/17 09:58 Dose: Not Given Vancomycin HCl (Pharmacy To Dose - Vancomycin) 1 dose .XX ASDIRECTED [facility] - Exam Quality Assessment: DVT Prophylaxis General: Alert, Oriented, Cooperative, No Acute Distress HEENT: Pupils Equal, Pupils Reactive, EOMI Neck: Trachea Midline, No JVD Lungs: Normal Respiratory Effort Cardiovascular: Regular Rate GI/Abdominal Exam: Normal Bowel Sounds, Soft, Non-Tender, No Organomegaly, No Distention (Female) Exam: Deferred Back Exam: Normal Inspection Extremities: Normal Inspection Skin: Warm Neurological: No New Focal Deficit Psy/Mental Status: Alert, Normal Affect, Normal Mood - Problem List Review Problem List Initiated/Reviewed/Updated: Yes - Plan Plan:: I/P: Acute: CHF exacerbation HFpEF -Acute on chronic -Increased swelling in legs (3+) - Normally just feet but it has been getting progressively worse and is now up to knees -Was started on 20 mg Lasix daily after discharge for CVA -Family reports pt. was overloaded on fluid while in hospital and had to be aggressively diuresed -Echo was recently obtained at [place] in [place] - attempt to obtain -BNP 928 -[facility] to [facility] - good output now -Diuresis using caution as patient reportedly went into renal failure in [place] and was placed on bedside Dialysis. -Low sodium diet -remove Fluid restriction -07/05 her Cr went up slightly will decrease her lasix to 20 iv bid , 07/07 change to oral BID -Echo pending, waiting for old records -->both showed EF 60% with no diastolic dysfunction Acute on chronic anemia 2/2 chronic disease -will transfuse 1 unit of RBC 07/06 Acute febrile illness, most likely 2/2 wound infection in right groin, slight drainage -Low grade fever in ED and on floor -UA negative -WBC 12.43 -->resolved 06/05 -Neutrophils 73% -Lactic acid 0.7 -CRP 7.0 -CXR on 07/04/[address] Barron -1. Probable emphysematous change -2. Other findings which are likely incidental as described above -Pt. had some stridor, was recently intubated twice in ED; CT soft tissue neck obtained 07/04/17 - Incidental findings with nothing acute noted -Nebulizers as ordered -Influenza A&B ordered -->neg -Strep ordered -Mycoplasma pneumonia ordered - negative -Can consider respiratory panel -Tylenol as needed for fever -Continue to monitor -currently on empiric vancomycin -wound culture is pending , showed niranjan/E.F. will cover her with diflucan and augmentin Anxiety -On xanax 0.25 mg TID, started by PCP -Chemo consult ordered, no further testing now -Ativan PRN as ordered Hypomagnesemia -replace Failure to thrive as an adult -Family reports pt. returned from [place] and was placed in [facility] on -Family reports pt. has been primarily sedentary prior to stroke and rapidly deteriorating -There are concerns over patients nutritional status from family and medical providers -Albumin 2.7 -Anion gap 14.7 -Pured diet per SNF notes -Nursing reports no difficulty in drinking liquids. Normal liquid thickness per SNF notes. -Swallow evaluation -Dietary consult Thrombocytosis -Platelets 633,000 -1+ polychromasia -1+ Anisocytosis -Consider further workup, will await prior hospital notes Renal insufficiency, most likely CKD3 -Unsure of baseline - awaiting records from [facility] -Family reports pt. went into complete renal failure after CT contrast in [place] and was on Bedside dialysis -BUN 21 -Creatinine baseline 1.3-1.5 -eGFR 40 -Fluids with caution as worsening CHF -Continue to monitor Chronic: Anemia Hx/o CVA with left sided deficit - swallow study ordered, stable s/p B/L carotids stent s/p Fem-pop thrombelectomy right groin HLD HTN - Home medications and PRN as ordered COPD - Home medications as ordered Osteoperosis +++dispo: pt been DC but no bed available till Tuesday or Tuesday HOSPITAL STAY MORE THAN 96H 2/2 ACUTE CHF/anemia and wound infection
[2017-07-10] MEDS: Enoxaparin 80 MG/0.8 ML Syringe SUBCUT SCH (21:28)
[2017-07-11] MEDS: Albuterol/Ipratropium 3.0-0.5 MG/3 ML Neb Soln NEB SCH ×4 (06:10→21:26)
[2017-07-11] MEDS: Pantoprazole 40 MG Tab.CR PO SCH (09:07)
[2017-07-11] MEDS: Furosemide 20 MG Tab PO SCH ×2 (09:07→14:41)
[2017-07-11] MEDS: Nicotine 7 MG/24 Hr Patch TRDERM SCH (09:08)
[2017-07-11] MEDS: Aspirin 81 MG Tab.Chew PO SCH (09:11)
[2017-07-11] MEDS: Rosuvastatin 10 MG Tab PO SCH (09:11)
[2017-07-11] MEDS: ALPRAZolam 0.25 MG Tab PO SCH ×3 (09:11→20:48)
[2017-07-11] MEDS: Nystatin Topical Powder 15 GM Bottle TOP SCH ×3 (09:11→21:39)
[2017-07-11] MEDS: Fluconazole 100 MG Tab PO SCH (09:11)
[2017-07-11] MEDS: Hydrochlorothiazide 12.5 MG Cap PO SCH (09:11)
[2017-07-11] MEDS: Amoxicillin/Clavulanate K 875-125 MG Tab PO SCH ×2 (09:11→20:46)
[2017-07-11] MEDS: Losartan 100 MG Tab PO SCH (09:22)
[2017-07-11] MEDS: VILANTEROL INH SCH (10:16)
[2017-07-11] MEDS: FLUTICASONE INH SCH (10:16)
[2017-07-11] MEDS: Saccharomyces Boulardii (Probiotic) 250 MG Cap PO SCH ×2 (12:08→20:50)
--- NOTE | 2017-07-11 12:51 | PCM.PN ---
- General Info Date of Service: 07/11/17 Admission Dx/Problem (Free Text): Admission Diagnosis/Problem Admission Diagnosis/Problem CHF, Congestive heart failure Functional Status: Reports: Pain Controlled, Tolerating Diet, Ambulating, Urinating. Denies: New Symptoms - Review of Systems General: Reports: Weakness (generalized but improving). Denies: Fever HEENT: Denies: No Symptoms Pulmonary: Denies: No Symptoms Cardiovascular: Denies: No Symptoms Gastrointestinal: Denies: No Symptoms Musculoskeletal: Denies: No Symptoms - Patient Data Vitals - Most Recent: Last Vital Signs Temp 97.0 F 07/11/17 08:27 Pulse 92 07/11/17 08:28 Resp 18 07/11/17 08:27 BP 144/53 H 07/11/17 09:39 Pulse Ox 95 07/11/17 10:16 Weight - Most Recent: 157 lb 12.8 oz I&O - Last 24 Hours: Intake & Output 07/10/17 07/11/17 07/11/17 22:59 06:59 14:59 Intake Total 920 200 360 Output Total 600 350 Balance 320 -150 360 Lab Results Last 24 Hours: Laboratory Results - last 24 hr 07/11/17 07/11/17 Range/Units 08:10 08:10 WBC 5.65 (3.98-10.04) K/mm3 RBC 3.80 L (3.98-5.22) M/mm3 Hgb 11.0 L (11.2-15.7) gm/L Hct 35.5 (34.1-44.9) % MCV 93.4 (79.4-94.8) fl MCH 28.9 (25.6-32.2) pg MCHC 31.0 L (32.2-35.5) g/dl RDW Std Deviation 51.8 H (36.4-46.3) fL Plt Count 386 H (182-369) K/mm3 MPV 8.2 L (9.4-12.3) fl Neut % (Auto) 61.3 (34.0-71.1) % Lymph % (Auto) 16.1 L (19.3-51.7) % [place] % (Auto) 12.2 (4.7-12.5) % Eos % (Auto) 8.3 H (0.7-5.8) Baso % (Auto) 0.9 (0.1-1.2) % Neut # (Auto) 3.46 (1.56-6.13) K/mm3 Lymph # (Auto) 0.91 L (1.18-3.74) K/mm3 [place] # (Auto) 0.69 H (0.24-0.36) K/mm3 Eos # (Auto) 0.47 H (0.04-0.36) K/mm3 Baso # (Auto) 0.05 (0.01-0.08) K/mm3 Sodium 135 L (136-145) mEq/L Potassium 4.2 (3.5-5.1) mEq/L Chloride 101 (98-107) mEq/L Carbon Dioxide 27 (21-32) mEq/L Anion Gap 11.2 (5-15) BUN 17 (7-18) mg/dL Creatinine 1.4 H (0.55-1.02) mg/dL Est Cr Clr Drug Dosing 29.60 mL/min Estimated GFR (MDRD) 37 (>60) mL/min BUN/Creatinine Ratio 12.1 L (14-18) Glucose 107 (83-115) mg/dL Calcium 9.8 (8.5-10.1) mg/dL Med Orders - Current: Current Medications Acetaminophen (Tylenol) 650 mg PO Q4H PRN PRN Reason: Pain (Mild 1-3)/fever Last Admin: 07/10/17 05:10 Dose: 650 mg Hydrocodone Bitart/Acetaminophen ([place] 325-5 Mg) 1 tab PO Q4H PRN PRN Reason: Pain (moderate 4-6) Albuterol/Ipratropium (Duoneb 3.0-0.5 Mg/3 Ml) 3 ml NEB QIDRT [facility] Last Admin: 07/11/17 10:16 Dose: 3 ml Alprazolam (Xanax) 0.25 mg PO TID [facility] Last Admin: 07/11/17 09:11 Dose: 0.25 mg Amoxicillin/Clavulanate Potassium (Augmentin 875 Mg/125 Mg) 1 tab PO Q12HR [facility] Stop: 07/14/17 09:01 Last Admin: 07/11/17 09:11 Dose: 1 tab Aspirin (Aspirin) 81 mg PO DAILY [facility] Last Admin: 07/11/17 09:11 Dose: 81 mg Bisacodyl (Dulcolax) 10 mg RECTAL DAILY PRN PRN Reason: Constipation Enoxaparin Sodium (Lovenox) 80 mg SUBCUT Q24H [facility] Last Admin: 07/10/17 21:28 Dose: 80 mg Fluconazole (Diflucan) 100 mg PO DAILY [facility] Last Admin: 07/11/17 09:11 Dose: 100 mg Furosemide (Lasix) 20 mg PO BIDDIURETIC [facility] Last Admin: 07/11/17 09:07 Dose: 20 mg Hydralazine HCl (Apresoline) 10 mg PO Q6H PRN PRN Reason: Hypertension Hydrochlorothiazide (Hydrochlorothiazide) 12.5 mg PO DAILY [facility] Last Admin: 07/11/17 09:11 Dose: 12.5 mg Levalbuterol HCl (Xopenex) 1.25 mg NEB Q6HRRT PRN PRN Reason: Shortness of Breath Last Admin: 07/08/17 08:20 Dose: 1.25 mg Lorazepam (Ativan) 0.5 mg IVPUSH Q6H PRN PRN Reason: Anxiety Losartan Potassium (Cozaar) 100 mg PO DAILY [facility] Last Admin: 07/11/17 09:22 Dose: 100 mg Metoprolol Tartrate (Lopressor) 5 mg IVPUSH Q4H PRN PRN Reason: Tachycardia Miscellaneous Information (Remove Patch) 1 ea TRDERM DAILY [facility] Last Admin: 07/11/17 09:12 Dose: 1 ea Nicotine (Habitrol) 7 mg TRDERM DAILY [facility] Last Admin: 07/11/17 09:08 Dose: 7 mg Nystatin (Nystop) 1 gm TOP TID [facility] Stop: 07/20/17 21:01 Last Admin: 07/11/17 09:11 Dose: 1 applic Ondansetron HCl (Zofran Odt) 4 mg PO Q6H PRN PRN Reason: nausea, able to take PO Ondansetron HCl (Zofran) 4 mg IV Q6H PRN PRN Reason: Nausea/Vomiting Pantoprazole Sodium (Protonix) 40 mg PO DAILY@0700 [facility] Last Admin: 07/11/17 09:07 Dose: 40 mg Fluticasone/Vilanterol [Breo Ellipta] 1 Puff 0 each INH DAILY [facility] Last Admin: 07/11/17 10:16 Dose: 1 each Levalbuterol Tartrate [Xopenex Hfa] 2 Puff 0 each INH QID PRN PRN Reason: shortness of breath Phenol/Menthol (Chloraseptic) 0 ml MUCMEM Q4HR PRN PRN Reason: Sore Throat Rosuvastatin Calcium (Crestor) 10 mg PO DAILY [facility] Last Admin: 07/11/17 09:11 Dose: 10 mg Saccharomyces Boulardii (Florastor) 250 mg PO BID [facility] Last Admin: 07/11/17 12:08 Dose: 250 mg Senna/Docusate Sodium (Senna Plus) 1 tab PO BID [facility] Last Admin: 07/11/17 09:12 Dose: Not Given Senna/Docusate Sodium (Senna Plus) 1 tab PO DAILY PRN PRN Reason: Constipation Sodium Chloride (Saline Flush) 10 ml FLUSH ASDIRECTED PRN PRN Reason: Keep Vein Open Last Admin: 07/04/17 10:45 Dose: 10 ml Temazepam (Restoril) 7.5 mg PO BEDTIME PRN PRN Reason: Sleep Triamcinolone Acetonide (Triamcinolone Acetonide 0.1% Crm) 0 gm TOP DAILY PRN PRN Reason: Rash Discontinued Medications Albuterol/Ipratropium (Duoneb 3.0-0.5 Mg/3 Ml) 3 ml NEB ONETIME ONE Stop: 07/04/17 10:19 Last Admin: 07/04/17 10:49 Dose: 3 ml Albuterol/Ipratropium (Duoneb 3.0-0.5 Mg/3 Ml) 3 ml NEB ONETIME ONE Stop: 07/04/17 12:39 Last Admin: 07/04/17 12:53 Dose: 3 ml Albuterol/Ipratropium (Duoneb 3.0-0.5 Mg/3 Ml) 3 ml NEB ONETIME ONE Stop: 07/04/17 17:22 Last Admin: 07/04/17 17:27 Dose: 3 ml Albuterol/Ipratropium (Duoneb 3.0-0.5 Mg/3 Ml) Confirm Administered Dose 3 ml .ROUTE .STK-MED ONE Stop: 07/04/17 17:20 Last Admin: 07/04/17 17:27 Dose: Not Given Albuterol/Ipratropium (Duoneb 3.0-0.5 Mg/3 Ml) 3 ml NEB QID [facility] Enoxaparin Sodium (Lovenox) 80 mg SUBCUT DAILY [facility] Last Admin: 07/06/17 22:11 Dose: Not Given Furosemide (Lasix) 40 mg IVPUSH NOW ONE Stop: 07/04/17 10:20 Last Admin: 07/04/17 10:45 Dose: 40 mg Furosemide (Lasix) 40 mg IVPUSH BID [facility] Last Admin: 07/05/17 09:32 Dose: 40 mg Furosemide (Lasix) 20 mg IVPUSH BID [facility] Last Admin: 07/06/17 21:35 Dose: Not Given Furosemide (Lasix) 20 mg IVPUSH ONETIME ONE Stop: 07/06/17 12:01 Last Admin: 07/06/17 16:25 Dose: 20 mg Furosemide (Lasix) 20 mg IVPUSH BIDDIURETIC [facility] Last Admin: 07/07/17 06:49 Dose: 20 mg Sodium Chloride (Normal Saline) 1,000 mls @ 100 mls/hr IV ASDIRECTED [facility] Last Admin: 07/04/17 10:45 Dose: 100 mls/hr Levofloxacin/Dextrose 750 mg/ (Premix) 150 mls @ 100 mls/hr IV ONETIME ONE Stop: 07/04/17 13:30 Last Admin: 07/04/17 12:09 Dose: 100 mls/hr Vancomycin HCl 1 gm/ Sodium (Chloride) 250 mls @ 250 mls/hr IV ONETIME ONE Stop: 07/04/17 14:34 Last Admin: 07/04/17 14:04 Dose: 250 mls/hr Magnesium Sulfate 2 gm/ Premix 50 mls @ 25 mls/hr IV Q1H [facility] Stop: 07/04/17 19:44 Last Admin: 07/04/17 22:26 Dose: 25 mls/hr Vancomycin HCl 1 gm/ Sodium (Chloride) 250 mls @ 250 mls/hr IV Q24H [facility] Last Admin: 07/07/17 15:14 Dose: 250 mls/hr Sodium Chloride (Normal Saline) 1,000 mls @ 50 mls/hr IV ASDIRECTED [facility] Last Admin: 07/06/17 04:10 Dose: 50 mls/hr Magnesium Sulfate 2 gm/ Premix 50 mls @ 25 mls/hr IV ONETIME ONE Stop: 07/06/17 11:09 Last Admin: 07/06/17 10:15 Dose: 25 mls/hr Sodium Chloride (Normal Saline) 250 mls @ 100 mls/hr IV ASDIRECTED [facility] Stop: 07/06/17 14:44 Last Admin: 07/06/17 13:13 Dose: 100 mls/hr Magnesium Sulfate 4 gm/ Premix 100 mls @ 50 mls/hr IV ONETIME ONE Stop: 07/09/17 14:44 Last Admin: 07/09/17 13:34 Dose: Not Given Magnesium Sulfate 2 gm/ Premix 50 mls @ 50 mls/hr IV Q1H [facility] Stop: 07/09/17 14:59 Last Admin: 07/09/17 15:25 Dose: 50 mls/hr Magnesium Oxide (Magnesium Oxide) 400 mg PO ONETIME ONE Stop: 07/08/17 14:01 Last Admin: 07/08/17 15:21 Dose: 400 mg Non-Formulary Medication (Levalbuterol Tartrate [Xopenex Hfa]) 2 puff IH QID [facility] Non-Formulary Medication (Ticagrelor) 90 mg PO BID [facility] Last Admin: 07/06/17 10:28 Dose: Not Given Non-Formulary Medication (Fluticasone/Vilanterol) 1 puff IH DAILY [facility] Non-Formulary Medication (Levalbuterol Tartrate [Xopenex Hfa]) 2 puff INH QID PRN PRN Reason: sob Levalbuterol Tartrate [Xopenex Hfa] 2 Puff 0 puff IH QID [facility] Pantoprazole Sodium (Protonix) 40 mg PO DAILY [facility] Levalbuterol Tartrate [Xopenex Hfa] 2 Puff 0 each INH QID [facility] Last Admin: 07/05/17 09:58 Dose: Not Given Vancomycin HCl (Pharmacy To Dose - Vancomycin) 1 dose .XX ASDIRECTED [facility] - Exam Quality Assessment: DVT Prophylaxis General: Alert, Cooperative, No Acute Distress HEENT: Pupils Equal, EOMI, Mucous Membr. Moist/[employer] Neck: Supple Lungs: Clear to Auscultation, Normal Respiratory Effort Cardiovascular: Irregular Rhythm GI/Abdominal Exam: Normal Bowel Sounds, Soft, Non-Tender (Female) Exam: Normal External Exam Extremities: No Pedal Edema, Normal Capillary Refill Psy/Mental Status: Alert - Problem List Review Problem List Initiated/Reviewed/Updated: Yes - Plan Plan:: I/P: Acute: CHF exacerbation HFpEF---improved to resolved -Acute on chronic -Increased swelling in legs (3+) - Normally just feet but it has been getting progressively worse and is now up to knees -Was started on 20 mg Lasix daily after discharge for CVA -Family reports pt. 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 -Low sodium diet -remove Fluid restriction -Lasix 20mg PO BID-- stable -Echo with EF 60% with no diastolic dysfunction Acute on chronic anemia 2/2 chronic disease -- stable -will transfuse 1 unit ff RBC 07/06 -Hgb stable in the high 9 range -Cont to follow Acute febrile illness, most likely 2/2 wound infection in right groin, slight drainage --- Resolved -Low grade fever in ED and on floor -UA negative -WBC 12.43 -->resolved 06/05 -Lactic acid 0.7 -CRP 7.0 -CXR on 07/04/[address] Barron; 1. Probable emphysematous change 2. Other findings which are likely incidental as described above -Pt. had some stridor, was recently intubated twice in ED; CT soft tissue neck obtained 07/04/17 with Incidental findings with nothing acute noted -Nebulizers as ordered -Influenza A&B ordered -->neg -Strep ordered--> negative -Mycoplasma pneumonia ordered - negative -Tylenol as needed for fever -Continue to monitor -wound culture from groin incision site showed niranjan/E.F.; cover with diflucan and augmentin Anxiety--improved -On xanax 0.25 mg TID, started by PCP -Chmeo consult ordered, no further testing now - reports stable; this has triggered a level 2 screening for NH placement--awaiting screening results. -Ativan PRN as ordered Hypomagnesemia-resolved -replace Failure to thrive as an adult -Family reports pt. returned from [place] and was placed in [facility] on -Family reports pt. has been primarily sedentary prior to stroke and rapidly deteriorating -There are concerns over patients nutritional status from family and medical providers -Albumin 2.7 -Anion gap 14.7 -Pured diet per SNF notes -Nursing reports no difficulty in drinking liquids. Normal liquid thickness per SNF notes. -Swallow evaluation -Dietary consult Thrombocytosis--improved -Platelets 633,000 -1+ polychromasia -1+ Anisocytosis -Consider further workup, will await prior hospital notes Renal insufficiency, most likely CKD3--stable -Unsure of baseline - awaiting records from [facility] -Family reports pt. went into complete renal failure after CT contrast in [place] and was on Bedside dialysis -BUN 21 -Creatinine baseline 1.3-1.5 -eGFR 40 -Fluids with caution as worsening CHF -Continue to monitor Chronic: Anemia - stable as above Hx/o CVA with left sided deficit - swallow study ordered, stable s/p B/L [facility] in [place] s/p Fem-pop thrombelectomy right groin - with ? site infection, on augmentin as above. 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 PCP is Dr. Carter with [facility] in [place]
[2017-07-11] MEDS: Enoxaparin 80 MG/0.8 ML Syringe SUBCUT SCH (21:37)
[2017-07-12] MEDS: Albuterol/Ipratropium 3.0-0.5 MG/3 ML Neb Soln NEB SCH ×4 (06:20→21:29)
[2017-07-12] MEDS: Furosemide 20 MG Tab PO SCH ×2 (06:44→15:00)
[2017-07-12] MEDS: Pantoprazole 40 MG Tab.CR PO SCH (06:44)
[2017-07-12] MEDS: Amoxicillin/Clavulanate K 875-125 MG Tab PO SCH ×2 (08:42→20:59)
[2017-07-12] MEDS: Fluconazole 100 MG Tab PO SCH (08:42)
[2017-07-12] MEDS: Aspirin 81 MG Tab.Chew PO SCH (08:42)
[2017-07-12] MEDS: Rosuvastatin 10 MG Tab PO SCH (08:42)
[2017-07-12] MEDS: Hydrochlorothiazide 12.5 MG Cap PO SCH (08:42)
[2017-07-12] MEDS: Saccharomyces Boulardii (Probiotic) 250 MG Cap PO SCH ×2 (08:42→20:58)
[2017-07-12] MEDS: Nystatin Topical Powder 15 GM Bottle TOP SCH ×3 (08:43→20:58)
[2017-07-12] MEDS: Nicotine 7 MG/24 Hr Patch TRDERM SCH (08:43)
[2017-07-12] MEDS: ALPRAZolam 0.25 MG Tab PO SCH ×3 (08:44→20:59)
[2017-07-12] MEDS: Losartan 100 MG Tab PO SCH (08:44)
[2017-07-12] MEDS: VILANTEROL INH SCH (09:30)
[2017-07-12] MEDS: FLUTICASONE INH SCH (09:30)
[2017-07-12] MEDS: Enoxaparin 80 MG/0.8 ML Syringe SUBCUT SCH (21:00)
[2017-07-13] MEDS: Albuterol/Ipratropium 3.0-0.5 MG/3 ML Neb Soln NEB SCH ×2 (05:48→10:15)
[2017-07-13] MEDS: Furosemide 20 MG Tab PO SCH (06:30)
[2017-07-13] MEDS: Pantoprazole 40 MG Tab.CR PO SCH (06:30)
[2017-07-13] MEDS: Nystatin Topical Powder 15 GM Bottle TOP SCH (09:13)
[2017-07-13] MEDS: Amoxicillin/Clavulanate K 875-125 MG Tab PO SCH (09:16)
[2017-07-13] MEDS: Nicotine 7 MG/24 Hr Patch TRDERM SCH (09:16)
[2017-07-13] MEDS: Saccharomyces Boulardii (Probiotic) 250 MG Cap PO SCH (09:16)
[2017-07-13] MEDS: ALPRAZolam 0.25 MG Tab PO SCH (09:17)
[2017-07-13] MEDS: Hydrochlorothiazide 12.5 MG Cap PO SCH (09:17)
[2017-07-13] MEDS: Rosuvastatin 10 MG Tab PO SCH (09:17)
[2017-07-13] MEDS: Losartan 100 MG Tab PO SCH (09:17)
[2017-07-13] MEDS: Aspirin 81 MG Tab.Chew PO SCH (09:18)
[2017-07-13] MEDS: Fluconazole 100 MG Tab PO SCH (09:18)
[2017-07-13] MEDS: VILANTEROL INH SCH (10:21)
[2017-07-13] MEDS: FLUTICASONE INH SCH (10:21)
--- NOTE | 2017-07-13 11:57 | PCM.PN ---
- General Info Date of Service: 07/12/17 Functional Status: Reports: Tolerating Diet, Ambulating, Urinating - Review of Systems General: Reports: No Symptoms HEENT: Reports: No Symptoms Pulmonary: Reports: No Symptoms Cardiovascular: Reports: No Symptoms Gastrointestinal: Reports: No Symptoms Genitourinary: Reports: No Symptoms Musculoskeletal: Reports: No Symptoms - Patient Data Vitals - Most Recent: Last Vital Signs Temp 37.1 C 07/13/17 08:32 Pulse 90 07/13/17 08:32 Resp 20 07/13/17 08:32 BP 113/49 L 07/13/17 09:17 Pulse Ox 96 07/13/17 08:32 Weight - Most Recent: 72.484 kg I&O - Last 24 Hours: Intake & Output 07/12/17 07/13/17 07/13/17 22:59 06:59 14:59 Intake Total 1640 350 100 Balance 1640 350 100 Med Orders - Current: Current Medications Acetaminophen (Tylenol) 650 mg PO Q4H PRN PRN Reason: Pain (Mild 1-3)/fever Last Admin: 07/10/17 05:10 Dose: 650 mg Hydrocodone Bitart/Acetaminophen ([place] 325-5 Mg) 1 tab PO Q4H PRN PRN Reason: Pain (moderate 4-6) Albuterol/Ipratropium (Duoneb 3.0-0.5 Mg/3 Ml) 3 ml NEB QIDRT [facility] Last Admin: 07/13/17 10:15 Dose: 3 ml Alprazolam (Xanax) 0.25 mg PO TID [facility] Last Admin: 07/13/17 09:17 Dose: 0.25 mg Amoxicillin/Clavulanate Potassium (Augmentin 875 Mg/125 Mg) 1 tab PO Q12HR [facility] Stop: 07/14/17 09:01 Last Admin: 07/13/17 09:16 Dose: 1 tab Aspirin (Aspirin) 81 mg PO DAILY [facility] Last Admin: 07/13/17 09:18 Dose: 81 mg Bisacodyl (Dulcolax) 10 mg RECTAL DAILY PRN PRN Reason: Constipation Enoxaparin Sodium (Lovenox) 80 mg SUBCUT Q24H [facility] Stop: 07/24/17 22:01 Last Admin: 07/12/17 21:00 Dose: 80 mg Fluconazole (Diflucan) 100 mg PO DAILY [facility] Last Admin: 07/13/17 09:18 Dose: 100 mg Furosemide (Lasix) 20 mg PO BIDDIURETIC [facility] Last Admin: 07/13/17 06:30 Dose: 20 mg Hydralazine HCl (Apresoline) 10 mg PO Q6H PRN PRN Reason: Hypertension Hydrochlorothiazide (Hydrochlorothiazide) 12.5 mg PO DAILY [facility] Last Admin: 07/13/17 09:17 Dose: 12.5 mg Levalbuterol HCl (Xopenex) 1.25 mg NEB Q6HRRT PRN PRN Reason: Shortness of Breath Last Admin: 07/08/17 08:20 Dose: 1.25 mg Lorazepam (Ativan) 0.5 mg IVPUSH Q6H PRN PRN Reason: Anxiety Losartan Potassium (Cozaar) 100 mg PO DAILY [facility] Last Admin: 07/13/17 09:17 Dose: 100 mg Metoprolol Tartrate (Lopressor) 5 mg IVPUSH Q4H PRN PRN Reason: Tachycardia Miscellaneous Information (Remove Patch) 1 ea TRDERM DAILY [facility] Last Admin: 07/13/17 09:18 Dose: 1 ea Nicotine (Habitrol) 7 mg TRDERM DAILY [facility] Last Admin: 07/13/17 09:16 Dose: 7 mg Nystatin (Nystop) 1 gm TOP TID [facility] Stop: 07/20/17 21:01 Last Admin: 07/13/17 09:13 Dose: 1 applic Ondansetron HCl (Zofran Odt) 4 mg PO Q6H PRN PRN Reason: nausea, able to take PO Ondansetron HCl (Zofran) 4 mg IV Q6H PRN PRN Reason: Nausea/Vomiting Pantoprazole Sodium (Protonix) 40 mg PO DAILY@0700 [facility] Last Admin: 07/13/17 06:30 Dose: 40 mg Fluticasone/Vilanterol [Breo Ellipta] 1 Puff 0 each INH DAILY [facility] Last Admin: 07/13/17 10:21 Dose: 1 each Levalbuterol Tartrate [Xopenex Hfa] 2 Puff 0 each INH QID PRN PRN Reason: shortness of breath Phenol/Menthol (Chloraseptic) 0 ml MUCMEM Q4HR PRN PRN Reason: Sore Throat Rosuvastatin Calcium (Crestor) 10 mg PO DAILY [facility] Last Admin: 07/13/17 09:17 Dose: 10 mg Saccharomyces Boulardii (Florastor) 250 mg PO BID [facility] Last Admin: 07/13/17 09:16 Dose: 250 mg Senna/Docusate Sodium (Senna Plus) 1 tab PO BID [facility] Last Admin: 07/13/17 09:18 Dose: Not Given Senna/Docusate Sodium (Senna Plus) 1 tab PO DAILY PRN PRN Reason: Constipation Sodium Chloride (Saline Flush) 10 ml FLUSH ASDIRECTED PRN PRN Reason: Keep Vein Open Last Admin: 07/04/17 10:45 Dose: 10 ml Temazepam (Restoril) 7.5 mg PO BEDTIME PRN PRN Reason: Sleep Triamcinolone Acetonide (Triamcinolone Acetonide 0.1% Crm) 0 gm TOP DAILY PRN PRN Reason: Rash Discontinued Medications Albuterol/Ipratropium (Duoneb 3.0-0.5 Mg/3 Ml) 3 ml NEB ONETIME ONE Stop: 07/04/17 10:19 Last Admin: 07/04/17 10:49 Dose: 3 ml Albuterol/Ipratropium (Duoneb 3.0-0.5 Mg/3 Ml) 3 ml NEB ONETIME ONE Stop: 07/04/17 12:39 Last Admin: 07/04/17 12:53 Dose: 3 ml Albuterol/Ipratropium (Duoneb 3.0-0.5 Mg/3 Ml) 3 ml NEB ONETIME ONE Stop: 07/04/17 17:22 Last Admin: 07/04/17 17:27 Dose: 3 ml Albuterol/Ipratropium (Duoneb 3.0-0.5 Mg/3 Ml) Confirm Administered Dose 3 ml .ROUTE .STK-MED ONE Stop: 07/04/17 17:20 Last Admin: 07/04/17 17:27 Dose: Not Given Albuterol/Ipratropium (Duoneb 3.0-0.5 Mg/3 Ml) 3 ml NEB QID [facility] Enoxaparin Sodium (Lovenox) 80 mg SUBCUT DAILY [facility] Last Admin: 07/06/17 22:11 Dose: Not Given Enoxaparin Sodium (Lovenox) 80 mg SUBCUT Q24H [facility] Last Admin: 07/10/17 21:28 Dose: 80 mg Furosemide (Lasix) 40 mg IVPUSH NOW ONE Stop: 07/04/17 10:20 Last Admin: 07/04/17 10:45 Dose: 40 mg Furosemide (Lasix) 40 mg IVPUSH BID [facility] Last Admin: 07/05/17 09:32 Dose: 40 mg Furosemide (Lasix) 20 mg IVPUSH BID [facility] Last Admin: 07/06/17 21:35 Dose: Not Given Furosemide (Lasix) 20 mg IVPUSH ONETIME ONE Stop: 07/06/17 12:01 Last Admin: 07/06/17 16:25 Dose: 20 mg Furosemide (Lasix) 20 mg IVPUSH BIDDIURETIC [facility] Last Admin: 07/07/17 06:49 Dose: 20 mg Sodium Chloride (Normal Saline) 1,000 mls @ 100 mls/hr IV ASDIRECTED [facility] Last Admin: 07/04/17 10:45 Dose: 100 mls/hr Levofloxacin/Dextrose 750 mg/ (Premix) 150 mls @ 100 mls/hr IV ONETIME ONE Stop: 07/04/17 13:30 Last Admin: 07/04/17 12:09 Dose: 100 mls/hr Vancomycin HCl 1 gm/ Sodium (Chloride) 250 mls @ 250 mls/hr IV ONETIME ONE Stop: 07/04/17 14:34 Last Admin: 07/04/17 14:04 Dose: 250 mls/hr Magnesium Sulfate 2 gm/ Premix 50 mls @ 25 mls/hr IV Q1H [facility] Stop: 07/04/17 19:44 Last Admin: 07/04/17 22:26 Dose: 25 mls/hr Vancomycin HCl 1 gm/ Sodium (Chloride) 250 mls @ 250 mls/hr IV Q24H [facility] Last Admin: 07/07/17 15:14 Dose: 250 mls/hr Sodium Chloride (Normal Saline) 1,000 mls @ 50 mls/hr IV ASDIRECTED [facility] Last Admin: 07/06/17 04:10 Dose: 50 mls/hr Magnesium Sulfate 2 gm/ Premix 50 mls @ 25 mls/hr IV ONETIME ONE Stop: 07/06/17 11:09 Last Admin: 07/06/17 10:15 Dose: 25 mls/hr Sodium Chloride (Normal Saline) 250 mls @ 100 mls/hr IV ASDIRECTED [facility] Stop: 07/06/17 14:44 Last Admin: 07/06/17 13:13 Dose: 100 mls/hr Magnesium Sulfate 4 gm/ Premix 100 mls @ 50 mls/hr IV ONETIME ONE Stop: 07/09/17 14:44 Last Admin: 07/09/17 13:34 Dose: Not Given Magnesium Sulfate 2 gm/ Premix 50 mls @ 50 mls/hr IV Q1H [facility] Stop: 07/09/17 14:59 Last Admin: 07/09/17 15:25 Dose: 50 mls/hr Magnesium Oxide (Magnesium Oxide) 400 mg PO ONETIME ONE Stop: 07/08/17 14:01 Last Admin: 07/08/17 15:21 Dose: 400 mg Non-Formulary Medication (Levalbuterol Tartrate [Xopenex Hfa]) 2 puff IH QID [facility] Non-Formulary Medication (Ticagrelor) 90 mg PO BID [facility] Last Admin: 07/06/17 10:28 Dose: Not Given Non-Formulary Medication (Fluticasone/Vilanterol) 1 puff IH DAILY [facility] Non-Formulary Medication (Levalbuterol Tartrate [Xopenex Hfa]) 2 puff INH QID PRN PRN Reason: sob Levalbuterol Tartrate [Xopenex Hfa] 2 Puff 0 puff IH QID [facility] Pantoprazole Sodium (Protonix) 40 mg PO DAILY [facility] Levalbuterol Tartrate [Xopenex Hfa] 2 Puff 0 each INH QID [facility] Last Admin: 07/05/17 09:58 Dose: Not Given Vancomycin HCl (Pharmacy To Dose - Vancomycin) 1 dose .XX ASDIRECTED [facility] - Exam Quality Assessment: DVT Prophylaxis General: Alert, Oriented HEENT: Pupils Equal, Pupils Reactive, EOMI Neck: Supple, Trachea Midline Lungs: Normal Respiratory Effort Cardiovascular: Regular Rate GI/Abdominal Exam: Normal Bowel Sounds, Soft, Non-Tender, No Organomegaly, No Distention (Female) Exam: Deferred Back Exam: Normal Inspection Extremities: Normal Inspection Skin: Warm Neurological: No New Focal Deficit Psy/Mental Status: Alert, Normal Affect, Normal Mood - Problem List Review Problem List Initiated/Reviewed/Updated: Yes - Plan Plan:: I/P: Acute: CHF exacerbation HFpEF---improved to resolved -Acute on chronic -Increased swelling in legs (3+) - Normally just feet but it has been getting progressively worse and is now up to knees -Was started on 20 mg Lasix daily after discharge for CVA -Family reports pt. was overloaded on fluid while in hospital and had to be aggressively diuresed -Echo was recently obtained at [facility] in [place] - attempt to obtain -[facility] placed at senior living, [facility], has been DC'd here, voiding without difficulty -Diuresis using caution as patient reportedly went into renal failure in [place] and was placed on bedside Dialysis. -Low sodium diet -remove Fluid restriction -Lasix 20mg PO BID-- stable -Echo with EF 60% with no diastolic dysfunction Acute on chronic anemia 2/2 chronic disease -- stable -will transfuse 1 unit ff RBC 07/06 -Hgb stable in the high 9 range -Cont to follow Acute febrile illness, most likely 2/2 wound infection in right groin, slight drainage --- Resolved -Low grade fever in ED and on floor -UA negative -WBC 12.43 -->resolved 06/05 -Lactic acid 0.7 -CRP 7.0 -CXR on 07/04/[address] Barron; 1. Probable emphysematous change 2. Other findings which are likely incidental as described above -Pt. had some stridor, was recently intubated twice in ED; CT soft tissue neck obtained 07/04/17 with Incidental findings with nothing acute noted -Nebulizers as ordered -Influenza A&B ordered -->neg -Strep ordered--> negative -Mycoplasma pneumonia ordered - negative -Tylenol as needed for fever -Continue to monitor -wound culture from groin incision site showed niranjan/E.F.; cover with diflucan and augmentin Anxiety--improved -On xanax 0.25 mg TID, started by PCP -Chemo consult ordered, no further testing now - reports stable; this has triggered a level 2 screening for NH placement--awaiting screening results. -Ativan PRN as ordered Hypomagnesemia-resolved -replace Failure to thrive as an adult -Family reports pt. returned from [place] and was placed in [facility] on -Family reports pt. has been primarily sedentary prior to stroke and rapidly deteriorating -There are concerns over patients nutritional status from family and medical providers -Albumin 2.7 -Anion gap 14.7 -Pured diet per SNF notes -Nursing reports no difficulty in drinking liquids. Normal liquid thickness per SNF notes. -Swallow evaluation -Dietary consult Thrombocytosis--improved -Platelets 633,000 -1+ polychromasia -1+ Anisocytosis -Consider further workup, will await prior hospital notes Renal insufficiency, most likely CKD3--stable -Unsure of baseline - awaiting records from [facility] -Family reports pt. went into complete renal failure after CT contrast in [place] and was on Bedside dialysis -BUN 21 -Creatinine baseline 1.3-1.5 -eGFR 40 -Fluids with caution as worsening CHF -Continue to monitor Chronic: Anemia - stable as above Hx/o CVA with left sided deficit - swallow study ordered, stable s/p B/L CEA in [place] s/p Fem-pop thrombelectomy right groin - with ? site infection, on augmentin as above. 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 PCP is Dr. Carter with [facility] in [place]
--- NOTE | 2017-07-13 12:06 | PCM.PN ---
- General Info Date of Service: 07/12/17 Admission Dx/Problem (Free Text): Admission Diagnosis/Problem Admission Diagnosis/Problem CHF, Congestive heart failure Functional Status: Reports: Pain Controlled, Tolerating Diet, Ambulating, Urinating, New Symptoms - Review of Systems General: Reports: Weakness HEENT: Reports: No Symptoms Pulmonary: Reports: No Symptoms Cardiovascular: Reports: No Symptoms Gastrointestinal: Reports: No Symptoms Genitourinary: Reports: No Symptoms Musculoskeletal: Reports: No Symptoms Skin: Reports: No Symptoms Neurological: Reports: Difficulty Walking, Weakness, Gait Disturbance Psychiatric: Reports: No Symptoms - Patient Data Vitals - Most Recent: Last Vital Signs Temp 98.8 F 07/13/17 08:32 Pulse 90 07/13/17 08:32 Resp 20 07/13/17 08:32 BP 113/49 L 07/13/17 09:17 Pulse Ox 96 07/13/17 08:32 Weight - Most Recent: 159 lb 12.8 oz I&O - Last 24 Hours: Intake & Output 07/12/17 07/13/17 07/13/17 22:59 06:59 14:59 Intake Total 1640 350 100 Balance 1640 350 100 Med Orders - Current: Current Medications Acetaminophen (Tylenol) 650 mg PO Q4H PRN PRN Reason: Pain (Mild 1-3)/fever Last Admin: 07/10/17 05:10 Dose: 650 mg Hydrocodone Bitart/Acetaminophen ([place] 325-5 Mg) 1 tab PO Q4H PRN PRN Reason: Pain (moderate 4-6) Albuterol/Ipratropium (Duoneb 3.0-0.5 Mg/3 Ml) 3 ml NEB QIDRT [facility] Last Admin: 07/13/17 10:15 Dose: 3 ml Alprazolam (Xanax) 0.25 mg PO TID [facility] Last Admin: 07/13/17 09:17 Dose: 0.25 mg Amoxicillin/Clavulanate Potassium (Augmentin 875 Mg/125 Mg) 1 tab PO Q12HR [facility] Stop: 07/14/17 09:01 Last Admin: 07/13/17 09:16 Dose: 1 tab Aspirin (Aspirin) 81 mg PO DAILY [facility] Last Admin: 07/13/17 09:18 Dose: 81 mg Bisacodyl (Dulcolax) 10 mg RECTAL DAILY PRN PRN Reason: Constipation Enoxaparin Sodium (Lovenox) 80 mg SUBCUT Q24H [facility] Stop: 07/24/17 22:01 Last Admin: 07/12/17 21:00 Dose: 80 mg Fluconazole (Diflucan) 100 mg PO DAILY [facility] Last Admin: 07/13/17 09:18 Dose: 100 mg Furosemide (Lasix) 20 mg PO BIDDIURETIC [facility] Last Admin: 07/13/17 06:30 Dose: 20 mg Hydralazine HCl (Apresoline) 10 mg PO Q6H PRN PRN Reason: Hypertension Hydrochlorothiazide (Hydrochlorothiazide) 12.5 mg PO DAILY [facility] Last Admin: 07/13/17 09:17 Dose: 12.5 mg Levalbuterol HCl (Xopenex) 1.25 mg NEB Q6HRRT PRN PRN Reason: Shortness of Breath Last Admin: 07/08/17 08:20 Dose: 1.25 mg Lorazepam (Ativan) 0.5 mg IVPUSH Q6H PRN PRN Reason: Anxiety Losartan Potassium (Cozaar) 100 mg PO DAILY [facility] Last Admin: 07/13/17 09:17 Dose: 100 mg Metoprolol Tartrate (Lopressor) 5 mg IVPUSH Q4H PRN PRN Reason: Tachycardia Miscellaneous Information (Remove Patch) 1 ea TRDERM DAILY [facility] Last Admin: 07/13/17 09:18 Dose: 1 ea Nicotine (Habitrol) 7 mg TRDERM DAILY [facility] Last Admin: 07/13/17 09:16 Dose: 7 mg Nystatin (Nystop) 1 gm TOP TID [facility] Stop: 07/20/17 21:01 Last Admin: 07/13/17 09:13 Dose: 1 applic Ondansetron HCl (Zofran Odt) 4 mg PO Q6H PRN PRN Reason: nausea, able to take PO Ondansetron HCl (Zofran) 4 mg IV Q6H PRN PRN Reason: Nausea/Vomiting Pantoprazole Sodium (Protonix) 40 mg PO DAILY@0700 [facility] Last Admin: 07/13/17 06:30 Dose: 40 mg Fluticasone/Vilanterol [Breo Ellipta] 1 Puff 0 each INH DAILY [facility] Last Admin: 07/13/17 10:21 Dose: 1 each Levalbuterol Tartrate [Xopenex Hfa] 2 Puff 0 each INH QID PRN PRN Reason: shortness of breath Phenol/Menthol (Chloraseptic) 0 ml MUCMEM Q4HR PRN PRN Reason: Sore Throat Rosuvastatin Calcium (Crestor) 10 mg PO DAILY [facility] Last Admin: 07/13/17 09:17 Dose: 10 mg Saccharomyces Boulardii (Florastor) 250 mg PO BID [facility] Last Admin: 07/13/17 09:16 Dose: 250 mg Senna/Docusate Sodium (Senna Plus) 1 tab PO BID [facility] Last Admin: 07/13/17 09:18 Dose: Not Given Senna/Docusate Sodium (Senna Plus) 1 tab PO DAILY PRN PRN Reason: Constipation Sodium Chloride (Saline Flush) 10 ml FLUSH ASDIRECTED PRN PRN Reason: Keep Vein Open Last Admin: 07/04/17 10:45 Dose: 10 ml Temazepam (Restoril) 7.5 mg PO BEDTIME PRN PRN Reason: Sleep Triamcinolone Acetonide (Triamcinolone Acetonide 0.1% Crm) 0 gm TOP DAILY PRN PRN Reason: Rash Discontinued Medications Albuterol/Ipratropium (Duoneb 3.0-0.5 Mg/3 Ml) 3 ml NEB ONETIME ONE Stop: 07/04/17 10:19 Last Admin: 07/04/17 10:49 Dose: 3 ml Albuterol/Ipratropium (Duoneb 3.0-0.5 Mg/3 Ml) 3 ml NEB ONETIME ONE Stop: 07/04/17 12:39 Last Admin: 07/04/17 12:53 Dose: 3 ml Albuterol/Ipratropium (Duoneb 3.0-0.5 Mg/3 Ml) 3 ml NEB ONETIME ONE Stop: 07/04/17 17:22 Last Admin: 07/04/17 17:27 Dose: 3 ml Albuterol/Ipratropium (Duoneb 3.0-0.5 Mg/3 Ml) Confirm Administered Dose 3 ml .ROUTE .STK-MED ONE Stop: 07/04/17 17:20 Last Admin: 07/04/17 17:27 Dose: Not Given Albuterol/Ipratropium (Duoneb 3.0-0.5 Mg/3 Ml) 3 ml NEB QID MATT Enoxaparin Sodium (Lovenox) 80 mg SUBCUT DAILY [facility] Last Admin: 07/06/17 22:11 Dose: Not Given Enoxaparin Sodium (Lovenox) 80 mg SUBCUT Q24H [facility] Last Admin: 07/10/17 21:28 Dose: 80 mg Furosemide (Lasix) 40 mg IVPUSH NOW ONE Stop: 07/04/17 10:20 Last Admin: 07/04/17 10:45 Dose: 40 mg Furosemide (Lasix) 40 mg IVPUSH BID [facility] Last Admin: 07/05/17 09:32 Dose: 40 mg Furosemide (Lasix) 20 mg IVPUSH BID [facility] Last Admin: 07/06/17 21:35 Dose: Not Given Furosemide (Lasix) 20 mg IVPUSH ONETIME ONE Stop: 07/06/17 12:01 Last Admin: 07/06/17 16:25 Dose: 20 mg Furosemide (Lasix) 20 mg IVPUSH BIDDIURETIC [facility] Last Admin: 07/07/17 06:49 Dose: 20 mg Sodium Chloride (Normal Saline) 1,000 mls @ 100 mls/hr IV ASDIRECTED [facility] Last Admin: 07/04/17 10:45 Dose: 100 mls/hr Levofloxacin/Dextrose 750 mg/ (Premix) 150 mls @ 100 mls/hr IV ONETIME ONE Stop: 07/04/17 13:30 Last Admin: 07/04/17 12:09 Dose: 100 mls/hr Vancomycin HCl 1 gm/ Sodium (Chloride) 250 mls @ 250 mls/hr IV ONETIME ONE Stop: 07/04/17 14:34 Last Admin: 07/04/17 14:04 Dose: 250 mls/hr Magnesium Sulfate 2 gm/ Premix 50 mls @ 25 mls/hr IV Q1H [facility]ATT Stop: 07/04/17 19:44 Last Admin: 07/04/17 22:26 Dose: 25 mls/hr Vancomycin HCl 1 gm/ Sodium (Chloride) 250 mls @ 250 mls/hr IV Q24H [facility] Last Admin: 07/07/17 15:14 Dose: 250 mls/hr Sodium Chloride (Normal Saline) 1,000 mls @ 50 mls/hr IV ASDIRECTED [facility] Last Admin: 07/06/17 04:10 Dose: 50 mls/hr Magnesium Sulfate 2 gm/ Premix 50 mls @ 25 mls/hr IV ONETIME ONE Stop: 07/06/17 11:09 Last Admin: 07/06/17 10:15 Dose: 25 mls/hr Sodium Chloride (Normal Saline) 250 mls @ 100 mls/hr IV ASDIRECTED [facility] Stop: 07/06/17 14:44 Last Admin: 07/06/17 13:13 Dose: 100 mls/hr Magnesium Sulfate 4 gm/ Premix 100 mls @ 50 mls/hr IV ONETIME ONE Stop: 07/09/17 14:44 Last Admin: 07/09/17 13:34 Dose: Not Given Magnesium Sulfate 2 gm/ Premix 50 mls @ 50 mls/hr IV Q1H [facility] Stop: 07/09/17 14:59 Last Admin: 07/09/17 15:25 Dose: 50 mls/hr Magnesium Oxide (Magnesium Oxide) 400 mg PO ONETIME ONE Stop: 07/08/17 14:01 Last Admin: 07/08/17 15:21 Dose: 400 mg Non-Formulary Medication (Levalbuterol Tartrate [Xopenex Hfa]) 2 puff IH QID [facility] Non-Formulary Medication (Ticagrelor) 90 mg PO BID [facility] Last Admin: 07/06/17 10:28 Dose: Not Given Non-Formulary Medication (Fluticasone/Vilanterol) 1 puff IH DAILY [facility] Non-Formulary Medication (Levalbuterol Tartrate [Xopenex Hfa]) 2 puff INH QID PRN PRN Reason: sob Levalbuterol Tartrate [Xopenex Hfa] 2 Puff 0 puff IH QID [facility] Pantoprazole Sodium (Protonix) 40 mg PO DAILY [facility] Levalbuterol Tartrate [Xopenex Hfa] 2 Puff 0 each INH QID [facility] Last Admin: 07/05/17 09:58 Dose: Not Given Vancomycin HCl (Pharmacy To Dose - Vancomycin) 1 dose .XX ASDIRECTED [facility] - Exam Quality Assessment: DVT Prophylaxis General: Alert, Oriented, Cooperative, No Acute Distress HEENT: Pupils Equal, EOMI, Mucous Membr. Moist/[place] Neck: Supple Lungs: Clear to Auscultation, Normal Respiratory Effort Cardiovascular: Regular Rate, Regular Rhythm GI/Abdominal Exam: Normal Bowel Sounds, Soft, Non-Tender Extremities: Pedal Edema (trace) Neurological: Cranial Nerves Intact Psy/Mental Status: Alert, Normal Affect, Normal Mood - Problem List Review Problem List Initiated/Reviewed/Updated: Yes - My Orders Last 24 Hours: My Active Orders 07/13/17 12:04 Ready for Discharge [RC] PER UNIT ROUTINE - Plan Plan:: I/P: Acute: CHF exacerbation HFpEF---improved to resolved -Acute on chronic -Increased swelling in legs (3+) - Normally just feet but it has been getting progressively worse and is now up to knees -Was started on 20 mg Lasix daily after discharge for CVA -Family reports pt. was overloaded on fluid while in hospital and had to be aggressively diuresed -Echo was recently obtained at [facility] in [place] - attempt to obtain -[place] [facility] jail, [employer], has been DC'd here, voiding without difficulty -Diuresis using caution as patient reportedly went into renal failure in [place] and was placed on bedside Dialysis. -Low sodium diet -remove Fluid restriction -Lasix 20mg PO BID-- stable -Echo with EF 60% with no diastolic dysfunction Acute on chronic anemia 2/2 chronic disease -- stable -will transfuse 1 unit ff RBC 07/06 -Hgb stable in the high 9 range -Cont to follow Acute febrile illness, most likely 2/2 wound infection in right groin, slight drainage --- Resolved -Low grade fever in ED and on floor -UA negative -WBC 12.43 -->resolved 06/05 -Lactic acid 0.7 -CRP 7.0 -CXR on 07/04/[address] Barron; 1. Probable emphysematous change 2. Other findings which are likely incidental as described above -Pt. had some stridor, was recently intubated twice in ED; CT soft tissue neck obtained 07/04/17 with Incidental findings with nothing acute noted -Nebulizers as ordered -Influenza A&B ordered -->neg -Strep ordered--> negative -Mycoplasma pneumonia ordered - negative -Tylenol as needed for fever -Continue to monitor -wound culture from groin incision site showed niranjan/E.F.; cover with diflucan and augmentin Anxiety--improved -On xanax 0.25 mg TID, started by PCP -Chemo consult ordered, no further testing now - reports stable; this has triggered a level 2 screening for NH placement--awaiting screening results. -Ativan PRN as ordered Hypomagnesemia-resolved -replace Failure to thrive as an adult -Family reports pt. returned from [place] and was placed in [facility] on -Family reports pt. has been primarily sedentary prior to stroke and rapidly deteriorating -There are concerns over patients nutritional status from family and medical providers -Albumin 2.7 -Anion gap 14.7 -Pured diet per SNF notes -Nursing reports no difficulty in drinking liquids. Normal liquid thickness per SNF notes. -Swallow evaluation -Dietary consult Thrombocytosis--improved -Platelets 633,000 -1+ polychromasia -1+ Anisocytosis -Consider further workup, will await prior hospital notes Renal insufficiency, most likely CKD3--stable -Unsure of baseline - awaiting records from [facility] -Family reports pt. went into complete renal failure after CT contrast in [place] and was on Bedside dialysis -BUN 21 -Creatinine baseline 1.3-1.5 -eGFR 40 -Fluids with caution as worsening CHF -Continue to monitor Chronic: Anemia - stable as above Hx/o CVA with left sided deficit - swallow study ordered, stable s/p B/L CEA in [place] s/p Fem-pop thrombelectomy right groin - with ? site infection, on augmentin as above. 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 PCP is Dr. Carter with [facility] in [place]
[2017-07-13 14:09] VITALS: BP 132/57
== END 2017-07-13 13:58 | DRG 292 ==
LOC: JD.ED 09:26 → JD.MS 14:06 → UNDOADMIN 14:06 → JD.MS 14:24
PROVIDERS: ADMIT Internal Medicine; ATTEND Internal Medicine
PROC: 30233N1 Transfusion of Nonautologous Red Blood Cells into Peripheral Vein, Percutaneous Approach (ICD-10-PCS; principal; 2017-07-06)
DX: I13.0 Hypertensive heart and chronic kidney disease with heart failure and stage 1 through stage 4 chronic kidney disease, or unspecified chronic kidney disease (principal); I69.354 Hemiplegia and hemiparesis following cerebral infarction affecting left non-dominant side; I11.0 Hypertensive heart disease with heart failure; I50.9 Heart failure, unspecified; I69.398 Other sequelae of cerebral infarction; Z87.891 Personal history of nicotine dependence; E78.00 Pure hypercholesterolemia, unspecified; D64.9 Anemia, unspecified; N18.3 Chronic kidney disease, stage 3 (moderate); F41.9 Anxiety disorder, unspecified; R50.9 Fever, unspecified; R00.0 Tachycardia, unspecified; E78.5 Hyperlipidemia, unspecified; J44.9 Chronic obstructive pulmonary disease, unspecified; E83.42 Hypomagnesemia; D47.3 Essential (hemorrhagic) thrombocythemia; R62.7 Adult failure to thrive; M81.0 Age-related osteoporosis without current pathological fracture; R33.9 Retention of urine, unspecified; F29 Unspecified psychosis not due to a substance or known physiological condition; D63.8 Anemia in other chronic diseases classified elsewhere; R01.1 Cardiac murmur, unspecified; L08.9 Local infection of the skin and subcutaneous tissue, unspecified; Z74.01 Bed confinement status; Z88.8 Allergy status to other drugs, medicaments and biological substances; Z79.82 Long term (current) use of aspirin; Z79.899 Other long term (current) drug therapy
CPT/HCPCS: 36415; 71010; 80053; 81001; 82553; 83605; 83735; 83880; 84484; 85025; 85610; 86140; 87040 ×2; 87075; 87077; 87106; 87186; 87205; 87899; 93005; 94640 ×2; 96361; 96365; 96366; 96367; 96375; 99285; J1940; J1956; J3370; J7040; J7050 ×2; 36430; 70490; 70490-26; 80048; 86738; 86850; 86900; 86901; 86922; 87641; 87804; 92526-GN; 92610-GN; 93010; 93306; 94664; 94760; 94761; 97110-GO; 97110-GP; 97112-GP; 97116-GP; 97162-GP; 97165-GO; 97530-GO; 97530-GP; A9270-GY; J1650; J3475; J7612; P9016

== ENCOUNTER 2017-09-27 12:00 | Emergency (ER) | payer MEDICARE, OTHER ==
[2017-09-27] MEDS ORDERED: Sodium Chloride 0.9% 10 ML Syringe FLUSH PRN (13:11)
--- NOTE | 2017-09-27 13:20 | EDM.PDOC ---
ED HPI GENERAL MEDICAL PROBLEM - General Chief Complaint: Neuro Symptoms/Deficits Stated Complaint: HIGH BLOOD PRESSURE Time Seen by Provider: 09/27/17 12:46 Source of Information: Reports: Patient, Family History Limitations: Reports: No Limitations - History of Present Illness INITIAL COMMENTS - FREE TEXT/NARRATIVE: 72 y/o female who presents with family to the E.D. c/o increased swelling to lower legs/feet for the past 4-5 days. States has felt dizzy and weak at times. [facility] home health nurse checked bp today and found it to be elevated thus prompting evaluation in the E.D. Patient has history of CVA. CVA was Jun 2017. THey have noted increased swelling to her legs. R>L. She does wear compression stocking daily but admits she is sitting most days and thus increasing risk of developing swelling. She has history of CHF. Patient uses a walker to ambulate. They are concerned about the swelling. Denies any pain to the posterior aspect of her legs. Patient has history of anemia, cva, heart failure, anxiety, hyperlipidemia, htn , copd, pedal edema, and kidny disease. Current medicaiton: tramadol, cozaar, protonix, xopenex, lasix, lipitor, asa, xanax, zofran. - Related Data Allergies Allergy/AdvReac Type Severity Reaction Status Date / Time albuterol Allergy Tachycardia Verified 09/27/17 12:14 cefaclor Allergy Cannot Verified 07/04/17 09:38 Remember Home Meds: Home Meds ALPRAZolam [Xanax] 0.25 mg PO TID 07/04/17 [History] Acetaminophen [Acetaminophen Extra Strength] 1,000 mg PO Q6H PRN 07/04/17 [ History] Aspirin 81 mg PO DAILY 07/04/17 [History] Docusate Sodium/Sennosides [Senna Plus] 8.6 - 50 mg PO BID PRN 07/04/17 [History ] Levalbuterol Tartrate [Xopenex Hfa] 2 puff INH QID PRN 07/04/17 [History] Multivitamin with Minerals [Multiple Vitamin] 1 tab PO DAILY 07/04/17 [History] Nicotine [Nicotine Patch] 1 patch TD DAILY 07/04/17 [History] Pantoprazole [ProTONIX] 40 mg PO DAILY 07/04/17 [History] atorvaSTATin [Lipitor] 40 mg PO DAILY 07/04/17 [History] Furosemide [Lasix] 20 mg PO BIDDIURETIC tablet 07/08/17 [Rx] Fluticasone/Vilanterol [Breo Ellipta 100-25 MCG Inhalation Kit] 1 puff INH DAILY 09/27/17 [History] Losartan [Cozaar] 50 mg PO DAILY 09/27/17 [History] Ondansetron HCl [Zofran] 4 mg PO Q6H PRN 09/27/17 [History] traMADol [Ultram] 50 mg PO Q8H PRN 09/27/17 [History] Past Medical History HEENT History: Reports: Cataract, Impaired Vision Other HEENT History: wears eyeglasses Cardiovascular History: Reports: Heart Murmur, High Cholesterol, Hypertension, Other (See Below) Other Cardiovascular History: tachycardia Respiratory History: Reports: Bronchitis, Recurrent, COPD, Pneumonia, Recurrent Other Respiratory History: "has had pneumonia at least 3 times in her life" states her Gastrointestinal History: Reports: GERD Genitourinary History: Reports: Retention, Urinary, Other (See Below) Other Genitourinary History: kidney failure 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 spinal stenosis Neurological History: Reports: CVA Psychiatric History: Reports: Addiction, Anxiety Endocrine/Metabolic History: Reports: Diabetes, Type II Hematologic History: Reports: Anemia, Blood Transfusion(s) Immunologic History: Reports: None Oncologic (Cancer) History: Reports: None Dermatologic History: Reports: None Other Dermatologic History: dry scaley patch noted to LFA - Infectious Disease History Infectious Disease History: Reports: Chicken Pox, Measles, Mumps - Past Surgical History HEENT Surgical History: Reports: Adenoidectomy, Tonsillectomy Cardiovascular Surgical History: Reports: Carotid Endarterectomy, Carotid Stents GI Surgical History: Reports: Colonoscopy, EGD Female Surgical History: Reports: Tubal Ligation Social & Family History - Family History Family Medical History: Noncontributory - Tobacco Use Smoking Status *Q: Former Smoker Years of Tobacco use: 54 Packs/Tins Daily: 1 Used Tobacco, but Quit: Yes Month Tobacco Last Used: June Second Hand Smoke Exposure: No - Caffeine Use Caffeine Use: Reports: Soda - Recreational Drug Use Recreational Drug Use: No Drug Use in Last 12 Months: No - Living Situation & Occupation Living situation: Reports: , Extended Care Facility (Entered skilled nursing on July 01.) Occupation: Retired ED ROS GENERAL - Review of Systems Review Of Systems: See Below Constitutional: Reports: No Symptoms HEENT: Reports: No Symptoms Respiratory: Reports: Shortness of Breath (chronic, with exertion, copd) Cardiovascular: Reports: Edema. Denies: Chest Pain, Dyspnea on Exertion, Lightheadedness, Orthopnea, Palpitations, Syncope GI/Abdominal: Reports: No Symptoms : Reports: No Symptoms Musculoskeletal: Reports: No Symptoms Skin: Reports: No Symptoms Neurological: Reports: Dizziness (intermittent). Denies: Headache, Numbness, Syncope, Tingling, Difficulty Walking ED EXAM, GENERAL - Physical Exam Exam: See Below Exam Limited By: No Limitations General Appearance: Alert, WD/WN, No Apparent Distress Ears: Hearing Grossly Normal Nose: Normal Inspection Throat/Mouth: Normal Inspection, Normal Oropharynx, Normal Voice, No Airway Compromise Neck: Normal Inspection, Supple Respiratory/Chest: No Respiratory Distress, Lungs Clear, Normal Breath Sounds, No Accessory Muscle Use Cardiovascular: Normal Peripheral Pulses, Regular Rate, Rhythm, Systolic Murmur Peripheral Pulses: 4+: Radial (L), Radial (R) GI/Abdominal: Normal Bowel Sounds, Soft, Non-Tender, No Organomegaly, No Distention Back Exam: Normal Inspection. No: CVA Tenderness (L), CVA Tenderness (R) Extremities: Pedal Edema (1+ edema bilaterally, right is greater than left minimal difference, no pain with palpation of the posterior aspect of the legs or inguinal region.) Neurological: Alert, Oriented, CN II-XII Intact, Normal Cognition, No Motor/ Sensory Deficits Psychiatric: Normal Affect, Normal Mood Skin Exam: Warm, Dry, Intact, Normal Color, No Rash Course - Vital Signs Last Recorded V/S: Last Vital Signs Temp 97.4 F 09/27/17 12:00 Pulse 88 09/27/17 15:50 Resp 18 09/27/17 15:50 BP 163/60 H 09/27/17 15:50 Pulse Ox 97 09/27/17 15:50 - Orders/Labs/Meds Labs: Laboratory Tests 09/27/17 09/27/17 09/27/17 Range/Units 12:25 12:25 12:25 WBC 8.47 (3.98-10.04) K/mm3 RBC 4.16 (3.98-5.22) M/mm3 Hgb 12.3 (11.2-15.7) gm/L Hct 37.6 (34.1-44.9) % MCV 90.4 (79.4-94.8) fl MCH 29.6 (25.6-32.2) pg MCHC 32.7 (32.2-35.5) g/dl RDW Std Deviation 48.0 H (36.4-46.3) fL Plt Count 376 H (182-369) K/mm3 MPV 8.1 L (9.4-12.3) fl Neut % (Auto) 67.8 (34.0-71.1) % Lymph % (Auto) 18.1 L (19.3-51.7) % [place] % (Auto) 9.9 (4.7-12.5) % Eos % (Auto) 3.2 (0.7-5.8) Baso % (Auto) 0.4 (0.1-1.2) % Neut # (Auto) 5.75 (1.56-6.13) K/mm3 Lymph # (Auto) 1.53 (1.18-3.74) K/mm3 [place] # (Auto) 0.84 H (0.24-0.36) K/mm3 Eos # (Auto) 0.27 (0.04-0.36) K/mm3 Baso # (Auto) 0.03 (0.01-0.08) K/mm3 Sodium 138 (136-145) mEq/L Potassium 3.9 (3.5-5.1) mEq/L Chloride 101 (98-107) mEq/L Carbon Dioxide 23 (21-32) mEq/L Anion Gap 17.9 H (5-15) BUN 32 H (7-18) mg/dL Creatinine 1.6 H (0.55-1.02) mg/dL Est Cr Clr Drug Dosing 26.64 mL/min Estimated GFR (MDRD) 32 (>60) mL/min BUN/Creatinine Ratio 20.0 H (14-18) Glucose 142 H (83-115) mg/dL Calcium 9.4 (8.5-10.1) mg/dL Total Bilirubin 0.3 (0.2-1.0) mg/dL AST 18 (15-37) U/L ALT 34 (14-59) U/L Alkaline Phosphatase 199 H (46-116) U/L Troponin I < 0.017 (0.00-0.056) ng/mL C-Reactive Protein 0.8 (<1.0) mg/dL NT-Pro-B Natriuret Pep 118 (0-125) pg/mL Total Protein 7.9 (6.4-8.2) g/dl Albumin 3.6 (3.4-5.0) g/dl Globulin 4.3 gm/dL Albumin/Globulin Ratio 0.8 L (1-2) Meds: Medications Discontinued Medications Generic Name Dose Route Start Last Admin Trade Name Freq PRN Reason Stop Dose Admin Sodium Chloride 10 ml 09/27/17 13:11 09/27/17 12:30 Saline Flush FLUSH 10 ml ASDIRECTED PRN Administration Keep Vein Open - Re-Assessments/Exams Free Text/Narrative Re-Assessment/Exam: IV established. Initial labs and studies will include CBC, chem 14, proBNP, troponin, UA, chest x-ray one view, and EKG. Chest x-ray reviewed with no acute findings. Reviewed with Dr. allen. EKG sinus rhythm at a rate of [address] changes noted. Labs reviewed: CBC essentially normal. Chemistry panel revealed AG 17.9, creatinine 1.6, BUNs 32, glucose 142, alk phosphatase 199, troponin less than 0.017, CRP 0.8, and proBNP 118. BP continues to trend downward. 163/60. Shared results of the labs, EKG, and chest x-ray with family. No changes to medications will be prescribed at this time. I do believe onset of increased edema to the lower extremities is related to the intake of buttery popcorn and drinking few bottles of Coke. Patient also sits in a recliner with knees bent and does not elevate her legs on a regular basis. In addition she presents to the ED with no compression stockings in place. There is no pain along the posterior aspect of the leg concerning for DVT. There is bilateral edema to the lower extremities further reducing the likelihood of DVT. There is no signs of infection present. The right leg is mildly increased in comparison to the left. Discussed with the patient and family the patient should continue to eat a low- salt diet. Continue utilizing compression stockings on a daily basis. Elevate legs above the heart one hour in the morning and afternoon. Follow up with primary care provider this Tuesday or next Tuesday or Tuesday. Again will not increase her medications at this time. In addition advised the patient to check her blood pressure once daily, same time, same method, same arm, keep a log. Bring the log and blood pressure machine with her in the next clinic appointment for review. The patient along with daughter voiced understanding. There are no questions or concerns. Departure - Departure Time of Disposition: 15:20 Disposition: Home, Self-Care 01 Condition: Good Clinical Impression: Pedal edema, Kidney disease HTN (hypertension) Qualifiers: Hypertension type: unspecified Qualified Code(s): I10 - Essential (primary) hypertension Instructions: Hypertension, [id number], Chronic Kidney Disease, Adult Referrals: Que Carter MD [Primary Care Provider] - Forms: ED Department Discharge Additional Instructions: Continue to eat a low-salt diet. Continue utilizing compression stockings on a daily basis. Elevate legs above the heart one hour in the morning and afternoon. Follow up with primary care provider this Tuesday or next Tuesday/ Tuesday. Again will not increase your medications at this time. Check blood pressure once daily, same time, same method, same arm, keep a log. Bring the log and blood pressure machine with you to the next clinic appointment for review. Return to the E.D. if you develop any new or worsening symptoms.
[2017-09-27 19:48] VITALS: BP 163/60
--- NOTE | 2017-09-28 08:46 | CR ---
Chest: Portable view of the chest was obtained. Comparison: Prior chest x-ray of 07/04/17. Heart size and mediastinum are normal for portable technique. Parenchymal density is seen within the left mid lung which appears stable from prior exam but better seen currently due to technique. This may represent an area of pleural thickening. Lungs otherwise are clear. Bony structures are grossly intact. Impression: 1. Parenchymal density within the left chest possibly due to pleural thickening. This is seen on prior study and appears stable although recommend noncontrast chest CT to confirm that this is due to pleural thickening. 2. Nothing acute is otherwise seen. Diagnostic code #9
== END 2017-09-27 15:50 | disposition home or self-care (01) ==
LOC: JD.ED 12:00
DX: I11.0 Hypertensive heart disease with heart failure (principal); I50.9 Heart failure, unspecified; N28.9 Disorder of kidney and ureter, unspecified; J44.9 Chronic obstructive pulmonary disease, unspecified; E78.00 Pure hypercholesterolemia, unspecified; E11.9 Type 2 diabetes mellitus without complications; Z86.73 Personal history of transient ischemic attack (TIA), and cerebral infarction without residual deficits; Z88.8 Allergy status to other drugs, medicaments and biological substances; Z88.1 Allergy status to other antibiotic agents; Z79.82 Long term (current) use of aspirin; Z87.891 Personal history of nicotine dependence
CPT/HCPCS: 36415; 71045; 80053; 83880; 84484; 85025; 86140; 93005; 99285; J7050; 99284

== ENCOUNTER 2020-07-21 09:19 | Observation (INO) | payer MEDICARE, OTHER ==
--- NOTE | 2020-07-21 11:19 | EDM.PDOC ---
ED HPI GENERAL MEDICAL PROBLEM - General Chief Complaint: Lower Extremity Injury/Pain Stated Complaint: L HIP INJURY Time Seen by Provider: 07/21/20 10:25 Source of Information: Reports: Patient History Limitations: Reports: No Limitations - History of Present Illness INITIAL COMMENTS - FREE TEXT/NARRATIVE: Patient to the emergency department with complaints of left hip pain with associated popping sound that happened just prior to the arrival. Patient states that she has a history of a hairline fracture to her pelvis that she sustained after stepping wrong out of her camper late this summer. She does not know the exact dates she does know that it was a few months ago. Patient states she was supposed to start physical therapy regarding this however her recently and she has been dealing with arrangements etc. and has not been able to start therapies. She states that she was making the bed this morning and was reaching and heard a popping and snapping noise to her left hip and now she is unable to bear any weight to the left hip. Left Hip Pain Score (Numeric/FACES): 8 - Related Data Allergies Allergy/AdvReac Type Severity Reaction Status Date / Time albuterol Allergy Tachycardia Verified 07/21/20 10:27 cefaclor Allergy Cannot Verified 07/21/20 10:27 Remember Home Meds: Home Meds ALPRAZolam [Xanax] 0.25 mg PO TID 07/04/17 [History] Acetaminophen [Acetaminophen Extra Strength] 1,000 mg PO Q6H PRN 07/04/17 [History] Aspirin 81 mg PO DAILY 07/04/17 [History] Docusate Sodium/Sennosides [Senna Plus] 8.6 - 50 mg PO BID PRN 07/04/17 [History] Levalbuterol Tartrate [Xopenex Hfa] 2 puff INH QID PRN 07/04/17 [History] Multivitamin with Minerals [Multiple Vitamin] 1 tab PO DAILY 07/04/17 [History] Nicotine [Nicotine Patch] 1 patch TD DAILY 07/04/17 [History] Pantoprazole [ProTONIX] 40 mg PO DAILY 07/04/17 [History] atorvaSTATin [Lipitor] 40 mg PO DAILY 07/04/17 [History] Furosemide [Lasix] 20 mg PO BIDDIURETIC tablet 07/08/17 [Rx] Fluticasone/Vilanterol [Breo Ellipta 100-25 MCG Inhalation Kit] 1 puff INH DAILY 09/27/17 [History] Losartan [Cozaar] 50 mg PO DAILY 09/27/17 [History] ondansetron HCL [Zofran] 4 mg PO Q6H PRN 09/27/17 [History] traMADol [Ultram] 50 mg PO Q8H PRN 09/27/17 [History] Folic Acid/Mv,Iron,Min/Lutein [Certa Plus] 1 tab PO DAILY 05/12/18 [History] Gabapentin [Neurontin] 100 mg PO ASDIRECTED #30 capsule 05/12/18 [Rx] Levothyroxine [Synthroid] 50 mcg PO ACBREAKFAST 05/12/18 [History] amLODIPine [Norvasc] 1 tab PO DAILY 05/12/18 [History] valACYclovir HCl [valACYclovir] 1,000 mg PO TID #21 tablet 05/12/18 [Rx] Past Medical History HEENT History: Reports: Cataract, Impaired Vision Other HEENT History: wears eyeglasses Cardiovascular History: Reports: Heart Murmur, High Cholesterol, Hypertension, Other (See Below) Other Cardiovascular History: tachycardia Respiratory History: Reports: Bronchitis, Recurrent, COPD, Pneumonia, Recurrent Other Respiratory History: "has had pneumonia at least 3 times in her life" states her Gastrointestinal History: Reports: GERD Genitourinary History: Reports: Retention, Urinary, Other (See Below) Other Genitourinary History: kidney failure RN SCHOOL History: Reports: Musculoskeletal History: Reports: Back Pain, Chronic, Osteoporosis, Other (See Below) Other Musculoskeletal History: ?? spinal stenosis Neurological History: Reports: CVA Psychiatric History: Reports: Addiction, Anxiety Endocrine/Metabolic History: Reports: Diabetes, Type II Hematologic History: Reports: Anemia, Blood Transfusion(s) Immunologic History: Reports: None Oncologic (Cancer) History: Reports: None Dermatologic History: Reports: None Other Dermatologic History: dry scaley patch noted to LFA - Infectious Disease History Infectious Disease History: Reports: Chicken Pox, Measles, Mumps, Shingles - Past Surgical History HEENT Surgical History: Reports: Adenoidectomy, Tonsillectomy Cardiovascular Surgical History: Reports: Carotid Endarterectomy, Carotid Stents 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 GI Surgical History: Reports: Colonoscopy, EGD Female Surgical History: Reports: Tubal Ligation Endocrine Surgical History: Reports: None Social & Family History - Family History Family Medical History: No Pertinent Family History - Tobacco Use Tobacco Use Status *Q: Former Tobacco User Used Tobacco, but Quit: Yes Month/Year Tobacco Last Used: 08/2016 - Caffeine Use Caffeine Use: Reports: None - Recreational Drug Use Recreational Drug Use: No - Living Situation & Occupation Living situation: Reports: , Extended Care Facility (Entered [facility] on July 01.) Occupation: Retired Review of Systems - Review of Systems Review Of Systems: See Below Constitutional: Reports: No Symptoms Eyes: Reports: No Symptoms Ears: Reports: No Symptoms Nose: Reports: No Symptoms Mouth/Throat: Reports: No Symptoms Respiratory: Reports: No Symptoms Cardiovascular: Reports: No Symptoms GI/Abdominal: Reports: No Symptoms Genitourinary: Reports: No Symptoms Musculoskeletal: Reports: Other (Left hip pain) Skin: Reports: No Symptoms Neurological: Reports: No Symptoms Psychiatric: Reports: No Symptoms ED EXAM, GENERAL - Physical Exam Exam: See Below Exam Limited By: No Limitations General Appearance: Alert, WD/WN, No Apparent Distress Eye Exam: Bilateral Eye: PERRL Ears: Normal External Exam, Hearing Grossly Normal Nose: Normal Inspection Throat/Mouth: Normal Voice, No Airway Compromise Head: Atraumatic, Normocephalic Neck: Normal Inspection, Supple, Non-Tender, Full Range of Motion Respiratory/Chest: No Respiratory Distress, Lungs Clear, Normal Breath Sounds, Chest Non-Tender Cardiovascular: Normal Peripheral Pulses, Regular Rate, Rhythm, No Edema, No Murmur Peripheral Pulses: 2+: Radial (L), Radial (R), Dorsalis Pedis (L), Dorsalis Pedis (R) GI/Abdominal: Normal Bowel Sounds, Soft, Non-Tender, No Distention (Female) Exam: Deferred Rectal (Female) Exam: Deferred Back Exam: Normal Inspection, Full Range of Motion Extremities: Normal Inspection, Normal Range of Motion, Non-Tender, No Pedal Edema, Normal Capillary Refill Course - Vital Signs Text/Narrative:: 74-year-old female presents to the emergency department complaints of left hip pain associated with a popping and cracking that she heard and felt this morning when she was leaning over to make her bed. Patient was unable to bear weight after this episode occurred. Patient states she has a history of a hairline fracture to her pelvis that she sustained this summer when stepping wrong out of her camper. This occurred a few months ago however she has not been able to fulfill her commitment to physical therapy as a result of her passing away recently. Patient is unable to bear weight since this episode occurred. Assessment is unremarkable other than left hip pain when attempting to stand. CMS is positive to left lower extremity. She is able to wiggle her toes and feel me touch. States she does not have pain when laying still in bed. I will order a left hip x-ray on the patient. Of note, patient has been seeing Dr. Carmichael in regards to left hip injury. Last Recorded V/S: Last Vital Signs Temp 98.4 F 07/21/20 10:19 Pulse 75 07/21/20 10:19 Resp 16 07/21/20 10:19 BP 150/33 H 07/21/20 10:19 Pulse Ox 98 07/21/20 10:19 - Radiology Interpretation Free Text/Narrative:: Pelvis and left hip x-ray show healing fractures within the superior and inferior pubic ramus on the right side. Mild joint space narrowing within the right hip. No radiographic evidence seen in the left hip therefore I ordered CT of the pelvis. Radiologist impression CT of the pelvis: 1. Nondisplaced fractures within the superior and inferior pubic ramus on the left side. 2 more noticeable fractures in similar locations on the right side showing no bridging callus. 3. Mild joint space narrowing within the right hip as well as within the apophyseal joints at L5-S1. CT Results Date: 07/21/20 CT Results Time: 11:56 - Re-Assessments/Exams Free Text/Narrative Re-Assessment/Exam: 07/21/20 12:[address] Bruno regarding CT of the pelvis. He states that there is nothing surgical at this time. That the patient needs physical therapy and pain control. I phoned Dr. Watson and he agreed to take the patient as an admit for physical therapy and pain control. Departure - Departure Time of Disposition: 12:47 Disposition: Refer to Observation Condition: Good Clinical Impression: Pelvic fracture Qualifiers: Encounter type: initial encounter Pelvic bone location: ischium Fracture type: closed Fracture morphology: unspecified fracture morphology Fracture alignment: nondisplaced Laterality: left Qualified Code(s): S32.602A - Unspecified fracture of left ischium, initial encounter for closed fracture - Discharge Information Referrals: Que Carter MD [Primary Care Provider] - Forms: ED Department Discharge Additional Instructions: Patient will be admitted to the floor observation status Dr. Cui accepting Sepsis Event Note (ED) - Evaluation Sepsis Screening Result: No Definite Risk - Focused Exam Vital Signs: Vital Signs Temp Pulse Resp BP Pulse Ox 07/21/20 10:19 98.4 F 75 16 150/33 H 98
--- NOTE | 2020-07-21 11:54 | CR ---
Pelvis and left hip: AP view of the pelvis was obtained as well as AP and frog leg lateral views left hip and crosstable lateral views of the left hip. Comparison: No prior hip exam is available. Findings: Mild joint space narrowing is seen within the right hip. Several surgical clips are seen overlying the right hip. Old healing fractures are noted within the right superior and inferior pubic ramus. Left hip appears within normal limits. No acute fracture or other abnormality is appreciated. Impression: 1. Healing fractures within the superior and inferior pubic ramus on the right side. 2. Mild joint space narrowing within the right hip. 3. No radiographic abnormality is seen within the left hip. Diagnostic code #3
--- NOTE | 2020-07-21 12:07 | CT ---
CT pelvis Technique: Multiple axial sections through the pelvis were obtained. Reconstructed coronal and sagittal images were also obtained. Findings: Fractures are seen within the superior and inferior pubic ramus on the right side. On the axial views there is no definite bridging callus being seen. Additional fracture is seen showing no displacement within the inferior left pubic ramus. Nondisplaced fracture is also felt to be present within the superior left pubic ramus. Joint space narrowing is noted within the right hip. No joint space narrowing is seen within the left hip. Degenerative change is noted within the apophyseal joints at L5-S1. Impression: 1. Nondisplaced fractures within the superior and inferior pubic ramus on the left side. 2. More noticeable fractures in similar locations on the right side showing no bridging callus. 3. Mild joint space narrowing within the right hip as well as within the apophyseal joints at L5-S1. Diagnostic code #3
[2020-07-21] MEDS ORDERED: Acetaminophen 325 MG Tab PO PRN ×2 (13:39→20:12)
[2020-07-21] MEDS ORDERED: Morphine 2 MG/ML SYRINGE IVPUSH PRN (13:39)
[2020-07-21] MEDS ORDERED: Acetaminophen/HYDROcodone 325-5 MG Tab PO PRN (13:39)
[2020-07-21] MEDS ORDERED: Ondansetron 4 MG/2 ML SDV IV PRN (13:39)
[2020-07-21] MEDS ORDERED: Non-Formulary Medication 1 Each (Levalbuterol Tartrate [Xopenex Hfa] 2 PUFF) INH PRN (13:41)
[2020-07-21] MEDS ORDERED: Non-Formulary Medication 1 Each (Ondansetron Hcl 4 MG) PO PRN (13:41)
[2020-07-21 14:51] LABS: CORONAVIRUS COVID-19 NAA NEGATIVE (NEGATIVE)
[2020-07-21] MEDS: Furosemide 20 MG Tab PO SCH (16:42)
[2020-07-21] MEDS: ALPRAZolam 0.25 MG Tab PO SCH (16:42)
[2020-07-21] MEDS: Magnesium Oxide 400 MG Tab PO SCH ×2 (16:42→22:03)
--- NOTE | 2020-07-21 17:19 | PCM.HP.2 ---
H&P History of Present Illness - General Date of Service: 07/21/20 Admit Problem/Dx: Admission Diagnosis/Problem Admission Diagnosis/Problem Fracture of pelvis Source of Information: Patient, Family, Old Records, Provider History Limitations: Reports: Physical Impairment - History of Present Illness Initial Comments - Free Text/Narative: This is a 74 yo pleasant elderly white female with past medical hx/o Impaired Vision, HTN, HLD, Heart Murmur, COPD, Recurrent PNA, GERD, Urinary Retention, Chronic Back Pain, Osteoporosis, Hx/o CVA, DM2-diet controlled, Hx/o Anemia Requ iring Blood Transfusion, Former Smoker, Hx/o Pelvic Fractures who comes in for further evaluation of left hip pain. She states she was making her bed today when her left foot turned outward then heard a "popping sound". She thought she may broken a bone and she was unable to bear weight to her left hip. She denies any preceding symptoms. No head trauma or fall. No loss of bowel or bladder incontinence. She is voiding and passing gas. No paresthesia in her groin of buttock. According to the patient she has seen Dr. Carmichael for her previous pelvic fractures. Her initial work up in ED shows a fairly unremarkable CBC. Her chemistry is significant for BUN of 28, Cr of 1.7, Mg of 1.7, Alk Phos of 139. Her influenza and rapid COVID-19 tests are negative. Plain imaging study report read as healin g fractures within the superior and inferior pubic rami on the right side. Pelvic CT scan report read as non-displaced fractures within the superior and inferior pubic rami on the left side. Patient lives alone and not able to get up and move around on her own. Her case was discussed with Dr. Jamison in ED and recommended non-surgical intervention. She is coming in for further evaluation and possible placement. She is CPR only. Left Hip Pain Score (Numeric/FACES): 7 - Related Data Allergies/Adverse Reactions: Allergies Allergy/AdvReac Type Severity Reaction Status Date / Time cefaclor Allergy Cannot Verified 07/21/20 13:57 Remember albuterol AdvReac Tachycardia Verified 07/21/20 13:57 Home Medications: Home Meds ALPRAZolam [Xanax] 0.25 mg PO TID 07/04/17 [History] Acetaminophen [Acetaminophen Extra Strength] 325 mg PO Q6H PRN 07/04/17 [History] Aspirin 81 mg PO DAILY 07/04/17 [History] Docusate Sodium/Sennosides [Senna Plus] 8.6 - 50 mg PO BID PRN 07/04/17 [History] Pantoprazole [ProTONIX] 20 mg PO DAILY 07/04/17 [History] atorvaSTATin [Lipitor] 40 mg PO BEDTIME 07/04/17 [History] Furosemide [Lasix] 20 mg PO BIDDIURETIC tablet 07/08/17 [Rx] Losartan [Cozaar] 50 mg PO DAILY 09/27/17 [History] ondansetron HCL [Zofran] 4 mg PO Q6H PRN 09/27/17 [History] Levothyroxine [Synthroid] 50 mcg PO ACBREAKFAST 05/12/18 [History] amLODIPine [Norvasc] 2.5 mg PO DAILY 05/12/18 [History] Acetaminophen/oxyCODONE [Percocet 325-5 MG] 1 tab PO Q6HR PRN 07/21/20 [History] Ferrous Sulfate, Dried [Iron] 320 mg PO DAILY 07/21/20 [History] Fluticasone/Vilanterol [Breo Ellipta 100-25 MCG Inhalation Kit] 1 puff INH DAILY 07/21/20 [History] Levalbuterol Tartrate [Xopenex HFA] 2 puff INH Q6HR PRN 07/21/20 [History] Multivit-Min/FA/Lycopen/Lutein [Certavite Sr-Antioxidant Tab] 1 tab PO DAILY 07/21/20 [History] Phenazopyridine [Pyridium] 100 mg PO TID 07/21/20 [History] Acetaminophen/Codeine [Tylenol with Codeine No.3 300MG/30MG] 1 tab PO Q4H PRN #5 tab 07/22/20 [Rx] Magnesium Oxide 400 mg PO DAILY #4 tablet 07/22/20 [Rx] traMADol [Ultram] 50 mg PO Q8H PRN #8 tablet 07/22/20 [Rx] Past Medical History HEENT History: Reports: Cataract, Impaired Vision Other HEENT History: wears eyeglasses Cardiovascular History: Reports: Heart Murmur, High Cholesterol, Hypertension, Other (See Below) Other Cardiovascular History: tachycardia Respiratory History: Reports: Bronchitis, Recurrent, COPD, Pneumonia, Recurrent Other Respiratory History: "has had pneumonia at least 3 times in her life" states her Gastrointestinal History: Reports: GERD Genitourinary History: Reports: Retention, Urinary, Other (See Below) Other Genitourinary History: kidney failure-states they have "gotten better since the contrast she used for her carotid surgery." 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: Musculoskeletal History: Reports: Back Pain, Chronic, Osteoporosis, Other (See Below) Other Musculoskeletal History: spinal stenosis Neurological History: Reports: CVA Other Neuro History: 2017 Psychiatric History: Reports: Anxiety Endocrine/Metabolic History: Reports: Diabetes, Type II Hematologic History: Reports: Anemia Immunologic History: Reports: None Oncologic (Cancer) History: Reports: Other (See Below) Other Oncologic History: basal cell carcinoma on chin and on arm-removed Dermatologic History: Reports: None Other Dermatologic History: dry scaley patch noted to LFA - Infectious Disease History Infectious Disease History: Reports: Chicken Pox, Measles, Mumps, Shingles - Past Surgical History HEENT Surgical History: Reports: Adenoidectomy, Tonsillectomy Cardiovascular Surgical History: Reports: Carotid Endarterectomy, Carotid Stents 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 GI Surgical History: Reports: Colonoscopy, EGD Female Surgical History: Reports: Tubal Ligation Endocrine Surgical History: Reports: None Neurological Surgical History: Reports: None Social & Family History - Family History Family Medical History: No Pertinent Family History - Tobacco Use Tobacco Use Status *Q: Former Tobacco User Used Tobacco, but Quit: Yes Month/Year Tobacco Last Used: 2017 - Caffeine Use Caffeine Use: Reports: None - Recreational Drug Use Recreational Drug Use: No - Living Situation & Occupation Living situation: Reports: , Extended Care Facility (Entered shelter on Tuesday, July 01.) Occupation: Retired H&P Review of Systems - Review of Systems: Review Of Systems: See Below General: Reports: Weakness. Denies: Fever, Chills, Malaise, Fatigue HEENT: Denies: Eye Pain, Headaches, Sore Throat, Vertigo, Visual Changes Pulmonary: Denies: Shortness of Breath, Cough Cardiovascular: Denies: Chest Pain, Dyspnea on Exertion, Edema Gastrointestinal: Denies: Abdominal Pain, Nausea Genitourinary: Reports: Frequency. Denies: Dysuria, Burning, Incontinence Musculoskeletal: Reports: Leg Pain, Joint Pain, Other (hip pain) Skin: Denies: Pruritis, Rash Psychiatric: Denies: Depression, Anxiety Neurological: Reports: Difficulty Walking, Weakness, Gait Disturbance. Denies: Confusion, Headache, Numbness, Paresthesia, Seizure, Tremors Hematologic/Lymphatic: Denies: Anemia, Easy Bleeding Immunologic: Reports: No Symptoms Exam - Exam Exam: See Below - Vital Signs Vital Signs: Last Vital Signs Temp 36.7 C 07/21/20 13:28 Pulse 73 07/21/20 13:28 Resp 16 07/21/20 10:19 BP 132/93 H 07/21/20 13:28 Pulse Ox 97 07/21/20 13:28 Weight: 73.482 kg - Exam Quality Assessment: No: Supplemental Oxygen General: Alert, Oriented, Cooperative HEENT: Conjunctiva Clear, EACs Clear, EOMI, Hearing Intact, Mucosa Moist & [place], Nares Patent, Normal Nasal Septum, Posterior Pharynx Clear, Pupils Equal, Pupils Reactive, TMs Clear Neck: Supple, Trachea Midline Lungs: Clear to Auscultation, Normal Respiratory Effort Cardiovascular: Regular Rate, Regular Rhythm GI/Abdominal Exam: Normal Bowel Sounds, Soft, Non-Tender, No Organomegaly, No Distention, No Abnormal Bruit, No Mass (Female) Exam: Deferred Rectal (Female) Exam: Deferred Back Exam: Normal Inspection, Decreased Range of Motion Extremities: Normal Inspection, Normal Range of Motion (except left lower extremity), No Pedal Edema, Normal Capillary Refill Peripheral Pulses: 2+: Dorsalis Pedis (L), Dorsalis Pedis (R) Skin: Warm, Dry, Intact Neuro Extensive - Mental Status: Oriented x3, Normal Cognition, Memory Intact Neuro Extensive - Motor, Sensory, Reflexes: No: Normal Gait Psychiatric: Alert, Normal Affect, Normal Mood - Patient Data Lab Results Last 24 hrs: Laboratory Results - last 24 hr 07/21/20 07/21/20 07/21/20 Range/Units 14:00 14:01 14:01 WBC 9.80 (3.98-10.04) K/mm3 RBC 4.12 (3.98-5.22) M/mm3 Hgb 11.7 (11.2-15.7) gm/dl Hct 37.3 (34.1-44.9) % MCV 90.5 (79.4-94.8) fl MCH 28.4 (25.6-32.2) pg MCHC 31.4 L (32.2-35.5) g/dl RDW Std Deviation 48.8 H (36.4-46.3) fL Plt Count 343 (182-369) K/mm3 MPV 8.3 L (9.4-12.3) fl Neut % (Auto) 74.0 H (34.0-71.1) % Lymph % (Auto) 17.3 L (19.3-51.7) % [place] % (Auto) 6.6 (4.7-12.5) % Eos % (Auto) 1.7 (0.7-5.8) Baso % (Auto) 0.2 (0.1-1.2) % Neut # (Auto) 7.24 H (1.56-6.13) K/mm3 Lymph # (Auto) 1.70 (1.18-3.74) K/mm3 [place] # (Auto) 0.65 H (0.24-0.36) K/mm3 Eos # (Auto) 0.17 (0.04-0.36) K/mm3 Baso # (Auto) 0.02 (0.01-0.08) K/mm3 Sodium 139 (136-145) mEq/L Potassium 3.8 (3.5-5.1) mEq/L Chloride 103 (98-107) mEq/L Carbon Dioxide 27 (21-32) mEq/L Anion Gap 12.8 (5-15) BUN 28 H (7-18) mg/dL Creatinine 1.7 H (0.55-1.02) mg/dL Est Cr Clr Drug Dosing 23.29 mL/min Estimated GFR (MDRD) 29 (>60) mL/min BUN/Creatinine Ratio 16.5 (14-18) Glucose 112 (83-115) mg/dL Calcium 9.8 (8.5-10.1) mg/dL Magnesium 1.7 L (1.8-2.4) mg/dl Total Bilirubin 0.5 (0.2-1.0) mg/dL AST 15 (15-37) U/L ALT 18 (14-59) U/L Alkaline Phosphatase 139 H (46-116) U/L Total Protein 7.8 (6.4-8.2) g/dl Albumin 3.7 (3.4-5.0) g/dl Globulin 4.1 gm/dL Albumin/Globulin Ratio 0.9 L (1-2) Influenza Type A RNA Negative (NEGATIVE) Influenza Type B RNA Negative (NEGATIVE) SARS-CoV-2 RNA (RENE) Negative (NEGATIVE) Result Diagrams: 07/21/20 14:01 07/22/20 04:41 Sepsis Event Note - Evaluation Sepsis Screening Result: No Definite Risk - Focused Exam Vital Signs: Vital Signs Temp Temp Pulse Pulse Resp BP BP 07/21/20 13:28 36.7 C 73 132/93 H 07/21/20 10:19 36.9 C 75 16 150/33 H Pulse Ox 07/21/20 13:28 97 07/21/20 10:19 98 Problem List Initiated/Reviewed/Updated: Yes Orders Last 24hrs: Active Orders 24 hr Category Date Time Status Patient Status [ADT] Routine ADT 07/21/20 13:06 Active Height and Weight [RC] DAILY Care 07/21/20 13:39 Active Intake and Output [RC] QSHIFT Care 07/21/20 13:39 Active Oxygen Therapy [RC] PRN Care 07/21/20 13:39 Active Pulse Oximetry [RC] PRN Care 07/21/20 13:39 Active Up With Assistance [RC] ASDIRECTED Care 07/21/20 13:39 Active Up to Chair [RC] ASDIRECTED Care 07/21/20 13:39 Active VTE/DVT Education [RC] PER UNIT ROUTINE Care 07/21/20 13:39 Active Vital Signs [RC] Q4HR Care 07/21/20 13:39 Active Consult to Case Management/Is Technician [CONS] Cons 07/21/20 13:39 Active Routine Consult to Spiritual Care [CONS] Routine Cons 07/21/20 13:39 Active OT Evaluation and Treatment [CONS] Routine Cons 07/21/20 13:39 Active PT Evaluation and Treatment [CONS] Routine Cons 07/21/20 13:39 Active Heart Healthy Diet [DIET] Diet 07/21/20 Dinner Active ALPRAZolam [Xanax] Med 07/21/20 16:30 Active 0.25 mg PO TID Acetaminophen [TylenoL] Med 07/21/20 13:39 Active 650 mg PO Q4H PRN Acetaminophen/HYDROcodone [[place] 325-5 MG] Med 07/21/20 13:39 Active 1 tab PO Q4H PRN Aspirin Med 07/22/20 09:00 Active 81 mg PO DAILY Docusate Sodium [Colace] Med 07/21/20 21:00 Active 100 mg PO BID Fluticasone/Vilanterol Med 07/22/20 09:00 Pending 1 puff INH DAILY Furosemide [Lasix] Med 07/21/20 16:30 Active 20 mg PO BIDDIURETIC Levalbuterol Tartrate [Xopenex Hfa] Med 07/21/20 13:41 Pending 2 puff INH QID PRN Levothyroxine [Synthroid] Med 07/22/20 06:00 Active 50 mcg PO ACBREAKFAST Losartan [Cozaar] Med 07/22/20 09:00 Active 50 mg PO DAILY Magnesium Oxide Med 07/21/20 16:30 Active 400 mg PO BID Morphine Med 07/21/20 13:39 Active 2 mg IVPUSH Q2H PRN Multivitamins,Therapeutic [Thera] Med 07/22/20 09:00 Active 1 each PO DAILY Ondansetron [Zofran] Med 07/21/20 13:39 Active 4 mg IV Q6H PRN Pantoprazole [ProTONIX] Med 07/22/20 07:00 Active 40 mg PO DAILY@0700 Rosuvastatin [Crestor] Med 07/22/20 09:00 Active 10 mg PO DAILY amLODIPine [Norvasc] Med 07/22/20 09:00 Active 2.5 mg PO DAILY Medication Orders Acetaminophen (Tylenol) 650 mg PO Q4H PRN PRN Reason: Pain (Mild 1-3)/fever Hydrocodone Bitart/Acetaminophen ([place] 325-5 Mg) 1 tab PO Q4H PRN PRN Reason: Pain (moderate 4-6) Alprazolam (Xanax) 0.25 mg PO TID MATT Last Admin: 07/21/20 16:42 Dose: 0.25 mg Documented by: SIDDHARTH Amlodipine Besylate (Norvasc) 2.5 mg PO DAILY MATT Aspirin (Aspirin) 81 mg PO DAILY MATT Docusate Sodium (Colace) 100 mg PO BID MATT Furosemide (Lasix) 20 mg PO BIDDIURETIC MATT Last Admin: 07/21/20 16:42 Dose: 20 mg Documented by: SIDDHARTH Levothyroxine Sodium (Synthroid) 50 mcg PO ACBREAKFAST MATT Losartan Potassium (Cozaar) 50 mg PO DAILY MATT Magnesium Oxide (Magnesium Oxide) 400 mg PO BID MATT Stop: 07/22/20 21:01 Last Admin: 07/21/20 16:42 Dose: 400 mg Documented by: SIDDHARTH Morphine Sulfate (Morphine) 2 mg IVPUSH Q2H PRN PRN Reason: Pain (severe 7-10) Stop: 07/22/20 13:40 Multivitamins (Thera) 1 each PO DAILY [facility] Non-Formulary Medication (Fluticasone/Vilanterol) 1 puff INH DAILY [facility] Non-Formulary Medication (Levalbuterol Tartrate [Xopenex Hfa]) 2 puff INH QID PRN PRN Reason: sob Ondansetron HCl (Zofran) 4 mg IV Q6H PRN PRN Reason: Nausea/Vomiting Pantoprazole Sodium (Protonix) 40 mg PO DAILY@0700 [facility] Rosuvastatin Calcium (Crestor) 10 mg PO DAILY [facility] Assessment/Plan Comment:: This is a 74 yo pleasant elderly white female with past medical hx/o Impaired Vision, HTN, HLD, Heart Murmur, CKD Stage 2-3, COPD, Recurrent PNA, GERD, Urinary Retention, Chronic Back Pain, Osteoporosis, Hx/o CVA, DM2-diet controlled, Hx/o Anemia Requiring Blood Transfusion, Former Smoker, Hx/o Pelvic Fractures who comes in for further evaluation of left hip pain. Assessment: Acute: Left non-displaced fractures within the superior and inferior pubic rami on the left side, seen on CT scan Left Hip Pain secondary to above Osteoporosis Hypomagnesemia with Mg level of 1.7 Elevated Alk Phos of 139 Hypertension Chronic: Impaired Vision, HTN, HLD, Heart Murmur, CKD Stage 2-3, COPD, Recurrent PNA, GERD, Urinary Retention, Chronic Back Pain, Osteoporosis, Hx/o CVA, DM2- diet controlled, Hx/o Anemia Requiring Blood Transfusion, Former Smoker, Hx/o Pelvic Fractures Plan:Admit to [facility]. Routine AM lab. Vit D level. Fall precautions. PT/OT eval. Resume home meds once verified. AHA diet. Pain medications. IV fluids 500ml NS x1 for hydration. Will avoid narcotics due to intolerance. SW/CM for d/c planning. DVT/GI Prophylaxis. Code status is CPR only. - Mortality Measure Prognosis:: Good
[2020-07-21] MEDS ORDERED: Acetaminophen/Codeine 300-30 MG Tab PO PRN (20:12)
[2020-07-21] MEDS ORDERED: traMADol 50 MG Tab PO PRN (20:12)
[2020-07-21] MEDS ORDERED: Sodium Chloride 0.9% 500 ML IV SCH (21:00)
[2020-07-21] MEDS ORDERED: PHENAZOPYRIDINE 100 MG PO SCH (21:00)
[2020-07-21] MEDS: Docusate Sodium 100 MG Cap PO SCH (22:03)
[2020-07-22] MEDS: ALPRAZolam 0.25 MG Tab PO SCH ×3 (00:45→14:24)
[2020-07-22] MEDS ORDERED: Levothyroxine 50 MCG Tab PO SCH (06:00)
[2020-07-22] MEDS: Furosemide 20 MG Tab PO SCH ×2 (06:49→14:24)
[2020-07-22] MEDS ORDERED: Pantoprazole 40 MG Tab.CR PO SCH (07:00)
--- NOTE | 2020-07-22 08:14 | PCM.PN ---
- General Info Date of Service: 07/22/20 Admission Dx/Problem (Free Text): Admission Diagnosis/Problem Admission Diagnosis/Problem Fracture of pelvis - Patient Data Vitals - Most Recent: Last Vital Signs Temp 97.9 F 07/22/20 06:42 Pulse 76 07/22/20 06:42 Resp 16 07/22/20 06:42 BP 147/84 H 07/22/20 06:42 Pulse Ox 93 L 07/22/20 06:42 Weight - Most Recent: 165 lb I&O - Last 24 Hours: Intake & Output 07/21/20 07/22/20 07/22/20 22:59 06:59 14:59 Intake Total 120 970 Output Total 550 Balance 120 420 Lab Results Last 24 Hours: Laboratory Results - last 24 hr 07/21/20 07/21/20 07/21/20 Range/Units 14:00 14:01 14:01 WBC 9.80 (3.98-10.04) K/mm3 RBC 4.12 (3.98-5.22) M/mm3 Hgb 11.7 (11.2-15.7) gm/dl Hct 37.3 (34.1-44.9) % MCV 90.5 (79.4-94.8) fl MCH 28.4 (25.6-32.2) pg MCHC 31.4 L (32.2-35.5) g/dl RDW Std Deviation 48.8 H (36.4-46.3) fL Plt Count 343 (182-369) K/mm3 MPV 8.3 L (9.4-12.3) fl Neut % (Auto) 74.0 H (34.0-71.1) % Lymph % (Auto) 17.3 L (19.3-51.7) % [place] % (Auto) 6.6 (4.7-12.5) % Eos % (Auto) 1.7 (0.7-5.8) Baso % (Auto) 0.2 (0.1-1.2) % Neut # (Auto) 7.24 H (1.56-6.13) K/mm3 Lymph # (Auto) 1.70 (1.18-3.74) K/mm3 [place] # (Auto) 0.65 H (0.24-0.36) K/mm3 Eos # (Auto) 0.17 (0.04-0.36) K/mm3 Baso # (Auto) 0.02 (0.01-0.08) K/mm3 Sodium 139 (136-145) mEq/L Potassium 3.8 (3.5-5.1) mEq/L Chloride 103 (98-107) mEq/L Carbon Dioxide 27 (21-32) mEq/L Anion Gap 12.8 (5-15) BUN 28 H (7-18) mg/dL Creatinine 1.7 H (0.55-1.02) mg/dL Est Cr Clr Drug Dosing 23.29 mL/min Estimated GFR (MDRD) 29 (>60) mL/min BUN/Creatinine Ratio 16.5 (14-18) Glucose 112 (83-115) mg/dL Calcium 9.8 (8.5-10.1) mg/dL Magnesium 1.7 L (1.8-2.4) mg/dl Total Bilirubin 0.5 (0.2-1.0) mg/dL AST 15 (15-37) U/L ALT 18 (14-59) U/L Alkaline Phosphatase 139 H (46-116) U/L Total Protein 7.8 (6.4-8.2) g/dl Albumin 3.7 (3.4-5.0) g/dl Globulin 4.1 gm/dL Albumin/Globulin Ratio 0.9 L (1-2) Influenza Type A RNA Negative (NEGATIVE) Influenza Type B RNA Negative (NEGATIVE) SARS-CoV-2 RNA (RENE) Negative (NEGATIVE) 07/22/20 Range/Units 04:41 WBC (3.98-10.04) K/mm3 RBC (3.98-5.22) M/mm3 Hgb (11.2-15.7) gm/dl Hct (34.1-44.9) % MCV (79.4-94.8) fl MCH (25.6-32.2) pg MCHC (32.2-35.5) g/dl RDW Std Deviation (36.4-46.3) fL Plt Count (182-369) K/mm3 MPV (9.4-12.3) fl Neut % (Auto) (34.0-71.1) % Lymph % (Auto) (19.3-51.7) % [place] % (Auto) (4.7-12.5) % Eos % (Auto) (0.7-5.8) Baso % (Auto) (0.1-1.2) % Neut # (Auto) (1.56-6.13) K/mm3 Lymph # (Auto) (1.18-3.74) K/mm3 [place] # (Auto) (0.24-0.36) K/mm3 Eos # (Auto) (0.04-0.36) K/mm3 Baso # (Auto) (0.01-0.08) K/mm3 Sodium 139 (136-145) mEq/L Potassium 3.7 (3.5-5.1) mEq/L Chloride 104 (98-107) mEq/L Carbon Dioxide 26 (21-32) mEq/L Anion Gap 12.7 (5-15) BUN 32 H (7-18) mg/dL Creatinine 1.5 H (0.55-1.02) mg/dL Est Cr Clr Drug Dosing 26.39 mL/min Estimated GFR (MDRD) 34 (>60) mL/min BUN/Creatinine Ratio 21.3 H (14-18) Glucose 116 H (83-115) mg/dL Calcium 8.9 (8.5-10.1) mg/dL Magnesium 1.8 (1.8-2.4) mg/dl Total Bilirubin (0.2-1.0) mg/dL AST (15-37) U/L ALT (14-59) U/L Alkaline Phosphatase (46-116) U/L Total Protein (6.4-8.2) g/dl Albumin (3.4-5.0) g/dl Globulin gm/dL Albumin/Globulin Ratio (1-2) Influenza Type A RNA (NEGATIVE) Influenza Type B RNA (NEGATIVE) SARS-CoV-2 RNA (RENE) (NEGATIVE) Med Orders - Current: Current Medications Acetaminophen (Tylenol) 650 mg PO Q4H PRN PRN Reason: Pain (Mild 1-3)/fever Acetaminophen (Tylenol) 325 mg PO Q6H PRN PRN Reason: Pain Acetaminophen/Codeine Phosphate (Tylenol With Codeine No.3 300mg/30mg) 1 tab PO Q6HR PRN PRN Reason: Pain Hydrocodone Bitart/Acetaminophen ([place] 325-5 Mg) 1 tab PO Q4H PRN PRN Reason: Pain (moderate 4-6) Alprazolam (Xanax) 0.25 mg PO TID [facility] Last Admin: 07/22/20 00:45 Dose: Not Given Documented by: Amlodipine Besylate (Norvasc) 2.5 mg PO DAILY [facility] Aspirin (Aspirin) 81 mg PO DAILY [facility] Docusate Sodium (Colace) 100 mg PO BID [facility] Last Admin: 07/21/20 22:03 Dose: 100 mg Documented by: Furosemide (Lasix) 20 mg PO BIDDIURETIC [facility] Last Admin: 07/22/20 06:49 Dose: 20 mg Documented by: Sodium Chloride (Normal Saline) 500 mls @ 35 mls/hr IV ASDIRECTED [facility] Stop: 07/22/20 11:18 Last Admin: 07/22/20 02:17 Dose: 35 mls/hr Documented by: Levothyroxine Sodium (Synthroid) 50 mcg PO ACBREAKFAST [facility] Last Admin: 07/22/20 06:49 Dose: 50 mcg Documented by: Losartan Potassium (Cozaar) 50 mg PO DAILY [facility] Magnesium Oxide (Magnesium Oxide) 400 mg PO BID [facility] Stop: 07/22/20 21:01 Last Admin: 07/21/20 22:03 Dose: 400 mg Documented by: Morphine Sulfate (Morphine) 2 mg IVPUSH Q2H PRN PRN Reason: Pain (severe 7-10) Stop: 07/22/20 13:40 Multivitamins (Thera) 1 each PO DAILY [facility] Non-Formulary Medication (Fluticasone/Vilanterol) 1 puff INH DAILY [facility] Non-Formulary Medication (Levalbuterol Tartrate [Xopenex Hfa]) 2 puff INH QID PRN PRN Reason: sob Non-Formulary Medication (Ferrous Sulfate, Dried) 320 mg PO DAILY [facility] Non-Formulary Medication (Fluticasone/Vilanterol) 1 puff INH DAILY [facility] Non-Formulary Medication (Levalbuterol Tartrate [Xopenex Hfa]) 2 puff INH Q6HR PRN PRN Reason: Shortness of Breath Non-Formulary Medication (Multivit-Min/Fa/Lycopen/Lutein [Certavite Sr- Antioxidant Tab]) 1 tab PO DAILY [facility] Non-Formulary Medication (Phenazopyridine) 100 mg PO TID [facility] Ondansetron HCl (Zofran) 4 mg IV Q6H PRN PRN Reason: Nausea/Vomiting Pantoprazole Sodium (Protonix) 40 mg PO DAILY@0700 [facility] Last Admin: 07/22/20 06:49 Dose: 40 mg Documented by: Rosuvastatin Calcium (Crestor) 10 mg PO DAILY [facility] Senna/Docusate Sodium (Senna Plus) 1 tab PO BID PRN PRN Reason: Constipation Tramadol HCl (Ultram) 50 mg PO Q8H PRN PRN Reason: Pain Discontinued Medications Non-Formulary Medication (Ondansetron Hcl) 4 mg PO Q6H PRN PRN Reason: Nausea Sepsis Event Note - Evaluation Sepsis Screening Result: No Definite Risk - Focused Exam Vital Signs: Vital Signs Temp Pulse Resp BP Pulse Ox 07/22/20 06:42 97.9 F 76 16 147/84 H 93 L 07/22/20 02:15 98.1 F 79 12 141/81 H 96 07/21/20 22:08 97.5 F 78 12 138/57 L 96 - My Orders Last 24 Hours: My Active Orders 07/21/20 13:39 Height and Weight [RC] 06 Intake and Output [RC] 04,1600 Oxygen Therapy [RC] PRN Pulse Oximetry [RC] PRN Up With Assistance [RC] ASDIRECTED Up to Chair [RC] ASDIRECTED VTE/DVT Education [RC] PER UNIT ROUTINE Vital Signs [RC] Q4HR Consult to Case Management/Dolly Pusher [CONS] Routine Consult to Spiritual Care [CONS] Routine OT Evaluation and Treatment [CONS] Routine PT Evaluation and Treatment [CONS] Routine Acetaminophen [TylenoL] 650 mg PO Q4H PRN Acetaminophen/HYDROcodone [[place] 325-5 MG] 1 tab PO Q4H PRN Morphine 2 mg IVPUSH Q2H PRN Ondansetron [Zofran] 4 mg IV Q6H PRN 07/21/20 13:41 Levalbuterol Tartrate [Xopenex Hfa] 2 puff INH QID PRN 07/21/20 16:30 ALPRAZolam [Xanax] 0.25 mg PO TID Furosemide [Lasix] 20 mg PO BIDDIURETIC Magnesium Oxide 400 mg PO BID 07/21/20 Dinner Heart Healthy Diet [DIET] 07/21/20 21:00 Docusate Sodium [Colace] 100 mg PO BID 07/22/20 06:00 Levothyroxine [Synthroid] 50 mcg PO ACBREAKFAST 07/22/20 07:00 Pantoprazole [ProTONIX] 40 mg PO DAILY@0700 07/22/20 09:00 Aspirin 81 mg PO DAILY Fluticasone/Vilanterol 1 puff INH DAILY Losartan [Cozaar] 50 mg PO DAILY Multivitamins,Therapeutic [Thera] 1 each PO DAILY Rosuvastatin [Crestor] 10 mg PO DAILY amLODIPine [Norvasc] 2.5 mg PO DAILY - Plan Plan:: This is a 74 yo pleasant elderly white female with past medical hx/o Impaired Vision, HTN, HLD, Heart Murmur, CKD Stage 2-3, COPD, Recurrent PNA, GERD, Urinary Retention, Chronic Back Pain, Osteoporosis, Hx/o CVA, DM2-diet controlled, Hx/o Anemia Requiring Blood Transfusion, Former Smoker, Hx/o Pelvic Fracture who comes in for further evaluation of left hip pain. Assessment: Acute: Left non-displaced fractures within the superior and inferior pubic rami on the left side, seen on CT scan Left Hip Pain secondary to above Osteoporosis Hypomagnesemia with Mg level of 1.7 Elevated Alk Phos of 139 Hypertension Chronic: Impaired Vision, HTN, HLD, Heart Murmur, CKD Stage 2-3, COPD, Recurrent PNA, GERD, Urinary Retention, Chronic Back Pain, Osteoporosis, Hx/o CVA, DM2-di et controlled, Hx/o Anemia Requiring Blood Transfusion, Former Smoker, Hx/o Pelvic Fracture Plan:Admit to [facility]. Routine AM lab. Vit D level. Fall precautions. PT/OT eval. Resume home meds once verified. AHA diet. Pain medications. IV fluids 500ml NS x1 for hydration. Will avoid narcotics due to intolerance. SW/CM for d/c planning. DVT/GI Prophylaxis. Code status is CPR only.
[2020-07-22] MEDS ORDERED: Multivitamins,Therapeutic Tab PO SCH (09:00)
[2020-07-22] MEDS ORDERED: Aspirin 81 MG Tab.Chew PO SCH (09:00)
[2020-07-22] MEDS ORDERED: Rosuvastatin 10 MG Tab PO SCH (09:00)
[2020-07-22] MEDS ORDERED: amLODIPine 2.5 MG Tab PO SCH (09:00)
[2020-07-22] MEDS ORDERED: Non-Formulary Medication 1 Each (Fluticasone/Vilanterol 1 PUFF) INH SCH (09:00)
[2020-07-22] MEDS ORDERED: Losartan 25 MG Tab PO SCH (09:00)
[2020-07-22] MEDS: Magnesium Oxide 400 MG Tab PO SCH (09:48)
[2020-07-22] MEDS: Docusate Sodium 100 MG Cap PO SCH (09:49)
[2020-07-22] MEDS ORDERED: Formoterol/Mometasone 100-5 MCG 8.8 GM Inhaler IH SCH (11:00)
--- NOTE | 2020-07-22 11:18 | PCM.DCSUM1 ---
Discharge Summary - Hospital Course HPI Initial Comments: This is a 74 yo pleasant elderly white female with past medical hx/o Impaired Vision, HTN, HLD, Heart Murmur, COPD, Recurrent PNA, GERD, Urinary Retention, Chronic Back Pain, Osteoporosis, Hx/o CVA, DM2-diet controlled, Hx/o Anemia Requiring Blood Transfusion, Former Smoker, Hx/o Pelvic Fracture who comes in for further evaluation of left hip pain. She states she was making her bed today when her left foot turned outward then heard a "popping sound". She thought she may broken a bone and she was unable to bear weight to her left hip. She denies any preceding symptoms. No head trauma or fall. No loss of bowel or bladder incontinence. She is voiding and passing gas. No paresthesia in her groin of buttock. According to the patient she has seen Dr. Carmichael for her previous pelvic fractures. Her initial work up in ED shows a fairly unremarkable CBC. Her chemistry is significant for BUN of 28, Cr of 1.7, Mg of 1.7, Alk Phos of 139. Her influenza and rapid COVID-19 tests are negative. Pain imaging study report rad as healing fractures within the superior and inferior pubic rami on the right side. Pelvic CT scan report read as non-displaced fractures within the superior and inferior pubic rami on the left side. Patient lives alone and not able to get up and move around on her own. Her cased was discussed with Dr. Jamison in ED and recommended non-surgical intervention. She is coming in for further evaluation and possible placement. She is CPR only. Diagnosis: Stroke: No - Discharge Data Discharge Date: 07/22/20 (Admit date: 07/21/2020) Discharge Disposition: Home, Self-Care 01 Condition: Good - Referral to Home Health Primary Care Physician: Que Carter MD - Discharge Diagnosis/Problem(s) (1) Pelvic fracture SNOMED Code(s): 98565320 ICD Code: S32.9XXA - FRACTURE OF UNSP PARTS OF LUMBOSACRAL SPINE AND PELVIS, INIT Status: Acute Priority: High Current Visit: Yes Qualifiers: Encounter type: initial encounter Pelvic bone location: ischium Fracture type: closed Fracture morphology: unspecified fracture morphology Fracture alignment: nondisplaced Laterality: left Qualified Code(s): S32.602A - Unspecified fracture of left ischium, initial encounter for closed fracture (2) Hypomagnesemia SNOMED Code(s): 105473792 ICD Code: E83.42 - HYPOMAGNESEMIA Status: Acute Priority: High Current Visit: Yes - Patient Summary/Data Consults: Consultations 07/21/20 13:39 Consult to Case Management/Hand Candy Dipper [CONS] Routine Consult to Spiritual Care [CONS] Routine OT Evaluation and Treatment [CONS] Routine PT Evaluation and Treatment [CONS] Routine Labs Pending at D/C: None Recommended Follow-up Testing/Procedures: Follow-up with primary care provider within 7-10 days of discharge, sooner if needed. Follow-up with outpatient PT as directed Follow-up with orthopedics regarding pelvic fracture as scheduled Hospital Course: 74 yo female admitted to the hospital floor after she felt a pop while doing house chores and noted she was unable to bear any weight on her left leg. She is found to have a superior and inferior pubic rami fracture on the left side. She has a history of pelvic fracture on the right side and has been seeing Dr. Carmichael at [facility] for this. She was admitted for pain control and possible placement, along with evaluation by PT and OT. She lives at home alone but does have a son that helps take care of her. Of note, her did recently pass away and she has some concerns about living alone, but ultimately decided she does not want placement. She did work with PT and OT who recommended outpatient PT. Unfortunately we do not have the option of home health PT at this time per social work. She has been refusing most pain medications as she is concerned about addiction potential. We did discuss how this would likely help her heal and she is still refusing. Ultimately she agreed to continuing her Tylenol 3, Tylenol, and Ultram as needed for pain. She does have prescriptions already for her Tylenol 3 and Ultram. Very short course refills were sent as she is unsure of when/if they or if she has any left at home. She does have Percocet listed as a home medication but she reports that she and her home health nurse disposed of these a while ago in a special bag with fluid. She does ambulate at home with a walker and she was advised to continue using this. Her magnesium was low and this was supplemented. She will be sent home on a 4-day course of oral magnesium as well . Primary care provider should repeat CBC, CMP, and magnesium in follow-up. She was advised to follow-up with her primary care provider within 7 to 10 days of discharge. She already has an appointment scheduled with Dr. Carmichael in early August for follow-up with her prior pelvic fracture and she was instructed to attend this appointment. No changes to home medications. As noted she was prescribed Tylenol 3, Ultram, and a short course of magnesium. She was discharged home today. She was instructed to follow-up with primary care provider or return to the emergency room should symptoms return or worsen. - Patient Instructions Diet: Heart Healthy Diet Activity: As Tolerated Driving: Do Not Drive Showering/Bathing: May Shower Notify Provider of: Fever, Increased Pain, Nausea and/or Vomiting Other/Special Instructions: Follow-up with primary care provider within 7-10 days of discharge, sooner if needed. Follow-up with orthopedic surgery as scheduled. Take your home pain medications as needed as prescribed. Outpatient PT as directed. Your magnesium was low and was supplemented. You will be prescribed a short term of magnesium supplementation. This was sent to your pharmacy. Should sympotms return contact primary care provider or return to the Emergency Department. - Discharge Plan *PRESCRIPTION DRUG MONITORING PROGRAM REVIEWED*: No *COPY OF PRESCRIPTION DRUG MONITORING REPORT IN PATIENT TAMMY: No Prescriptions/Med Rec: Magnesium Oxide 400 mg PO DAILY #4 tablet Acetaminophen/Codeine [Tylenol with Codeine No.3 300MG/30MG] 1 tab PO Q4H PRN #5 tab PRN Reason: Pain traMADol [Ultram] 50 mg PO Q8H PRN #8 tablet PRN Reason: Pain Home Medications: Home Meds ALPRAZolam [Xanax] 0.25 mg PO TID 07/04/17 [History] Acetaminophen [Acetaminophen Extra Strength] 325 mg PO Q6H PRN 07/04/17 [History] Aspirin 81 mg PO DAILY 07/04/17 [History] Docusate Sodium/Sennosides [Senna Plus] 8.6 - 50 mg PO BID PRN 07/04/17 [History] Pantoprazole [ProTONIX] 20 mg PO DAILY 07/04/17 [History] atorvaSTATin [Lipitor] 40 mg PO BEDTIME 07/04/17 [History] Furosemide [Lasix] 20 mg PO BIDDIURETIC tablet 07/08/17 [Rx] Losartan [Cozaar] 50 mg PO DAILY 09/27/17 [History] ondansetron HCL [Zofran] 4 mg PO Q6H PRN 09/27/17 [History] Levothyroxine [Synthroid] 50 mcg PO ACBREAKFAST 05/12/18 [History] amLODIPine [Norvasc] 2.5 mg PO DAILY 05/12/18 [History] Acetaminophen/oxyCODONE [Percocet 325-5 MG] 1 tab PO Q6HR PRN 07/21/20 [History] Ferrous Sulfate, Dried [Iron] 320 mg PO DAILY 07/21/20 [History] Fluticasone/Vilanterol [Breo Ellipta 100-25 MCG Inhalation Kit] 1 puff INH DAILY 07/21/20 [History] Levalbuterol Tartrate [Xopenex HFA] 2 puff INH Q6HR PRN 07/21/20 [History] Multivit-Min/FA/Lycopen/Lutein [Certavite Sr-Antioxidant Tab] 1 tab PO DAILY 07/21/20 [History] Phenazopyridine [Pyridium] 100 mg PO TID 07/21/20 [History] Acetaminophen/Codeine [Tylenol with Codeine No.3 300MG/30MG] 1 tab PO Q4H PRN #5 tab 07/22/20 [Rx] Magnesium Oxide 400 mg PO DAILY #4 tablet 07/22/20 [Rx] traMADol [Ultram] 50 mg PO Q8H PRN #8 tablet 07/22/20 [Rx] Oxygen Therapy Mode: Room Air Patient Handouts: Simple Pelvic Fracture, Adult Referrals: Que Carter MD [Primary Care Provider] - 07/31/20 7:45 am (Your appointment July 31 at 7:45. Bring photo ID and insurance cards to appointment. Bring your hospital discharge papers also.) Leon Carmichael DO [Physician] - 08/07/20 9:15 am (Please follow up with Dr. Carmichael August 07 at 9:15. ) - Discharge Summary/Plan Comment DC Time >30 min.: Yes (45 mins ) - General Info Date of Service: 07/22/20 Functional Status: Reports: Pain Controlled, Tolerating Diet, Ambulating, Urinating. Denies: New Symptoms - Review of Systems General: Reports: No Symptoms. Denies: Fever, Weakness, Fatigue, Malaise, Chills HEENT: Reports: No Symptoms. Denies: Headaches, Sore Throat Pulmonary: Reports: No Symptoms. Denies: Shortness of Breath, Cough, Sputum, Wheezing Cardiovascular: Reports: No Symptoms. Denies: Chest Pain, Palpitations, Dyspnea on Exertion, Edema Gastrointestinal: Reports: No Symptoms. Denies: Abdominal Pain, Constipation, Diarrhea, Nausea, Vomiting Genitourinary: Reports: No Symptoms. Denies: Pain Musculoskeletal: Reports: Joint Pain (left hip ) Skin: Reports: No Symptoms. Denies: Cyanosis Neurological: Reports: Difficulty Walking (mild - utilizing walker ), Gait Disturbance. Denies: Confusion, Numbness, Tingling, Weakness Psychiatric: Reports: No Symptoms - Patient Data Vitals - Most Recent: Last Vital Signs Temp 97.9 F 07/22/20 06:42 Pulse 76 07/22/20 06:42 Resp 16 07/22/20 06:42 BP 123/94 H 07/22/20 09:49 Pulse Ox 93 L 07/22/20 06:42 Weight - Most Recent: 165 lb I&O - Last 24 hours: Intake & Output 07/21/20 07/22/20 07/22/20 22:59 06:59 14:59 Intake Total 560 970 Output Total 550 Balance 560 420 Lab Results - Last 24 hrs: Laboratory Results - last 24 hr 07/21/20 07/21/20 07/21/20 Range/Units 14:00 14:01 14:01 WBC 9.80 (3.98-10.04) K/mm3 RBC 4.12 (3.98-5.22) M/mm3 Hgb 11.7 (11.2-15.7) gm/dl Hct 37.3 (34.1-44.9) % MCV 90.5 (79.4-94.8) fl MCH 28.4 (25.6-32.2) pg MCHC 31.4 L (32.2-35.5) g/dl RDW Std Deviation 48.8 H (36.4-46.3) fL Plt Count 343 (182-369) K/mm3 MPV 8.3 L (9.4-12.3) fl Neut % (Auto) 74.0 H (34.0-71.1) % Lymph % (Auto) 17.3 L (19.3-51.7) % Beckham % (Auto) 6.6 (4.7-12.5) % Eos % (Auto) 1.7 (0.7-5.8) Baso % (Auto) 0.2 (0.1-1.2) % Neut # (Auto) 7.24 H (1.56-6.13) K/mm3 Lymph # (Auto) 1.70 (1.18-3.74) K/mm3 Beckham # (Auto) 0.65 H (0.24-0.36) K/mm3 Eos # (Auto) 0.17 (0.04-0.36) K/mm3 Baso # (Auto) 0.02 (0.01-0.08) K/mm3 Sodium 139 (136-145) mEq/L Potassium 3.8 (3.5-5.1) mEq/L Chloride 103 (98-107) mEq/L Carbon Dioxide 27 (21-32) mEq/L Anion Gap 12.8 (5-15) BUN 28 H (7-18) mg/dL Creatinine 1.7 H (0.55-1.02) mg/dL Est Cr Clr Drug Dosing 23.29 mL/min Estimated GFR (MDRD) 29 (>60) mL/min BUN/Creatinine Ratio 16.5 (14-18) Glucose 112 (83-115) mg/dL Calcium 9.8 (8.5-10.1) mg/dL Magnesium 1.7 L (1.8-2.4) mg/dl Total Bilirubin 0.5 (0.2-1.0) mg/dL AST 15 (15-37) U/L ALT 18 (14-59) U/L Alkaline Phosphatase 139 H (46-116) U/L Total Protein 7.8 (6.4-8.2) g/dl Albumin 3.7 (3.4-5.0) g/dl Globulin 4.1 gm/dL Albumin/Globulin Ratio 0.9 L (1-2) Vitamin D 25-Hydroxy (30.0-100.0) ng/ml Influenza Type A RNA Negative (NEGATIVE) Influenza Type B RNA Negative (NEGATIVE) SARS-CoV-2 RNA (RENE) Negative (NEGATIVE) 07/22/20 07/22/20 Range/Units 04:41 04:41 WBC (3.98-10.04) K/mm3 RBC (3.98-5.22) M/mm3 Hgb (11.2-15.7) gm/dl Hct (34.1-44.9) % MCV (79.4-94.8) fl MCH (25.6-32.2) pg MCHC (32.2-35.5) g/dl RDW Std Deviation (36.4-46.3) fL Plt Count (182-369) K/mm3 MPV (9.4-12.3) fl Neut % (Auto) (34.0-71.1) % Lymph % (Auto) (19.3-51.7) % Beckham % (Auto) (4.7-12.5) % Eos % (Auto) (0.7-5.8) Baso % (Auto) (0.1-1.2) % Neut # (Auto) (1.56-6.13) K/mm3 Lymph # (Auto) (1.18-3.74) K/mm3 Beckham # (Auto) (0.24-0.36) K/mm3 Eos # (Auto) (0.04-0.36) K/mm3 Baso # (Auto) (0.01-0.08) K/mm3 Sodium 139 (136-145) mEq/L Potassium 3.7 (3.5-5.1) mEq/L Chloride 104 (98-107) mEq/L Carbon Dioxide 26 (21-32) mEq/L Anion Gap 12.7 (5-15) BUN 32 H (7-18) mg/dL Creatinine 1.5 H (0.55-1.02) mg/dL Est Cr Clr Drug Dosing 26.39 mL/min Estimated GFR (MDRD) 34 (>60) mL/min BUN/Creatinine Ratio 21.3 H (14-18) Glucose 116 H (83-115) mg/dL Calcium 8.9 (8.5-10.1) mg/dL Magnesium 1.8 (1.8-2.4) mg/dl Total Bilirubin (0.2-1.0) mg/dL AST (15-37) U/L ALT (14-59) U/L Alkaline Phosphatase (46-116) U/L Total Protein (6.4-8.2) g/dl Albumin (3.4-5.0) g/dl Globulin gm/dL Albumin/Globulin Ratio (1-2) Vitamin D 25-Hydroxy 41.0 (30.0-100.0) ng/ml Influenza Type A RNA (NEGATIVE) Influenza Type B RNA (NEGATIVE) SARS-CoV-2 RNA (RENE) (NEGATIVE) Med Orders - Current: Current Medications Acetaminophen (Tylenol) 650 mg PO Q4H PRN PRN Reason: Pain (Mild 1-3)/fever Acetaminophen/Codeine Phosphate (Tylenol With Codeine No.3 300mg/30mg) 1 tab PO Q6H PRN PRN Reason: Pain Hydrocodone Bitart/Acetaminophen ([place] 325-5 Mg) 1 tab PO Q4H PRN PRN Reason: Pain (moderate 4-6) Alprazolam (Xanax) 0.25 mg PO TID [facility] Last Admin: 07/22/20 09:49 Dose: 0.25 mg Documented by: Amlodipine Besylate (Norvasc) 2.5 mg PO DAILY [facility] Last Admin: 07/22/20 09:48 Dose: 2.5 mg Documented by: Aspirin (Aspirin) 81 mg PO DAILY [facility] Last Admin: 07/22/20 09:49 Dose: 81 mg Documented by: Docusate Sodium (Colace) 100 mg PO BID [facility] Last Admin: 07/22/20 09:49 Dose: 100 mg Documented by: Ferrous Sulfate (Ferrous Sulfate) 324 mg PO DAILY [facility] Furosemide (Lasix) 20 mg PO BIDDIURETIC [facility] Last Admin: 07/22/20 06:49 Dose: 20 mg Documented by: Sodium Chloride (Normal Saline) 500 mls @ 35 mls/hr IV ASDIRECTED [facility] Stop: 07/22/20 11:18 Last Admin: 07/22/20 02:17 Dose: 35 mls/hr Documented by: Levalbuterol HCl (Xopenex) 1.25 mg INH QIDRT PRN PRN Reason: Shortness of Breath Levothyroxine Sodium (Synthroid) 50 mcg PO ACBREAKFAST [facility] Last Admin: 07/22/20 06:49 Dose: 50 mcg Documented by: Losartan Potassium (Cozaar) 50 mg PO DAILY [facility] Last Admin: 07/22/20 09:49 Dose: 50 mg Documented by: Magnesium Oxide (Magnesium Oxide) 400 mg PO BID [facility] Stop: 07/22/20 21:01 Last Admin: 07/22/20 09:48 Dose: 400 mg Documented by: Mometasone Furoate/Formoterol Fumar (Dulera 100-5 Mcg) 2 puff IH BID [facility] Morphine Sulfate (Morphine) 2 mg IVPUSH Q2H PRN PRN Reason: Pain (severe 7-10) Stop: 07/22/20 13:40 Multivitamins (Thera) 1 each PO DAILY [facility] Last Admin: 07/22/20 09:48 Dose: 1 each Documented by: Ondansetron HCl (Zofran) 4 mg IV Q6H PRN PRN Reason: Nausea/Vomiting Pantoprazole Sodium (Protonix) 40 mg PO DAILY@0700 [facility] Last Admin: 07/22/20 06:49 Dose: 40 mg Documented by: Rosuvastatin Calcium (Crestor) 10 mg PO DAILY [facility] Last Admin: 07/22/20 09:47 Dose: 10 mg Documented by: Senna/Docusate Sodium (Senna Plus) 1 tab PO BID PRN PRN Reason: Constipation Tramadol HCl (Ultram) 50 mg PO Q8H PRN PRN Reason: Pain Vit A/Vit C/Vit E/Selen/Cu/Zn/Lutei (Icaps Mv) 1 tab PO DAILY [facility] Discontinued Medications Acetaminophen (Tylenol) 325 mg PO Q6H PRN PRN Reason: Pain Non-Formulary Medication (Fluticasone/Vilanterol) 1 puff INH DAILY [facility] Non-Formulary Medication (Levalbuterol Tartrate [Xopenex Hfa]) 2 puff INH QID PRN PRN Reason: sob Non-Formulary Medication (Ondansetron Hcl) 4 mg PO Q6H PRN PRN Reason: Nausea Non-Formulary Medication (Phenazopyridine) 100 mg PO TID [facility] - Exam Quality Assessment: Reports: DVT Prophylaxis. Denies: Supplemental Oxygen General: Reports: Alert, Oriented, Cooperative, No Acute Distress HEENT: Reports: Pupils Equal, Pupils Reactive, Mucous Membr. Moist/[place] Neck: Reports: Supple, Trachea Midline Lungs: Reports: Clear to Auscultation, Normal Respiratory Effort Cardiovascular: Reports: Regular Rate, Regular Rhythm GI/Abdominal Exam: Normal Bowel Sounds, Soft, Non-Tender, No Distention (Female) Exam: Deferred Rectal (Female) Exam: Normal Exam, Normal Rectal Tone Back Exam: Reports: Normal Inspection, Full Range of Motion Extremities: Normal Inspection, Normal Range of Motion, No Pedal Edema, Normal Capillary Refill, Leg Pain (left hip pain ) Skin: Reports: Warm, Dry, Intact Neurological: Reports: No New Focal Deficit Psy/Mental Status: Reports: Alert, Normal Affect, Normal Mood
[2020-07-22 11:55] VITALS: BP 144/89; PULSE 78
[2020-07-22] MEDS ORDERED: Levalbuterol HCl 1.25 MG/3 ML Neb INH PRN (16:00)
[2020-07-23] MEDS ORDERED: Ferrous Sulfate 324 MG Tab.EC PO SCH (09:00)
[2020-07-23] MEDS ORDERED: Multivitamins with Minerals/Folic Acid/Lutein/Zeaxanth Tab PO SCH (09:00)
== END 2020-07-22 16:07 | disposition home or self-care (01) ==
LOC: JD.ED 09:19 → JD.MS 13:05 → OBSVTOIN 07-22 08:19 → INTOOBSV 07-22 08:19
PROVIDERS: ADMIT Internal Medicine; ATTEND Internal Medicine
DX: S32.602A Unspecified fracture of left ischium, initial encounter for closed fracture (principal); E83.42 Hypomagnesemia; S32.512A Fracture of superior rim of left pubis, initial encounter for closed fracture; S32.511A Fracture of superior rim of right pubis, initial encounter for closed fracture; S32.592A Other specified fracture of left pubis, initial encounter for closed fracture; S32.591A Other specified fracture of right pubis, initial encounter for closed fracture; N18.2 Chronic kidney disease, stage 2 (mild); I12.9 Hypertensive chronic kidney disease with stage 1 through stage 4 chronic kidney disease, or unspecified chronic kidney disease; E78.5 Hyperlipidemia, unspecified; M81.0 Age-related osteoporosis without current pathological fracture; Z20.828 Contact with and (suspected) exposure to other viral communicable diseases; Z87.891 Personal history of nicotine dependence; Z88.8 Allergy status to other drugs, medicaments and biological substances; J44.9 Chronic obstructive pulmonary disease, unspecified; E11.22 Type 2 diabetes mellitus with diabetic chronic kidney disease; Z79.899 Other long term (current) drug therapy; X58.XXXA Exposure to other specified factors, initial encounter
CPT/HCPCS: 0240U; 36415; 72192; 73502; 80048; 80053; 82306; 83735; 85025; 97116; 97162; 97165; 97530; 97535; A9270; G0378; J7030

== ENCOUNTER 2021-06-18 08:33 | Day surgery (SDC) | payer MEDICARE, OTHER ==
[~2021-06-18 08:33] MED LIST changes: +Cefuroxime 10 MG/ML SYRINGE EYELF SCH; -Lactated Ringers 1,000 ML IV SCH; -Lidocaine 1%/Sod Bicarbonate in NS 8.4% 1 ML Syringe PRN; -Sodium Chloride 0.9% 10 ML Syringe FLUSH PRN
[2021-06-18] MEDS: Polymyxin B/Trimethoprim 10 ML Bottle EYELF SCH ×4 (09:13→10:48)
[2021-06-18] MEDS: Brimonidine 0.2% Ophth Soln 5 ML Bottle EYELF SCH ×4 (09:17→10:48)
[2021-06-18] MEDS: Phenylephrine 2.5% Ophth Soln 2 ML Bot EYELF SCH ×6 (09:20→10:28)
[2021-06-18] MEDS: Tropicamide 1% Ophth Soln 15 ML Bottle EYELF SCH ×4 (09:25→10:04)
[2021-06-18] MEDS: Tetracaine HCl/PF 0.5% 4 ML Bottle EYEBOTH SCH ×5 (09:43→10:33)
[2021-06-18] MEDS: Lidocaine 1% PF 2 ML SDV INJECT SCH ×2 (09:44→10:34)
[2021-06-18] MEDS: Pilocarpine 4% Ophth Soln 15 ML Bot EYELF SCH ×2 (09:44→10:48)
--- NOTE | 2021-06-18 09:46 | PCM.PREANE ---
Preanesthetic Assessment - Procedure Proposed Procedure: left cataract - Anesthesia/Transfusion/Family Hx Anesthesia History: Prior Anesthesia Without Reaction Family History of Anesthesia Reaction: No Transfusion History: No Prior Transfusion(s) - Review of Systems General: No Symptoms Pulmonary: Shortness of Breath (copd) Cardiovascular: No Symptoms Gastrointestinal: No Symptoms Neurological: Other (stroke 2017) Other: Reports: Diabetes (no meds), Thyroid Problems - Physical Assessment NPO Status Date: 06/17/21 NPO Status Time: 20:30 Vital Signs: Last Vital Signs Temp 97.7 F 06/18/21 08:40 Pulse 72 06/18/21 08:40 Resp 18 06/18/21 08:40 BP 159/53 H 06/18/21 08:40 Pulse Ox 97 06/18/21 08:40 Height: 5 ft 4 in Weight: 73.936 kg ASA Class: 2 Mental Status: Alert & Oriented x3 Airway Class: Mallampati = 1 Dentition: Reports: Dentures (top and bottom) Thyro-Mental Finger Breadths: 3 Mouth Opening Finger Breadths: 3 ROM/Head Extension: Full Lungs: Clear to Auscultation, Normal Respiratory Effort Cardiovascular: Regular Rate, Regular Rhythm - Allergies Allergies/Adverse Reactions: Allergies Allergy/AdvReac Type Severity Reaction Status Date / Time cefaclor Allergy Cannot Verified 06/18/21 09:03 Remember albuterol AdvReac Tachycardia Verified 06/18/21 09:03 - Blood Blood Available: No - Acknowledgements Anesthesia Type Planned: MAC Pt an Appropriate Candidate for the Planned Anesthesia: Yes Alternatives and Risks of Anesthesia Discussed w Pt/Guardian: Yes Pt/Guardian Understands and Agrees with Anesthesia Plan: Yes PreAnesthesia Questionnaire HEENT History: Reports: Cataract, Impaired Vision Other HEENT History: wears eyeglasses Cardiovascular History: Reports: Heart Murmur, High Cholesterol, Hypertension, SOB on Exertion, Other (See Below) (carotid arteries stents) Other Cardiovascular History: tachycardia Respiratory History: Reports: Bronchitis, Recurrent, COPD, Pneumonia, Recurrent Other Respiratory History: "has had pneumonia at least 3 times in her life" states her Gastrointestinal History: Reports: GERD Genitourinary History: Reports: Retention, Urinary, Other (See Below) Other Genitourinary History: kidney failure-states they have "gotten better si nce the contrast she used for her carotid surgery." 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: 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: Musculoskeletal History: Reports: Back Pain, Chronic, Osteoporosis, Other (See Below) Other Musculoskeletal History: spinal stenosis Neurological History: Reports: CVA Other Neuro History: 2017 Psychiatric History: Reports: Anxiety Endocrine/Metabolic History: Reports: Diabetes, Type II Hematologic History: Reports: Anemia Immunologic History: Reports: None Oncologic (Cancer) History: Reports: Other (See Below) Other Oncologic History: basal cell carcinoma on chin and on arm-removed Dermatologic History: Reports: None Other Dermatologic History: dry scaley patch noted to LFA - Infectious Disease History Infectious Disease History: Reports: Chicken Pox, Measles, Mumps, Shingles - Past Surgical History HEENT Surgical History: Reports: Adenoidectomy, Tonsillectomy Cardiovascular Surgical History: Reports: Carotid Endarterectomy, Carotid Stents 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 GI Surgical History: Reports: Colonoscopy, EGD Female Surgical History: Reports: Tubal Ligation Endocrine Surgical History: Reports: None Neurological Surgical History: Reports: None - SUBSTANCE USE Tobacco Use Status *Q: Former Tobacco User Tobacco Use Within Last Twelve Months: No Second Hand Smoke Exposure: Yes Days Per Week of Alcohol Use: 0 Recreational Drug Use History: No - HOME MEDS Home Medications: Home Meds ALPRAZolam [Xanax] 0.25 mg PO TID 07/04/17 [History] Acetaminophen [Acetaminophen Extra Strength] 325 mg PO Q6H PRN 07/04/17 [History] Aspirin 81 mg PO DAILY 07/04/17 [History] Docusate Sodium/Sennosides [Senna Plus] 8.6 - 50 mg PO BID PRN 07/04/17 [History] Pantoprazole [ProTONIX] 20 mg PO DAILY 07/04/17 [History] atorvaSTATin [Lipitor] 40 mg PO BEDTIME 07/04/17 [History] Furosemide [Lasix] 20 mg PO BIDDIURETIC tablet 07/08/17 [Rx] Losartan [Cozaar] 50 mg PO DAILY 09/27/17 [History] ondansetron HCL [Zofran] 4 mg PO Q6H PRN 09/27/17 [History] Levothyroxine [Synthroid] 50 mcg PO ACBREAKFAST 05/12/18 [History] amLODIPine [Norvasc] 2.5 mg PO DAILY 05/12/18 [History] Ferrous Sulfate, Dried [Iron] 320 mg PO DAILY 07/21/20 [History] Fluticasone/Vilanterol [Breo Ellipta 100-25 MCG Inhalation Kit] 1 puff INH DAILY 07/21/20 [History] Levalbuterol Tartrate [Xopenex HFA] 2 puff INH Q6HR PRN 07/21/20 [History] Multivit-Min/FA/Lycopen/Lutein [Certavite Senior Tablet] 1 tab PO DAILY 07/21/20 [History] Magnesium Oxide 400 mg PO DAILY #4 tablet 07/22/20 [Rx] traMADol [Ultram] 50 mg PO Q8H PRN #8 tablet 07/22/20 [Rx] - CURRENT (IN HOUSE) MEDS Current Meds: Current Medications Brimonidine Tartrate (Brimonidine 0.2% Ophth Soln 5 Ml Bottle) 0 ml EYELF ASDIRECTED MATT Stop: 06/18/21 23:00 Last Admin: 06/18/21 09:17 Dose: 1 drop Documented by: Cefuroxime Sodium (Cefuroxime 10 Mg/Ml Syringe) 0 mg EYELF ASDIRECTED [facility]ATT Stop: 06/18/21 23:00 Lidocaine HCl (Lidocaine 1% Pf 2 Ml Sdv) 0 ml INJECT ASDIRECTED [facility] Stop: 06/18/21 23:00 Phenylephrine HCl (Phenylephrine 2.5% Ophth Soln 2 Ml Bot) 0 ml EYELF ASDIRECTED [facility] Stop: 06/18/21 23:00 Last Admin: 06/18/21 09:36 Dose: 1 drop Documented by: Pilocarpine HCl (Pilocarpine 4% Ophth Soln 15 Ml Bot) 0 ml EYELF ASDIRECTED [facility] Stop: 06/18/21 23:00 Polymyxin/Trimethoprim Sulfate (Polymyxin B/Trimethoprim 10 Ml Bottle) 0 ml EYELF ASDIRECTED [facility] Stop: 06/18/21 23:00 Last Admin: 06/18/21 09:13 Dose: 1 drop Documented by: Tetracaine HCl (Tetracaine Hcl/Pf 0.5% 4 Ml Bottle) 0 ml EYEBOTH ASDIRECTED [facility]ATT Stop: 06/18/21 23:00 Tropicamide (Tropicamide 1% Ophth Soln 15 Ml Bottle) 0 ml EYELF ASDIRECTED [facility] Stop: 06/18/21 23:00 Last Admin: 06/18/21 09:40 Dose: 1 drop Documented by:
--- NOTE | 2021-06-18 10:49 | PCM48HPAN ---
Post Anesthesia Note - EVALUATION WITHIN 48HRS OF ANESTHETIC Vital Signs in Normal Range: Yes Patient Participated in Evaluation: Yes Respiratory Function Stable: Yes Airway Patent: Yes Cardiovascular Function Stable: Yes Hydration Status Stable: Yes Pain Control Satisfactory: Yes Nausea and Vomiting Control Satisfactory: Yes Mental Status Recovered: Yes Vital Signs: Last Vital Signs Temp 36.5 C 06/18/21 08:40 Pulse 72 06/18/21 08:40 Resp 18 06/18/21 08:40 BP 159/53 H 06/18/21 08:40 Pulse Ox 97 06/18/21 08:40
[2021-06-18 11:07] VITALS: BP 132/52; PULSE 65
== END 2021-06-18 11:00 | disposition home or self-care (01) ==
LOC: JD.SDS 08:33
PROVIDERS: ATTEND Ophthalmology
DX: E11.36 Type 2 diabetes mellitus with diabetic cataract (principal); H25.813 Combined forms of age-related cataract, bilateral; H35.363 Drusen (degenerative) of macula, bilateral; H35.3132 Nonexudative age-related macular degeneration, bilateral, intermediate dry stage; H16.223 Keratoconjunctivitis sicca, not specified as Sjogren's, bilateral; E78.00 Pure hypercholesterolemia, unspecified; I10 Essential (primary) hypertension; J44.9 Chronic obstructive pulmonary disease, unspecified; Z88.8 Allergy status to other drugs, medicaments and biological substances; Z86.73 Personal history of transient ischemic attack (TIA), and cerebral infarction without residual deficits; Z98.890 Other specified postprocedural states; Z79.899 Other long term (current) drug therapy
CPT/HCPCS: C1780

== ENCOUNTER 2021-06-30 09:31 | Day surgery (SDC) | payer MEDICARE, OTHER ==
[~2021-06-30 09:31] MED LIST changes: -Cefuroxime 10 MG/ML SYRINGE EYELF SCH; +Cefuroxime 10 MG/ML SYRINGE EYERT SCH
[2021-06-30] MEDS: Polymyxin B/Trimethoprim 10 ML Bottle EYERT SCH ×4 (10:15→12:07)
[2021-06-30] MEDS: Brimonidine 0.2% Ophth Soln 5 ML Bottle EYERT SCH ×4 (10:20→12:07)
[2021-06-30] MEDS: Phenylephrine 2.5% Ophth Soln 2 ML Bot EYERT SCH ×6 (10:25→11:41)
[2021-06-30] MEDS: Tropicamide 1% Ophth Soln 15 ML Bottle EYERT SCH ×4 (10:30→11:10)
--- NOTE | 2021-06-30 10:36 | PCM.PREANE ---
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, right hand coordination) Other: Reports: Diabetes, Anxiety - Physical Assessment NPO Status Date: 06/29/21 NPO Status Time: 21:30 Vital Signs: Last Vital Signs Temp 97.1 F 06/30/21 09:50 Pulse 72 06/30/21 09:50 Resp 16 06/30/21 09:50 BP 166/62 H 06/30/21 09:50 Pulse Ox 96 06/30/21 09:50 Height: 1.63 m Weight: 73.936 kg ASA Class: 3 Mental Status: Alert & Oriented x3 Airway Class: Mallampati = 2 Dentition: Reports: Dentures Thyro-Mental Finger Breadths: 2 Mouth Opening Finger Breadths: 2 ROM/Head Extension: Full Lungs: Clear to Auscultation, Normal Respiratory Effort Cardiovascular: Regular Rate, Regular Rhythm, Murmurs - Allergies Allergies/Adverse Reactions: Allergies Allergy/AdvReac Type Severity Reaction Status Date / Time cefaclor Allergy Cannot Verified 06/30/21 10:02 Remember albuterol AdvReac Tachycardia Verified 06/30/21 10:02 - Acknowledgements Anesthesia Type Planned: MAC Pt an Appropriate Candidate for the Planned Anesthesia: Yes Alternatives and Risks of Anesthesia Discussed w Pt/Guardian: Yes Pt/Guardian Understands and Agrees with Anesthesia Plan: Yes PreAnesthesia Questionnaire HEENT History: Reports: Cataract, Impaired Vision Other HEENT History: wears eyeglasses Cardiovascular History: Reports: Heart Murmur, High Cholesterol, Hypertension, SOB on Exertion, Other (See Below) (carotid arteries stents) Other Cardiovascular History: tachycardia Respiratory History: Reports: Bronchitis, Recurrent, COPD, Pneumonia, Recurrent Other Respiratory History: "has had pneumonia at least 3 times in her life" states her Gastrointestinal History: Reports: GERD (dependent on what she eats) Genitourinary History: Reports: Retention, Urinary, Other (See Below) Other Genitourinary History: kidney failure-states they have "gotten better since the contrast she used for her carotid surgery." 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: Musculoskeletal History: Reports: Back Pain, Chronic, Osteoporosis, Other (See Below) Other Musculoskeletal History: spinal stenosis Neurological History: Reports: CVA Other Neuro History: 2017-right side uncoordinated Psychiatric History: Reports: Anxiety Endocrine/Metabolic History: Reports: Diabetes, Type II Hematologic History: Reports: Anemia Immunologic History: Reports: None Oncologic (Cancer) History: Reports: Other (See Below) Other Oncologic History: basal cell carcinoma on chin and on arm-removed Dermatologic History: Reports: None Other Dermatologic History: dry scaley patch noted to LFA - Infectious Disease History Infectious Disease History: Reports: Chicken Pox, Measles, Mumps, Shingles - Past Surgical History HEENT Surgical History: Reports: Adenoidectomy, Tonsillectomy Cardiovascular Surgical History: Reports: Carotid Endarterectomy, Carotid Stents 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 GI Surgical History: Reports: Colonoscopy, EGD Female Surgical History: Reports: Tubal Ligation Endocrine Surgical History: Reports: None Neurological Surgical History: Reports: None - SUBSTANCE USE Tobacco Use Status *Q: Former Tobacco User (Quit 2017) Tobacco Use Within Last Twelve Months: No Second Hand Smoke Exposure: Yes Days Per Week of Alcohol Use: 0 Number of Drinks Per Day: 0 Total Drinks Per Week: 0 Recreational Drug Use History: No - HOME MEDS Home Medications: Home Meds ALPRAZolam [Xanax] 0.25 mg PO TID 07/04/17 [History] Acetaminophen [Acetaminophen Extra Strength] 325 mg PO Q6H PRN 07/04/17 [History] Aspirin 81 mg PO DAILY 07/04/17 [History] Docusate Sodium/Sennosides [Senna Plus] 8.6 - 50 mg PO BID PRN 07/04/17 [History] Pantoprazole [ProTONIX] 20 mg PO DAILY 07/04/17 [History] atorvaSTATin [Lipitor] 40 mg PO BEDTIME 07/04/17 [History] Furosemide [Lasix] 20 mg PO BIDDIURETIC tablet 07/08/17 [Rx] Losartan [Cozaar] 50 mg PO DAILY 09/27/17 [History] ondansetron HCL [Zofran] 4 mg PO Q6H PRN 09/27/17 [History] Levothyroxine [Synthroid] 50 mcg PO ACBREAKFAST 05/12/18 [History] amLODIPine [Norvasc] 2.5 mg PO DAILY 05/12/18 [History] Ferrous Sulfate, Dried [Iron] 320 mg PO DAILY 07/21/20 [History] Fluticasone/Vilanterol [Breo Ellipta 100-25 MCG Inhalation Kit] 1 puff INH DAILY 07/21/20 [History] Levalbuterol Tartrate [Xopenex HFA] 2 puff INH Q6HR PRN 07/21/20 [History] Multivit-Min/FA/Lycopen/Lutein [Certavite Senior Tablet] 1 tab PO DAILY 07/21/20 [History] Magnesium Oxide 400 mg PO DAILY #4 tablet 07/22/20 [Rx] traMADol [Ultram] 50 mg PO Q8H PRN #8 tablet 07/22/20 [Rx] - CURRENT (IN HOUSE) MEDS Current Meds: Current Medications Brimonidine Tartrate (Brimonidine 0.2% Ophth Soln 5 Ml Bottle) 0 ml EYERT ASDIRECTED MATT Stop: 06/30/21 16:00 Last Admin: 06/30/21 10:20 Dose: 1 drop Documented by: Lidocaine HCl (Lidocaine 1% Pf 2 Ml Sdv) 0 ml INJECT ASDIRECTED MATT Stop: 06/30/21 16:00 Phenylephrine HCl (Phenylephrine 2.5% Ophth Soln 2 Ml Bot) 0 ml EYERT ASDIRECTED MATT Stop: 06/30/21 16:00 Last Admin: 06/30/21 10:25 Dose: 1 drop Documented by: Pilocarpine HCl (Pilocarpine 4% Ophth Soln 15 Ml Bot) 0 ml EYERT ASDIRECTED MATT Stop: 06/30/21 16:00 Polymyxin/Trimethoprim Sulfate (Polymyxin B/Trimethoprim 10 Ml Bottle) 0 ml EYERT ASDIRECTED MATT Stop: 06/30/21 16:00 Last Admin: 06/30/21 10:15 Dose: 1 drop Documented by: Tetracaine HCl (Tetracaine Hcl/Pf 0.5% 4 Ml Bottle) 0 ml EYEBOTH ASDIRECTED MATT Stop: 06/30/21 16:00 Tropicamide (Tropicamide 1% Ophth Soln 15 Ml Bottle) 0 ml EYERT ASDIRECTED MATT Stop: 06/30/21 16:00 Last Admin: 06/30/21 10:30 Dose: 1 drop Documented by: Discontinued Medications Cefuroxime Sodium (Cefuroxime 10 Mg/Ml Syringe) 0 mg EYERT ASDIRECTED MATT
[2021-06-30] MEDS: Tetracaine HCl/PF 0.5% 4 ML Bottle EYEBOTH SCH ×5 (11:27→11:49)
[2021-06-30] MEDS: Lidocaine 1% PF 2 ML SDV INJECT SCH ×2 (11:35→11:50)
[2021-06-30] MEDS: Pilocarpine 4% Ophth Soln 15 ML Bot EYERT SCH ×2 (11:36→12:07)
--- NOTE | 2021-06-30 12:09 | PCM48HPAN ---
Post Anesthesia Note - EVALUATION WITHIN 48HRS OF ANESTHETIC Vital Signs in Normal Range: Yes Patient Participated in Evaluation: Yes Respiratory Function Stable: Yes Airway Patent: Yes Cardiovascular Function Stable: Yes Hydration Status Stable: Yes Pain Control Satisfactory: Yes Nausea and Vomiting Control Satisfactory: Yes Mental Status Recovered: Yes Vital Signs: Last Vital Signs Temp 36.2 C 06/30/21 09:50 Pulse 72 06/30/21 09:50 Resp 16 06/30/21 09:50 BP 166/62 H 06/30/21 09:50 Pulse Ox 96 06/30/21 09:50
[2021-06-30 12:20] VITALS: BP 145/69; PULSE 71
== END 2021-06-30 12:17 | disposition home or self-care (01) ==
LOC: JD.SDS 09:31
PROVIDERS: ATTEND Ophthalmology
DX: E11.36 Type 2 diabetes mellitus with diabetic cataract (principal); H25.811 Combined forms of age-related cataract, right eye; H35.3132 Nonexudative age-related macular degeneration, bilateral, intermediate dry stage; H35.363 Drusen (degenerative) of macula, bilateral; H16.223 Keratoconjunctivitis sicca, not specified as Sjogren's, bilateral; E78.00 Pure hypercholesterolemia, unspecified; I10 Essential (primary) hypertension; Z86.73 Personal history of transient ischemic attack (TIA), and cerebral infarction without residual deficits; Z98.890 Other specified postprocedural states; Z87.891 Personal history of nicotine dependence; Z79.899 Other long term (current) drug therapy; Z79.82 Long term (current) use of aspirin; Z88.8 Allergy status to other drugs, medicaments and biological substances; Z96.1 Presence of intraocular lens
CPT/HCPCS: C1780

== ENCOUNTER 2022-01-07 14:37 | Emergency (ER) | payer MEDICARE, OTHER ==
[2022-01-07] MEDS ORDERED: Sodium Chloride 0.9% 1,000 ML IV SCH (15:45)
[2022-01-07 18:46] VITALS: BP 137/48; PULSE 91
== END 2022-01-07 20:58 | disposition home or self-care (01) ==
LOC: JD.ED 14:37
DX: D64.9 Anemia, unspecified (principal); E78.00 Pure hypercholesterolemia, unspecified; J44.9 Chronic obstructive pulmonary disease, unspecified; I10 Essential (primary) hypertension; E11.9 Type 2 diabetes mellitus without complications; Z86.73 Personal history of transient ischemic attack (TIA), and cerebral infarction without residual deficits; Z86.16 Personal history of COVID-19; Z87.891 Personal history of nicotine dependence; Z79.899 Other long term (current) drug therapy; Z79.82 Long term (current) use of aspirin; Z91.041 Radiographic dye allergy status; Z88.1 Allergy status to other antibiotic agents; Z88.8 Allergy status to other drugs, medicaments and biological substances
CPT/HCPCS: 36415; 36430; 86850; 86900; 86901; 86922; 96360; 96361; 99284; J7030; P9016; 99283

== ENCOUNTER 2022-02-08 07:23 | Day surgery (SDC) | payer MEDICARE, OTHER ==
[~2022-02-08 07:23] MED LIST changes: -Cefuroxime 10 MG/ML SYRINGE EYERT SCH; +Lactated Ringers 1,000 ML IV SCH; +Lidocaine 1%/Sod Bicarbonate in NS 8.4% 1 ML Syringe IDERM PRN; +Sodium Chloride 0.9% 10 ML Syringe FLUSH PRN; +Sodium Chloride 0.9% 10 ML Syringe FLUSH SCH
[2022-02-08] MEDS ORDERED: Propofol 200 MG/20 ML SDV ONE ×4 (08:57→10:31)
[2022-02-08] MEDS ORDERED: Lidocaine 1% 4 ML ONE (08:57)
[2022-02-08] MEDS ORDERED: Simethicone 80 MG Tab.Chew PO ONE (11:16)
[2022-02-08 12:19] VITALS: BP 140/62; PULSE 72
== END 2022-02-08 11:55 | disposition home or self-care (01) ==
LOC: JD.SDS 07:23
PROVIDERS: ATTEND Surgery
DX: D12.0 Benign neoplasm of cecum (principal); K62.1 Rectal polyp; K31.7 Polyp of stomach and duodenum; K57.31 Diverticulosis of large intestine without perforation or abscess with bleeding; K44.9 Diaphragmatic hernia without obstruction or gangrene; D50.9 Iron deficiency anemia, unspecified; E78.5 Hyperlipidemia, unspecified; M81.0 Age-related osteoporosis without current pathological fracture; J44.9 Chronic obstructive pulmonary disease, unspecified; F41.9 Anxiety disorder, unspecified; N18.9 Chronic kidney disease, unspecified; E78.00 Pure hypercholesterolemia, unspecified; E11.22 Type 2 diabetes mellitus with diabetic chronic kidney disease; I12.9 Hypertensive chronic kidney disease with stage 1 through stage 4 chronic kidney disease, or unspecified chronic kidney disease; Z86.73 Personal history of transient ischemic attack (TIA), and cerebral infarction without residual deficits; Z79.82 Long term (current) use of aspirin; Z98.890 Other specified postprocedural states; Z79.899 Other long term (current) drug therapy; Z88.8 Allergy status to other drugs, medicaments and biological substances; Z91.041 Radiographic dye allergy status; Z87.891 Personal history of nicotine dependence; Z86.16 Personal history of COVID-19
CPT/HCPCS: 43239; 43255; 45380; 88305; A9270; J2704; J7120; 00813; 99100

== ENCOUNTER 2022-02-11 20:57 | Emergency (ER) | payer MEDICARE, OTHER ==
[2022-02-11 21:30] VITALS: BP 203/81; PULSE 108
[2022-02-11] MEDS ORDERED: Loperamide 2 MG Cap PO STA (23:27)
[2022-02-11] MEDS ORDERED: Ondansetron 4 MG Tab.DIS PO ONE (23:27)
== END 2022-02-11 23:55 | disposition home or self-care (01) ==
LOC: JD.ED 20:57
DX: R19.7 Diarrhea, unspecified (principal); R11.0 Nausea; K21.9 Gastro-esophageal reflux disease without esophagitis; I10 Essential (primary) hypertension; E11.9 Type 2 diabetes mellitus without complications; Z86.73 Personal history of transient ischemic attack (TIA), and cerebral infarction without residual deficits; Z88.1 Allergy status to other antibiotic agents; Z91.041 Radiographic dye allergy status; Z88.8 Allergy status to other drugs, medicaments and biological substances; Z79.899 Other long term (current) drug therapy; Z79.82 Long term (current) use of aspirin; Z86.16 Personal history of COVID-19
CPT/HCPCS: 99283; A9270

== ENCOUNTER 2024-08-16 19:17 | Emergency (ER) | payer MEDICARE, OTHER ==
[2024-08-16 22:04] LABS: BASOPHILS PERCENT AUTO 0.2 % (0.0-1.0); EOSINOPHILS PERCENT AUTO 0.2 % (0.0-6.0); HEMATOCRIT 30.3 % (37.0-47.0); IMMATURE GRAN ABSOLUTE AUTO 0.02 K/mm3 (0.00-0.05); IMMATURE GRAN PERCENT AUTO 0.4 % (0.0-0.4); LYMPHOCYTES ABSOLUTE AUTO 0.6 K/mm3 (1.0-4.8); LYMPHOCYTES PERCENT AUTO 12.9 % (24.0-44.0); MEAN CORPUSCULAR HEMOGLOBIN 30.3 pg (28.0-32.0); MEAN CORPUSCULAR VOLUME 91.8 fl (83.0-99.0); MEAN PLATELET VOLUME 8.5 fl (9.4-12.3); MONOCYTES PERCENT AUTO 20.8 % (0.0-8.0); NEUTROPHILS ABSOLUTE AUTO 3.3 K/mm3 (1.8-7.7); NEUTROPHILS PERCENT AUTO 65.5 % (41.0-71.0); PLATELET COUNT,PLT 226 K/mm3 (150-400); WHITE BLOOD CELL COUNT,WBC 4.96 K/mm3 (3.9-11.3)
[2024-08-16 22:22] LABS: SLIDE REVIEW ABNORMAL SMEAR
[2024-08-16 22:36] LABS: A/G RATIO 0.9 (1-2); ALBUMIN 3.3 g/dl (3.4-5.0); ANION GAP 13.7 (5-15); BILIRUBIN TOTAL 0.5 mg/dL (0.2-1.0); BUN/CREATININE RATIO 13.8 (14-18); CALCIUM 9.6 mg/dL (8.5-10.1); CREATININE 2.4 mg/dL (0.55-1.02); EST CRCL DRUG DOSING (CG) 15.46 mL/min; MAGNESIUM 1.7 mg/dL (1.8-2.4); POTASSIUM,K 3.7 mEq/L (3.5-5.1)
[2024-08-17] MEDS: Furosemide 40 MG/4 ML VIAL IVPUSH ONE (00:18)
[2024-08-17 02:12] VITALS: BP 161/74; PULSE 76
== END 2024-08-17 02:00 | disposition home or self-care (01) ==
LOC: JD.ED 19:17
DX: R09.02 Hypoxemia (principal); E83.42 Hypomagnesemia; R79.89 Other specified abnormal findings of blood chemistry; I11.0 Hypertensive heart disease with heart failure; I50.9 Heart failure, unspecified; E78.00 Pure hypercholesterolemia, unspecified; J44.9 Chronic obstructive pulmonary disease, unspecified; K21.9 Gastro-esophageal reflux disease without esophagitis; E11.9 Type 2 diabetes mellitus without complications; Z86.73 Personal history of transient ischemic attack (TIA), and cerebral infarction without residual deficits; Z86.16 Personal history of COVID-19; Z88.8 Allergy status to other drugs, medicaments and biological substances; Z91.041 Radiographic dye allergy status; Z79.82 Long term (current) use of aspirin; Z79.890 Hormone replacement therapy; Z79.899 Other long term (current) drug therapy
CPT/HCPCS: 36415; 80053; 83735; 83880; 84484; 85025; 85379; 93005; 96365; 96375; 99285; J1940; J3475